=== PATIENT | male | born 1955 | race Caucasian/White ===

== ENCOUNTER 2022-12-13 14:16 | Outpatient (OUT) | payer MEDICARE, OTHER, SELFPAY ==
[2022-12-13 14:41] LABS: Bilirubin Urine NEGATIVE (NEGATIVE); Blood Urine NEGATIVE (NEGATIVE); Clarity Urine CLEAR (CLEAR); Color Urine LT. YELLOW (YELLOW); Glucose Urine UA NEGATIVE (NEGATIVE); Ketones Urine NEGATIVE (NEGATIVE); Leukocyte Esterase Urine NEGATIVE (NEGATIVE); Nitrite Urine NEGATIVE (NEGATIVE); Protein Urine NEGATIVE (NEG/TRACE); Urobilinogen Urine 0.2 EU/dL (0.2-1.0)
[2022-12-13 14:50] LABS: Basophils Absolute Auto 0.1 10^3/uL (0.0-0.1); Basophils Percent Auto 0.9 % (0.2-2.0); Eosinophils Absolute Auto 0.1 10^3/uL (0.0-0.7); Eosinophils Percent Auto 2.5 % (0.9-7.0); Hematocrit 37.4 % (42.0-54.0); Hemoglobin 13.2 g/dL (14.0-18.0); Immature Granulocytes Abs Auto 0.01 10^3/uL (0.00-0.03); Immature Granulocytes Pct Auto 0.2 % (0.0-0.5); Lymphocytes Absolute Auto 1.9 10^3/uL (1.2-3.8); Lymphocytes Percent Auto 33.6 % (20.5-60.0); Mean Corpuscular HGB Conc 35.3 g/dL (29.9-35.2); Mean Corpuscular Volume 90.6 fL (80.0-94.0); Mean Platelet Volume 9.4 fL (9.5-13.5); Monocytes Absolute Auto 0.6 10^3/uL (0.3-0.8); Monocytes Percent Auto 9.6 % (1.7-12.0); Neutrophils Percent Auto 53.2 % (43.0-75.0); Platelet Count 173 10^3/uL (150-450); Red Blood Count 4.13 10^6/uL (4.70-6.10); Red Cell Distribution Width 12.8 % (11.0-15.0); White Blood Count 5.7 10^3/uL (4.0-11.0)
[2022-12-13 14:51] LABS: Estimated Average Glucose 128 mg/dL; Glycohemoglobin A1C 6.1 % (4.5-6.2)
[2022-12-13 14:55] LABS: Bacteria Urine TRACE #/HPF (NONE SEEN); Mucus Urine NONE SEEN (NONE SEEN); RBC Urine 0-2 #/HPF (0-2); Squamous Epithelial Cell Urine RARE #/LPF (NONE/RARE); WBC Urine 0-2 #/HPF (NONE SEEN)
[2022-12-13 14:56] LABS: Cast Seen? NONE SEEN #/LPF (NONE SEEN); Crystals Seen? None Seen #/HPF (None Seen); Urine Culture Indicated NO
[2022-12-13 14:57] LABS: Carbon Dioxide 30.9 mmol/L (21.0-32.0); Chloride 100 mmol/L (98-107); Estimated GFR (African America >60 (>=60); Estimated GFR (Non-African Ame 55 (>=60); Glucose 127 mg/dL (74-106); Potassium 3.9 mmol/L (3.5-5.1); Sodium 137 mmol/L (136-145)
[2022-12-13 15:03] LABS: BUN Creatinine Ratio 14.6
[2022-12-13 15:17] LABS: Prostate Specific Antigen Scrn 0.67 ng/mL (<=4.00)
== END 2022-12-13 14:17 | disposition home or self-care (01) ==
PROVIDERS: PCP Internal Medicine; Visit Provider Internal Medicine
DX: N36.8 Other specified disorders of urethra (principal); I10 Essential (primary) hypertension; Z12.5 Encounter for screening for malignant neoplasm of prostate; R73.01 Impaired fasting glucose; R82.90 Unspecified abnormal findings in urine
CPT/HCPCS: 36415; 80048; 81001; 83036; 85025; 87086; G0103

== ENCOUNTER 2023-03-06 13:46 | Outpatient (OUT) | payer MEDICARE, OTHER, SELFPAY ==
[2023-03-06 14:49] LABS: Basophils Absolute Auto 0.1 10^3/uL (0.0-0.1); Basophils Percent Auto 0.9 % (0.2-2.0); Eosinophils Absolute Auto 0.1 10^3/uL (0.0-0.7); Eosinophils Percent Auto 1.2 % (0.9-7.0); Hematocrit 37.6 % (42.0-54.0); Hemoglobin 12.8 g/dL (14.0-18.0); Immature Granulocytes Abs Auto 0.03 10^3/uL (0.00-0.03); Immature Granulocytes Pct Auto 0.4 % (0.0-0.5); Lymphocytes Absolute Auto 2.1 10^3/uL (1.2-3.8); Lymphocytes Percent Auto 30.5 % (20.5-60.0); Mean Corpuscular Hemoglobin 30.7 pg (25.9-34.0); Mean Corpuscular Volume 90.2 fL (80.0-94.0); Monocytes Absolute Auto 0.7 10^3/uL (0.3-0.8); Monocytes Percent Auto 9.6 % (1.7-12.0); Neutrophils Absolute Auto 3.9 10^3/uL (1.4-6.5); Neutrophils Percent Auto 57.4 % (43.0-75.0); Platelet Count 179 10^3/uL (150-450); Red Blood Count 4.17 10^6/uL (4.70-6.10); Red Cell Distribution Width 12.9 % (11.0-15.0); White Blood Count 6.9 10^3/uL (4.0-11.0)
[2023-03-06 15:14] LABS: Percent Iron Saturation 18.4 %
[2023-04-09 14:45] LABS: Reticulocyte Count 1.44 % (0.60-3.10)
== END 2023-03-06 13:47 | disposition home or self-care (01) ==
LOC: LAB 13:49
PROVIDERS: PCP Internal Medicine; Visit Provider Internal Medicine
DX: D64.9 Anemia, unspecified (principal)
CPT/HCPCS: 36415; 82607; 82728; 82746; 83540; 83550; 85025; 85045

== ENCOUNTER 2023-12-19 09:12 | Outpatient (OUT) | payer MEDICARE, OTHER, SELFPAY ==
--- OUTSIDE RECORDS SUMMARY | 2023-12-19 09:21 | XMS_ITS | CCD ---
Author Organization [facility] Care Team Providers Care Technical Clerk Name Role Phone Eric Rose Unavailable ABHI, DR TEIXEIRA Primary Care Unavailable ABHI, DR TEIXEIRA Admitting Unavailable ABHI, DR TEIXEIRA Attending Unavailable ABHI, DR TEIXEIRA Consulting Unavailable ABHI, DR TEIXEIRA Admitting Unavailable ABHI, DR TEIXEIRA Attending Unavailable ABHI, DR TEIXEIRA Consulting Unavailable ABHI, DR TEIXEIRA Primary Care Unavailable JAIRO MOE Primary Care Physician [phone] Jairo Moe DO Primary Care Provider AURE PIPER Referring Unavailable AURE PIPER Attending Unavailable JAIRO MOE Primary Care Unavailable AURE PIPER Referring Unavailable SAUL, AURE White Referring Unavailable Jairo Moe Unavailable DO Jairo Moe Primary Care Provider [phone] LINWOOD Jay Attending Provider [phone] Jairo Moe Primary Care Unavailable Fariha Jay Attending Unavailable Fariha Jay Admitting Unavailable Lorenzo CHAU Admitting Unavailable Lorenzo CHAU Attending Unavailable Lorenzo CHAU Attending Unavailable Lorenzo CHAU Attending Unavailable Lorenzo CHAU Attending Unavailable CHAULorenzo Attending Unavailable JAIRO MOE Referring Unavailable Lorenzo CHAU Attending Unavailable Allergies Allergy Classification Reported Allergen(s) Allergy Type Date of Onset Reaction(s) Facility (1 source) No Known Medication Allergies; Translations: [No Known Medication Allergies] Propensity to adverse reactions (disorder) [facility] Repository Medications Current Medications Medication Drug Class(es) Dates Sig (Normalized) Sig (Original) allopurinol 100 mg oral tablet (3 sources) Xanthine Oxidase Inhibitor Start: 10-19-2023 take 2 tablets by mouth once daily Allopurinol Active 0 .ROUTE .COMPLEX 180 October 19, 2023 5:12pm TAKE 2 TABLETS BY MOUTH EVERY DAY Start: 09-27-2023 End: 10-19-2023 take 200 mg by mouth once daily Allopurinol Discontinued 200 MG PO Daily September 27, 2023 12:00am October 19, 2023 5:12pm azithromycin 250 mg oral tablet (7 sources) Macrolide Antimicrobial Start: 12-13-2022 Azithromycin 250 MG as directed Orally daily for 5 days Nov, Active colchicine 0.6 mg oral capsule (2 sources) Start: 09-27-2023 take 0.6 mg by mouth once daily Colchicine Active 0.6 MG PO Daily September 27, 2023 12:00am hydroCHLOROthiazide 12.5 mg / olmesartan medoxomil 40 mg oral tablet (11 sources) Thiazide Diuretic, Angiotensin 2 Receptor Cam Start: 12-03-2023 take 1 tablet by mouth once daily Olmesartan-Hydroc hlorothiazide Active 0 .ROUTE .COMPLEX 90 December 03, 2023 1:45pm TAKE 1 TABLET BY MOUTH EVERY DAY Start: 04-18-2023 End: 12-03-2023 take 1 tablet by mouth once daily Olmesartan-Hydrochlorothiazide Discontin ued 1 TAB PO Daily April 18, 2023 1:00am December 03, 2023 1:45pm [facility] Olmesartan Medoxomil-HCTZ 40-12.5 MG CRISSY E 1 TABLET BY MOUTH EVERY DAY FOR 30 DAYS Active Multi Vitamin+ (1 source) Start: 05-23-2023 Multi Vitamin+ Refill(s) 0 Start Date: 05/23/23 Status: Ordered olmesartan medoxomil 40 mg oral tablet (1 source) Angiotensin 2 Receptor Cam take 1 tablet by mouth once daily Olmesartan Medoxomil 40 MG TAKE 1 TABLET BY MOUTH EVERY DAY DIRECTED for 90 Active polysaccharide iron complex 150 mg oral capsule (20 sources) Start: 04-18-2023 take 150 mg by mouth once daily Polysaccharide Iron Complex Active 150 MG PO Daily April 18, 2023 1:00am take 1 capsule by mo [facility] every twenty-four hours Ferrex 150 150 MG 1 capsule Orally Once a day Active Polysaccharide I oxana Complex 150 MG TAKE 1 CAPSULE EVERY OTHER DAY for 30 Not-Taking/PRN Polysaccharide I oxana Complex 150 MG TAKE 1 CAPSULE EVERY OTHER DAY for 30 Not-Taking sildenafil 100 mg oral tablet (13 sources) Phosphodiesterase 5 Inhibitor Start: 08-30-2023 take 1 tablet by mouth once daily as needed Sildenafil Active 0 .ROUTE .COMPLEX 6 August 30, 2023 8:33am TAKE 1 TABLET BY MOUTH ONCE A DAY NEEDED Start: 04-18-2023 End: 08-30-2023 take 100 mg by mouth once daily Sildenafil Discontinue d 100 MG PO Daily April 18, 2023 1:00am August 30, 2023 8:33am Start: 07-07-2022 take 1 tablet by shayla th once daily as needed Sildenafil Citrate 100 MG 1 tablet as needed Orally Once a day as needed for ED for 30 days June, Active Completed/Discontinued Medications Medication Drug Class(es) Dates Sig (Normalized) Sig (Original) amLODIPine 5 mg oral tablet (13 sources) Dihydropyridine Calcium Channel Cam Start: 01-15-2020 End: 04-18-2023 take 5 mg by mouth once daily Amlodipine Discontinued 5 MG PO Daily January 15, 2020 1:00am April 18, 2023 4:32pm take 1 tablet by shayla th every twenty-four hours amLODIPine Besylate 10 MG 1 tablet Orall y Once a day Active Comment on above: Take 5 mg by mouth o nce daily. amoxicillin 875 mg / clavulanate 125 mg oral tablet (20 sources) Penicillin-class Antibacterial Start: 08-24-19 13 take 1 tablet by mouth every twelve hours Amoxicillin-Pot Clavulanate 875-125 MG 1 tablet Orally every 12 hrs for 7 days Feb, Not-Taking/PRN sulfamethoxazole 800 mg / trimethoprim 160 mg oral tablet (12 sources) Dihydrofolate Reductase Inhibitor Antibacterial, Sulfonamide Antimicrobial Start: 09-24-19 21 take 1 tablet by mouth every twelve hours Bactrim DS 800-160 MG 1 tablet Orally Twice a day for 10 days June, Not-Taking/PRN Comment on above: Take 1 tablet by shayla th twice daily. Problems Active Problems Problem Classification Problem Date Documented Date Episodic/Chronic Acute bronchitis (1 source) Acute bronchitis due to other specified organisms Episodic Deficiency and other anemia (2 sources) Iron deficiency anemia due to blood loss; Translations: [Iron deficiency anemia secondary to blood loss (chronic)] Chronic Deficiency and other anemia (1 source) Iron deficiency anemia secondary to blood loss (chronic) Chronic Deficiency and other anemia (5 sources) Anemia, unspecified; Translations: [ANEMIA UNSPECIFIED] Onset: 01-31-2022 Episodic Deficiency and other anemia (12 sources) Iron deficiency anemia; Translations: [Other iron deficiency anemias] 04-19-2023 Episodic Deficiency and other anemia (10 sources) Anemia; Translations: [Anemia, unspecified] Episodic Deficiency and other anemia (1 source) Other iron deficiency anemias Episodic Diabetes mellitus without complication (19 sources) Impaired fasting glucose; Translations: [Impaired fasting glycemia] Onset: 12-13-2021 Episodic Disorders of lipid metabolism (13 sources) Pure hypercholesterolemia , unspecified; Translations: [Hypercholesterolemi a] Onset: 12-18-2021 12-18-2023 Chronic Esophageal disorders (8 sources) Gastro-esophageal reflux disease with esophagitis; Translations: [Gastro-esophageal reflux disease with esophagitis, without bleeding] Chronic Essential hypertension (20 sources) Essential (primary) hypertension; Translations: [Hypertensive disorder] Onset: 12-18-2021 12-13-2020 Chronic Genitourinary symptoms and ill-defined conditions (20 sources) Microscopic hematuria; Translations: [Other microscopic hematuria] Onset: 03-01-2022 Episodic Gout and other crystal arthropathies (2 sources) Acute gout; Translations: [Gout, unspecified] 09-27-2023 Chronic Hyperplasia of prostate (20 sources) Benign prostatic hypertrophy without outflow obstruction; Translations: [Benign prostatic hyperplasia without lower urinary tract symptoms] Onset: 03-01-2022 Chronic Nonspecific chest pain (12 sources) Other chest pain; Translations: [Chest pain] Onset: 01-18-2022 01-18-2022 Episodic Other aftercare (1 source) Other termite control service representative (current) drug therapy; Translations: [OTH WELL LOGGING MUD ANALYSIS CAPTAIN CURRENT DRUG THERAPY] Onset: 12-18-2021 Episodic Other aftercare (10 sources) H/O: high risk medication; Translations: [Other jail (current) drug therapy] Episodic Other diseases of bladder and urethra (11 sources) Other specified disorders of urethra; Translations: [Bloody urethral discharge] Episodic Other diseases of bladder and urethra (1 source) Urethral stricture; Translations: [Unspecified urethral stricture, male, unspecified site] 09-27-2023 Episodic Other diseases of bladder and urethra (1 source) Unspecified urethral stricture, male, unspecified site; Translations: [Urethral stricture, unspecified] 09-27-2023 Episodic Other diseases of veins and lymphatics (12 sources) Peripheral venous insufficiency; Translations: [Venous insufficiency (chronic) (peripheral)] 04-18-2023 Episodic Other diseases of veins and lymphatics (2 sources) Venous insufficiency (chronic) (peripheral) Episodic Other lower respiratory disease (1 source) Dyspnea on exertion; Translations: [Other forms of dyspnea] Episodic Other male genital disorders (9 sources) Erectile dysfunction co-occurrent and due to arterial insufficiency; Translations: [Erectile dysfunction due to arterial insufficiency] Chronic Other nutritional; endocrine; and metabolic disorders (1 source) Body mass index 40+ - severely obese; Translations: [Morbid (severe) obesity due to excess calories] Chronic Other nutritional; endocrine; and metabolic disorders (10 sources) Morbid obesity; Translations: [Morbid (severe) obesity due to excess calories] Chronic Other nutritional; endocrine; and metabolic disorders (1 source) Morbid (severe) obesity due to excess calories Chronic Other nutritional; endocrine; and metabolic disorders (1 source) Obesity; Translations: [Obesity, unspecified] 12-18-2023 Chronic Other nutritional; endocrine; and metabolic disorders (1 source) Obesity, unspecified; Translations: [Obesity, unspecified] 12-18-2023 Chronic Other screening for suspected conditions (not mental disorders or infectious disease) (9 sources) Encounter for screening for malignant neoplasm of prostate; Translations: [Screening for malignant neoplasm done] Onset: 12-18-2021 Episodic Other upper respiratory infections (1 source) Acute maxillary sinusitis, unspecified Episodic Residual codes; unclassified (13 sources) Obstructive sleep apnea syndrome; Translations: [Obstructive sleep apnea (adult) (pediatric)] 04-19-2023 Chronic Residual codes; unclassified (2 sources) Obstructive sleep apnea (adult) (pediatric); Translations: [Obstructive sleep apnea (adult)(pediatric)] Onset: 02-22-2021 Resolved: 02-22-2021 Chronic Residual codes; unclassified (1 source) Obstructive sleep apnea (adult)(pediatric); Translations: [Obstructive sleep apnea (adult) (pediatric)] Onset: 03-20-2023 Chronic Residual codes; unclassified (11 sources) Insomnia; Translations: [Insomnia, unspecified] Episodic Skin and subcutaneous tissue infections (20 sources) Cellulitis and abscess of toe; Translations: [Cellulitis, toe] Episodic Unclassified (6 sources) Patient encounter status 03-01-2022 Viral infection (1 source) Disease caused by 2019-nCoV; Translations: [COVID-19] 01-15-2020 Episodic Past or Other Problems Problem Classification Problem Date Documented Da te Episodic/Chronic Esophageal disorders (2 sources) Esophageal disorders; Translations: [Gastro-esophageal reflux disease with esophagitis, without bleeding] Joint disorders and dislocations; trauma-related (3 sources) Acute tear of medial meniscus of right knee; Translations: [Other tear of medial meniscus, current injury, right knee, initial encounter] Onset: 07-22-2018 07-22-2018 Episodic Residual codes; unclassified (1 source) Insomnia, unspecified Onset: 02-22-2021 Resolved: 02-22-2021 Episodic Results Test Name Value Interpretation Reference Range Facility Ambulatory Visit Summaryon 0 05-23-2023 Ambulatory Visit Summary OSWALDO DAVIES :1955 Visit Date:05/23/2023 Ambulatory Visit Instructions Your Diagnosis Gross hematuria Prostate cancer screening BPH (benign prostatic hyperplasia) History of urethral stricture Your Care Team Attending Physician - Lorenzo CHAU MD Primary Care Physician - JAIRO MOE DO This Is Your Medications List Contact prescribing physician if questions or concerns amlodipine (amLODIPine 5 mg Tab) multivitamin (Multi Vitamin+) Procedures Performed Cystourethroscopy with dilation of urethral stricture (01/05/2023), Colonoscopy. Discharge Vitals Temperature (Temporal Artery) 36.2 ?C Heart Rate (Peripheral) 79 Respiratory Rate 16 Blood Pressure 132/94 Height 160 cm Height 63 in Weight 120.7 kg Weight 265.54 lb BMI 47.15 What to do next You Need to Schedule the Following Appointments Follow Up with Lorenzo CHAU MD, URL When: Where: [facility] [address] , [place] [address]- Medications What How Much When Instructions Unchanged amlodipine (amLODIPine 5 mg Tab) Every day Contact prescribing physician if questions or concerns Unchanged multivitamin (Multi Vitamin+) Contact prescribing physician if questions or concerns Allergies No Known Medication Allergies Problems Ongoing - Any problem that you are currently receiving treatment for. BPH (benign prostatic hyperplasia) Gross hematuria History of urethral stricture Hypertension Microscopic hematuria Prostate cancer screening Patient Survey You may receive a survey via text or e-mail asking about your office visit. Please share your experience with us by completing your survey. We appreciate your feedback and thank you for choosing us for your care. Education Materials Urethral Stricture Urethral stricture is narrowing of the tube (urethra) that carries urine from the bladder out of the body. The urethra can become narrow due to scar tissue from an injury or infection. This can make it difficult to pass urine. In women, the urethra opens above the vaginal opening. In men, the urethra opens at the tip of the penis, and the urethra is much longer than it is in women. Because of the length of the male urethra, urethral stricture is much more common in men. This condition is treated with surgery. What are the causes? In both men and women, common causes of urethral stricture include: ? Urinary tract infection (UTI). ? Sexually transmitted infection (STI). ? Use of a tube placed into the urethra to drain urine from the bladder (urinary catheter). ? Urinary tract surgery. In men, common causes of urethral stricture include: ? A severe injury to the pelvis. ? Prostate surgery. ? Injury to the penis. In many cases, the cause of urethral stricture is not known. What increases the risk? You are more likely to develop this condition if you: ? Are male. Men who have had prostate surgery are at risk of developing this condition. ? Use a urinary catheter. ? Have had urinary tract surgery. What are the signs or symptoms? The main symptom of this condition is difficulty passing urine. This may cause decreased urine flow, dribbling, or spraying of urine. Other symptom of this condition may include: ? Frequent UTIs. ? Blood in the urine. ? Pain when urinating. ? Swelling of the penis in men. ? Inability to pass urine (urinary obstruction). How is this diagnosed? This condition may be diagnosed based on: ? Your medical history and a physical exam. ? Urine tests to check for infection or bleeding. ? X-rays. ? Ultrasound. ? Retrograde urethrogram. This is a type of test in which dye is injected into the urethra and then an X-ray is taken. ? Urethroscopy. This is when a thin tube with a light and camera on the end (urethroscope) is used to look at the urethra. How is this treated? This condition is treated with surgery. The type of surgery that you have depends on the severity of your condition. You may have: ? Urethral dilation. In this procedure, the narrow part of the urethra is stretched open (dilated) with dilating instruments or a small balloon. ? Urethrotomy. In this procedure, a urethroscope is placed into the urethra, and the narrow part of the urethra is cut open with a surgical blade inserted through the urethroscope. ? Open surgery. In this procedure, an incision is made in the urethra, the narrow part is removed, and the urethra is reconstructed. Follow these instructions at home: ? Take [id number] and prescription medicines only as told by your health care provider. ? If you were prescribed an antibiotic medicine, take it as told by your health care provider. Do not stop taking the antibiotic even if you start to feel better. ? Drink enough fluid to keep your urine pale yellow. ? Keep all (more content not included)... Normal [facility] Consent for Procedure/Surger yon 05-23-2023 Consent for Procedure/Surgery [id number] Normal [facility] Patient Educationon 05-23-19 24 Patient Education Urology Urethral Stricture Urethral stricture is narrowing of the tube (urethra) that carries urine from the bladder out of the body. The urethra can become narrow due to scar tissue from an injury or infection. This can make it difficult to pass urine. In women, the urethra opens above the vaginal opening. In men, the urethra opens at the tip of the penis, and the urethra is much longer than it is in women. Because of the length of the male urethra, urethral stricture is much more common in men. This condition is treated with surgery. What are the causes? In both men and women, common causes of urethral stricture include: ? Urinary tract infection (UTI). ? Sexually transmitted infection (STI). ? Use of a tube placed into the urethra to drain urine from the bladder (urinary catheter). ? Urinary tract surgery. In men, common causes of urethral stricture include: ? A severe injury to the pelvis. ? Prostate surgery. ? Injury to the penis. In many cases, the cause of urethral stricture is not known. What increases the risk? You are more likely to develop this condition if you: ? Are male. Men who have had prostate surgery are at risk of developing this condition. ? Use a urinary catheter. ? Have had urinary tract surgery. What are the signs or symptoms? The main symptom of this condition is difficulty passing urine. This may cause decreased urine flow, dribbling, or spraying of urine. Other symptom of this condition may include: ? Frequent UTIs. ? Blood in the urine. ? Pain when urinating. ? Swelling of the penis in men. ? Inability to pass urine (urinary obstruction). How is this diagnosed? This condition may be diagnosed based on: ? Your medical history and a physical exam. ? Urine tests to check for infection or bleeding. ? X-rays. ? Ultrasound. ? Retrograde urethrogram. This is a type of test in which dye is injected into the urethra and then an X-ray is taken. ? Urethroscopy. This is when a thin tube with a light and camera on the end (urethroscope) is used to look at the urethra. How is this treated? This condition is treated with surgery. The type of surgery that you have depends on the severity of your condition. You may have: ? Urethral dilation. In this procedure, the narrow part of the urethra is stretched open (dilated) with dilating instruments or a small balloon. ? Urethrotomy. In this procedure, a urethroscope is placed into the urethra, and the narrow part of the urethra is cut open with a surgical blade inserted through the urethroscope. ? Open surgery. In this procedure, an incision is made in the urethra, the narrow part is removed, and the urethra is reconstructed. Follow these instructions at home: ? Take [id number] and prescription medicines only as told by your health care provider. ? If you were prescribed an antibiotic medicine, take it as told by your health care provider. Do not stop taking the antibiotic even if you start to feel better. ? Drink enough fluid to keep your urine pale yellow. ? Keep all follow-up visits as told by your health care provider. This is important. Contact a health care provider if: ? You have signs of a urinary tract infection, such as: ? Frequent urination or passing small amounts of urine frequently. ? Needing to urinate urgently. ? Pain or burning with urination. ? Urine that smells bad or unusual. ? Cloudy urine. ? Pain in the lower abdomen or back. ? Trouble urinating. ? Blood in the urine. ? Vomiting or being less hungry than normal. ? Diarrhea or abdominal pain. ? Vaginal discharge, if you are female. ? Your symptoms are getting worse instead of better. Get help right away if: ? You cannot pass urine. ? You have a fever. ? You have swelling, bruising, or discoloration of your genital area. This includes the penis, scrotum, and inner thighs for men, and the outer genital organs (vulva) and inner thighs for women. ? You develop swelling in your legs. ? You have difficulty breathing. Summary ? Urethral stricture is narrowing of the tube (urethra) that carries urine from the bladder out of the body. The urethra can become narrow due to scar tissue from an injury or infection. ? This condition can make it difficult to pass urine. ? This condition is treated with surgery. The type of surgery that you have depends on the severity of your condition. ? Contact a health care provider if your symptoms get worse or you have signs of a urinary tract infection. This information is not intended to replace advice given to you by your health care provider. Make sure you discuss any questions you have with your health care provider. Document Revised: 12/13/2021 Document Reviewed: 12/13/2021 [employer] Patient Education ? 2022 [employer]. [facility] Reminderson 05-23-2023 Reminders -- From: Erum Whittaker To: [facility] - Recalls Chau; Cc: Erum Whittaker; Sent: 01/22/2023 12:31:21 EST Show up: 05/21/2023 12:31:00 EDT Subject: Cysto/UD Due Date/Time: 06/11/2023 12:31:00 EDT Reminder/Recall Patient needs a Cysto/UD with [facility] sounds sched for June 2023, 6 mo Patient sched for 02/01/24. PRW wanted 8 month from appt 05/23/23.LG Normal [facility] Urology Office/Clinic Noteon 05-23-2023 Urology Office/Clinic Note Chief Complaint 5 month follow up HPI Staff 5 month follow up to Cysto/UD 01/05/23 Previous DX: microscopic hematuria. S/P Cysto/UD done 01/10/21. previous PSA 0.67 done 12/13/22 Dysuria: denies pain but sometimes has burning Incomplete bladder emptying: denies Hematuria: denies visible blood Frequency: denies Urgency: denies Nocturia: it varies sometimes Stream: denies hesitancy, denies weak stream Leaking: denies Post void dripping: denies Wearing pads/ Depends: denies Urge incontinence: denies Stress incontinence: denies Incontinence without Sensory Awareness: denies Abdominal pain: denies Flank pain: denies Sexual complaints: denies History of Present Illness Tests reviewed: reviewed UA I have reviewed the previous health record information and history for this patient from Dr. Chau. I have reviewed and verified the staff HPI to be accurate for this encounter. There have been no associated fever, chills, flank pain, or blood in the urine. Denies any urinary infections since last encounter. Review of Systems PHQ Score Initial Depression Screen Score: 0 SCORE ROS - Provider Constitutional: denies weight loss, denies hot flashes. Eyes: denies eye problems. Gastrointestinal: denies nausea, denies vomiting. Cardiovascular: denies chest pain or angina. Integumentary: no dryness Musculoskeletal: denies musculoskeletal symptoms. ENMT: denies otolaryngeal symptoms. Respiratory: no shortness of breath. Heme/Lymph: denies easy bleeding tendency, denies easy bruising tendency. Psychiatric: no confusion, no anxiety. Genitourinary: See HPI. Physical Exam Vitals & Measurements T: 36.2 ?C(Temporal Artery) HR: 79(Peripheral) RR: 16 BP: 132/94 HT: 63 in HT: 160 cm WT: 120.7 kg WT: 265.54 lb BMI: 47.15 General Appearance: alert, no distress, well nourished, well developed male. Genitourinary: normal scrotum, normal testes, normal urethra, normal epididymis, normal vas deferens/spermatic cord. Flank Pain: none. Bladder: nonpalpable. Assessment/Plan 1. Gross hematuria (R31.0: Gross hematuria) Resolved. UA today negative for blood and infection. No more blood spotting. 2. Prostate cancer screening (Z12.5: Encounter for screening for malignant neoplasm of prostate) PSA: 10/12/20 - 0.55 12/13/21 - 0.51 12/13/22 - 0.67 Denies family Hx of prostate CA, breast CA, ovarian CA, and pancreatic CA. [1] 3. BPH (benign prostatic hyperplasia) (N40.0: Benign prostatic hyperplasia without lower urinary tract symptoms) IPSS 3 (21). Good stream. Feels he empties completely. 4. History of urethral stricture (Z87.448: Personal history of other diseases of urinary system) S/P Cysto/UD 01/10/21. S/o Cysto/UD 01/05/23. Educated pt on possible etiologies of urethral strictures. Will schedule Cysto with UD around 12/2023. The procedure risks, benefits, details, and treatment alternatives have been discussed with the patient. These include bleeding, infection, recurrent scar in over 50%, need for repeat dilation or other procedures, no symptom relief with dilation, among others. Full informed consent has been obtained. Will order Local anesthesia. Follow-up With When Contact Information MANJINDER LYLES, Lorenzo Valenzuela, [facility] [address], [place] [address]- Additional Instructions: schedule Cysto with UD around 12/2023 Patient Education Urethral Stricture I, Sue Melissa, personally scribed for Dr. Chau on 05/23/2023 09:19:44. . Documentation recorded by the scribe, Sue Melissa, accurately reflects the services(s) I performed and decisions made by me. Authenticated by Dr. Chau on 05/23/2023 09:20:53. Problem List/Past Medical History Ongoing BPH (benign prostatic hyperplasia) Gross hematuria History of urethral stricture Hypertension Microscopic hematuria Prostate cancer screening Historical No qualifying data Procedure/Surgical History Cystourethroscopy with dilation of urethral stricture (01/05/2023), Colonoscopy. Medications amLODIPine 5 mg Tab, Oral, Daily Multi Vitamin+ Allergies No Known Medication Allergies Social History Tobacco Never (less than 100 in lifetime) Tobacco Use:. Never Smokeless Tobacco Use:., 05/23/2023 Family History Heart disease: Father. Hypertension: Mother. Stroke: Mother and Father. Immunizations Vaccine Date Status diphtheria/pertussi s, acel/tetanus adult 11/19/2020 Recorded SARS-CoV-2 (COVID-19) mRNA-1273 vaccine 07/02/2020 Recorded SARS-CoV-2 (COVID-19) mRNA-1273 vaccine 06/04/2020 Recorded SARS-CoV-2 (COVID-19) Ad26 vaccine 04/30/2020 Recorded SARS-CoV-2 (COVID-19) Ad26 vaccine 04/09/2020 Recorded Lab Results Ambulatory Point of Care Results Bilirubin Urine Dipstick: Negative (05/23/23 08:34:00) Blood Urine Dipstick: Trace-intact (05/23/23 08:34:00) Glucose Urine Dipstick: Negative (05/23/23 08:34:00) Ketones Urin (more content not included)... Normal [facility] Comment on above: Result Comment: Elec tronically Signed By: Lorenzo CHAU MD\.br\Date and Time Signed: 05/23/23 09:20 EDT\.br\Electronically Co-Signed By: Sue Melissa\.br\Date and Time Co-Signed: 05/23/23 09:19 EDT [facility] Fish and Urine Cyt o ([facility])on 01-10-2023 UV[facility] & UC Diagnosis Info Invalid Interpretation Code [facility] Comment on above: Result Comment: A:Ur ine,Urine:Voided Diagnosis Summary - No evidence of high grade urothelial carcinoma identified. Adequate cellularity for evaluation. Diagnosis Summary - The [facility] FISH study detected normal copy numbers for chromosomes 3, 7, 17, and 9p21. 139 cells were analyzed in this evaluation. No evidence of aneuploidy for chromosomes 3, 7, or 17 or deletion of the 9p21 locus was found in cells present in this specimen. This test does not rule out the possibility of a low grade non-invasive papillary urothelial carcinoma. These findings should be correlated with cytology and cystoscopy results.* CPT 33300, 91564. Microscopic Notes - Microscopic Notes - Abnormal cells 9p21 deletions: Abnormal cells aneploid events: Total cells analyzed: 139 Hematuria: Gross Description Site ID:A color Alma fixative Alcohol Received 110 mls of clear alma fluid with the patient's name and, Urine on the vial. Electronically signed by : on: 01/10/2023 09:07:03 Performed By: #### 1 [id number] ####[facility] [address] [place] [address] Operative Reporton 3 Operative Report [id number]#1.00TIFF Normal [facility] Physician Referralon 023 Physician Referral [id number]#1.00TIFF Normal [facility] Screenson 01-03-2023 Screens [id number]#1.00TIFF Normal [facility] Ambulatory Visit Summaryon 03-04-2022 Ambulatory Visit Summary OSWALDO DAVIES :1955 Visit Date:01/02/2023 Ambulatory Visit Instructions Your Diagnosis Gross hematuria Prostate cancer screening BPH (benign prostatic hyperplasia) History of urethral stricture Tests Performed Urnls Dip Stick Auto w/o Microscopy POC 43910 Your Care Team Attending Physician - Lorenzo CHAU MD Primary Care Physician - JAIRO MOE DO Referring Physician - JAIRO MOE DO This Is Your Medications List Contact prescribing physician if questions or concerns amlodipine (amLODIPine 5 mg Tab) Procedures Performed Colonoscopy. Discharge Vitals Blood Pressure 144/88 Height 160 cm Height 63 in Weight 121.3 kg Weight 266.86 lb BMI 47.38 What to do next You Need to Schedule the Following Appointments Follow Up with MANJINDER LYLES, Lorenzo Valenzuela, [place] When: Comments: Sched Cysto w/Possible UD Where: [facility] [address] [place] [address]- Medications What How Much When Instructions Unchanged amlodipine (amLODIPine 5 mg Tab) Every day Contact prescribing physician if questions or concerns Test Results Urnls Dip Stick Auto w/o Microscopy POC 51928 (01/02/2023) Bilirubin Urine Dipstick - Negative Blood Urine Dipstick - Trace-intact Glucose Urine Dipstick - Negative Ketones Urine Dipstick - Negative Leukocytes Urine Dipstick - Negative Nitrite Urine Dipstick - Negative Protein Urine Dipstick - Negative Specific [facility] Urine Dipstick - 1.025 Urine Appearance Urine Dipstick - Clear Urine Color Urine Dipstick - Light yellow Urobilinogen Urine Dipstick - Normal 0.2-1 EU/dl pH Urine Dipstick - 6 Allergies No Known Medication Allergies Problems Ongoing - Any problem that you are currently receiving treatment for. BPH (benign prostatic hyperplasia) Gross hematuria History of urethral stricture Hypertension Microscopic hematuria Prostate cancer screening Patient Survey You may receive a survey via text or e-mail asking about your office visit. Please share your experience with us by completing your survey. We appreciate your feedback and thank you for choosing us for your care. Normal [facility] Consent for Procedure/Surger yon 01-02-2023 Consent for Procedure/Surgery [id number] DD#1.00TIFF Normal [facility] UroVysion Fish and Urine Cyt o ( Labs)on 01-02-2023 [facility] Method of Extraction Voided Normal [facility] Comment on above: Performed By: #### 1 [id number] ####[facility] [address] [place] [address] [facility] Number of Jars 1 Invalid Interpretation Code [facility] Comment on above: Performed By: #### 1 [id number] ####[facility] [address] [place] [address] [facility] Specimen Urine Normal [facility] Comment on above: Performed By: #### 1 [id number] ####[facility] [address] [place] [address] [facility] Type of Service Technical Only Normal [facility] Comment on above: Performed By: #### 1 [id number] ####[facility] [address] [place] [address] Urology Office/Clinic Noteon 01-02-2023 Urology Office/Clinic Note Chief Complaint 1 year F/U HPI Staff 11 month follow up. Previous DX: microscopic hematuria. S/P Cysto/UD done 01/10/21. Current PSA 0.67 done 12/13/22, previous PSA 0.51 done 12/13/21. IPSS 21 He notices he has never seen blood in his urine, But he is noticing blood spots in his underwear it goes back and forth if he sees it during the day one day then the next day would be at night going on about a month now Dysuria: yes, started a month ago Incomplete bladder emptying: no Hematuria: denies visible blood (he has blood spots on his underwear) Frequency: every hour Urgency: denies Nocturia: once (sometimes his blood spot will be at night too) Stream: sometimes hesitation, start stop stream, weaker stream Leaking: denies Post void dripping: denies Wearing pads/ Depends: denies Urge incontinence: denies Stress incontinence: denies Incontinence without Sensory Awareness: denies Abdominal pain: denies Flank pain: denies Sexual complaints: denies History of Present Illness Tests reviewed: reviewed UA I have reviewed the previous health record information and history for this patient from . I have reviewed and verified the staff HPI to be accurate for this encounter. There have been no associated fever, chills, flank pain, or blood in the urine. Denies any urinary infections since last encounter. Review of Systems PHQ Score Initial Depression Screen Score: 0 SCORE ROS - Provider Constitutional: denies weight loss, denies hot flashes. Eyes: denies eye problems. Gastrointestinal: denies nausea, denies vomiting. Cardiovascular: denies chest pain or angina. Integumentary: no dryness Musculoskeletal: denies musculoskeletal symptoms. ENMT: denies otolaryngeal symptoms. Respiratory: no shortness of breath. Heme/Lymph: denies easy bleeding tendency, denies easy bruising tendency. Psychiatric: no confusion, no anxiety. Genitourinary: See HPI. Physical Exam Vitals & Measurements BP: 144/88 HT: 63 in HT: 160 cm WT: 121.3 kg WT: 266.86 lb BMI: 47.38 General Appearance: alert, no distress, well nourished, well developed male. Assessment/Plan 1. Gross hematuria (R31.0: Gross hematuria) Hx microscopic hematuria (trace-intact 01/10/21, small 12/13/20). CT abd/pelvis w/o contrast 10/12/20 - 1.8 cm hypodensity left midpole measuring 5 HU, suspected cyst; bladder w/o lesion, bladder wall thickening or calculus. No hydronephrosis or obstructing calculi Cysto w/ UD 01/10/21 - Very tight membranous urethral stricture that wouldn't allow for passage of scope. Mild bladder trabeculations. Prostatic urethra w/ moderate hypertrophy. Cytology 01/10/21 - NEG. UA 03/01/22 - trace-lysed He notices he has never seen blood in his urine, But he is noticing blood spots in his underwear it goes back and forth if he sees it during the day one day then the next day would be at night going on about a month now. Pt states that he has some burning when he voids sometimes, and no odors, has the sensation to void, and when he goes he doesn't, and sometimes has to push/strain to void. Discussed options. The patient is aware that a distinct etiology of the hematuria may not be clear upon conclusion of the workup. Will initiate hematuria workup to include upper urinary tract imaging, as well as evaluation of the urinary cells with urine cytology and possible a FISH test. A cystoscopy w/ possible UD will be scheduled to rule out lower urinary tract pathology. The rationale for this workup has been discussed, and all questions have been answered. Informed consent will be obtained. Prophylactic antibiotics will be given. -Will schedule Cysto with possible UD. The procedure risks, benefits, details, and treatment alternatives have been discussed with the patient. These include bleeding, infection, recurrent scar in over 50%, need for repeat dilation or other procedures, no symptom relief with dilation, among others. Full informed consent has been obtained. Will order Local anesthesia. -Will send urine for FISH/Cytology. -Will send Keflex 500mg x2days. Discussed the medication side effects, and the patient will monitor closely for these, as well as for symptom improvement. If severe side effects occur, the medication should be stopped and the office notified. 2. Prostate cancer screening (Z12.5: Encounter for screening for malignant neoplasm of prostate) PSA: 10/12/20 - 0.55 12/13/21 - 0.51 12/13/22 - 0.67 Denies family Hx of prostate CA, breast CA, ovarian CA, and pancreatic CA. 3. BPH (benign prostatic hyperplasia) (N40.0: Benign prostatic hyperplasia without lower urinary tract symptoms) IPSS 21(3) Denies bothersome urinary complaints since last OV. Not on any prostate meds. 4. History of urethral stricture (Z87.448: Personal history of other diseases of urinary system) S/P Cysto/UD 01/10/21. Denies bothersome urinary complaints since last OV. -See #1 Follow-up With When Contact Information MANJINDER LYLES, (more content not included)... Normal [facility] Comment on above: Result Comment: Elec tronically Signed By: Lorenzo CHAU MD\.br\Date and Time Signed: 01/02/23 12:36 EST\.br\Electronically Co-Signed By: Coni Davies\.br\Date and Time Co-Signed: 01/02/23 12:34 EST Physician Referralon 023 Physician Referral [id number] 09#1.00TIFF [facility] Physician Referral [id number]#1.00TIFF [facility] Basic Metabolic Panelon 11-20 Anion gap [Moles/Vol] 10.0 mmol/L [facility] [employer] Other Calcium [Mass/Vol] 9.8848881 mg/dL Normal 8.5-10 .1 mg/dL [employer] Other Chloride [Moles/Vol] 100 mmol/L Normal 98-107 mmol/L [employer] Other CO2 [Moles/Vol] 30.92667003 mmol/L Normal 21.0-3 2.0 mmol/L [employer] Other Creatinine [Mass/Vol] 1.82598179 mg/dL Normal 0. 70-1.30 mg/dL [employer] Other Glucose [Mass/Vol] 127 mg/dL High 74-106 mg/dL [facility] Other Potassium [Moles/Vol] 3.11108228 mmol/L Normal 3 .5-5.1 mmol/L [employer] Other Sodium [Moles/Vol] 137 mmol/L Normal 136-145 mmol/L [employer] Other Urea nitrogen [Mass/Vol] 19.0453415 mg/dL High 7.0-18.0 mg/dL [facility] [employer] Other Urea nitrogen/Creatinine [Mass ratio] 14.6 mg/mg [facility] [employer] Other Basic Metabolic Panel see note [facility] [employer] Other Basic Metabolic Panel 55 Low >=60 [facility] [employer] Other Basic Metabolic Panel >60 >=60 [facility] [employer] Other PSA SCREENINGon 12-13-2022 PSA SCREENING 0.67 ng/mL <=4.00 ng/mL [facility] [employer] Other UA RANDOM W/MICROSCOPICon Clarity (U) CLEAR CLEAR [facility] [employer] Other Color (U) LT. YELLOW YELLOW [facility] [employer] Other Ketones Ql (U) Negative NEGATIVE mg/dL [facility] [employer] Other Leukocyte esterase Test strip Ql (U) Negative NEGATIVE [facility] [employer] Other pH (U) 7.0 [pH] 5.0-9.0 [facility] [employer] Other UA RANDOM W/MICROSCOPIC 0-2 #/HPF 0-2 #/HPF [facility] [employer] Other UA RANDOM W/MICROSCOPIC 1.020 1.005-1.025 [facility] [employer] Other UA RANDOM W/MICROSCOPIC Negative NEGATIVE [facility] [employer] Other UA RANDOM W/MICROSCOPIC 0.2 EU/dL 0.2-1.0 EU/dL [facility] [employer] Other UA RANDOM W/MICROSCOPIC TRACE #/HPF Abnormal NONE SEEN #/HPF [facility] Other UA RANDOM W/MICROSCOPIC NONE SEEN NONE SEEN [facility] Other UA RANDOM W/MICROSCOPIC RARE #/LPF NONE/RARE #/LPF [facility] [employer] Other UA RANDOM W/MICROSCOPIC None Seen #/HPF None Seen #/HPF [facility] Other UA RANDOM W/MICROSCOPIC NONE SEEN #/LPF NONE SEEN #/LPF [facility] [employer] Other UA RANDOM W/MICROSCOPIC NO [employer] Other CNOVon 03-17-2022 CNOV Office Visit (CARDAV) ---- MARLO DAVIES ([id number]) 1955 M Date Time Provider Department 03/17/22 9:20 AM AURE PIPER During your visit today, we recorded the following information about you: Pulse Blood pressure Weight Height 84/minute 136/80 121.1 kg 1.727 m Aure Piper MD 03/17/2022 9:46 AM Signed SUBJECTIVE: Marlo Davies is a 66 year old male. Patient presents with: New Patient Marlo Davies was referred by Aure Piper HPI: The patient is an extremely pleasant, 66-year-old gentleman, who underwent provocative nuclear testing, December 2021, after describing exertional dyspnea to his primary care physician. The stress test revealed no evidence for inducible ischemia or previous myocardial scarring, with preserved left and right ventricular size and systolic function and normal ejection fraction. CARDIAC HISTORY: SYMPTOMS: Chest pain/discomfort: No, Palpitations:No, Arrhythmia: No Dyspnea: Yes, Dyspnea at rest: No, Nocturnal dyspnea: Yes Orthopnea: No, Diaphoresis: No, Dizziness: No, Syncope: No, Edema: Yes, Nocturia: Yes, Impaired exercise tolerance: Yes, Claudication:No CONDITIONS: Hypertension: Yes, Heart failure:No, [place] [employer] Functional Classification: Class I, Atrial fibrillation:No, History of myocardial infarction/angina: No, History of CABG/PCI:No, Valvular heart disease: No, Cardiomyopathy: No, Aortic diseases: No, Peripheral vascular disease: No, History of cerebrovascular accident: No, History of pulmonary embolism No, History of DVT No. History of rheumatic fever: No, History of transient ischemic attacks: No, Congenital heart disease: No, Pericarditis: No, Pericardial Effusion: No, Coronary Calcium: No, Pulmonary HTN: No CORONARY RISK FACTORS: Family history of coronary artery disease Yes: Family history CAD in a first degree relative father Premature onset: No, Tobacco use No: Remote, Sedentary lifestyle Yes, Hypertension Yes, Hyperlipidemia No, Diabetes mellitus No, Obesity Yes, Peripheral vascular disease No. HISTORIES: No family history on file. No past medical history on file. No past surgical history on file. 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[employer] ALLERGIES No Known Allergies REVIEW OF SYSTEMS: Constitutional: Fatigue: No, Weight loss: No, Weight gain: No, Fever: No, Chills: No Eyes: Blurred or Reduced Vision:No Ears: Hearing Loss:No Nose,Throat: Epistaxis:No, Bleeding gums:No Respiratory: Dyspnea:Yes, Cough:No, Hemoptysis:No, Wheezing:No, Pleuritic pain:No, Sleep Apnea:No, COPD:No, Asthma:No Gastrointestinal: Hematemesis:No, Blood in stool:No, Abdominal pain:No, Nausea and/or vomiting:No Genitourinary: Dysuria:No, Hematuria:No, Renal insufficiency:No, Pregnancies:No, BPH:No, Erectile Dysfunction:No Hematologic: Anemia:No, Bruises easily:No, Bleeds easily:No History of Cancer: No Musculoskeletal: Muscle pain:No, Arthritis/Arthralgi a:No Skin: Rash:No, Pruritus:No Neurologic: Headache:No, Dizziness:No, Seizures:No, Dementia:No Psychiatric: Anxiety:No, Depression:No, Over the past 2 weeks have you felt down, depressed or hopeless?:No, Over the past 2 weeks have you felt little interest or pleasure in doing things?:No Endocrine: Polyphagia:No, Polydipsia:No, Polyuria:No, Goiter:No, Hyper/hypothyroidis m:No, Dyslipidemia:No Allergic, Immunology: Urticaria:No, Collagen vascular disease:No Other: The rest of the review of systems is unremarkable and negative or non-contributory. OBJECTIVE: VITALS: BP 136/80 Pulse 84 Ht 5' 8 (1.73m) Wt 267 lb (121.1kg) BMI 40.61 kg/(m2). PHYSICAL EXAMINATION: GENERAL APPEARANCE: Appears Healthy:Yes, Obese:Yes, Acute distress:No, Appearance consistent with age:Yes, Responds appropriately: Yes MENTAL STATUS: Alert:Yes, Cooperative:Yes, Pleasant:Yes, Affect: normal EYES: Conjunctiva/corneas normal:Yes, PERRL:Yes, Scleral icterus:No, Xanthelasma:No HEAD, NECK: Good oral hygiene:Yes, Oral mucosa normal:Yes, Jugular venous distention:No, Hepatojugular reflux:No, Thyromegaly:No, Carotid endarterectomy:No,T hyroidectomy :No RESPIRATORY:Chest movement symmetrical:Yes, Respiratory effort normal:Yes, Percussion of chest normal:Yes, Breath sounds normal:Yes, Crackles:No, Rales:No, Rhonchi:No, Wheezing:No, Pleural friction rub:No, Evidence of pacemaker/ICD:No, Median sternotomy scar:No, Sternal instability:No CARDIAC: [place] beat not localized, Cardiac thrill:No, Heart rate normal:Yes, Heart rhythm normal:Yes, S1 normal:Yes, S2 normal:Yes, S3 ausculated:No, S4 ausculated:No, Gallop ausculated:No, Heart murmur:No, Prosthetic valve click:No, Pericardial friction rub:No ABDOMINAL:Abdomen soft, non-tender. BS normal. No masses or organomegaly. and positive findings: Morbid obese VASCULAR/EXTREMITIE S:Radial p (more content not included)... Normal [facility] URINALYSISOrdered By: Maine Garrett on 03-01-2022 Bilirubin Ql (U) Negative (03/01/22 12:03 PM) Normal Negative [facility] UA Auto SS Clarity (U) Clear (03/01/22 12:03 PM) Normal Clear [facility] UA Auto SS Color (U) Yellow (03/01/22 12:03 PM) Normal Yellow [facility] UA Auto SS Crystals LM Ql (Urine sed) Present 1 (03/01/22 12:03 PM) Normal [facility] UA Auto SS Comment on above: Result Comment: trac e Epithelial cells.squamous LM.HPF (Urine sed) [#/Area] 0-2 /HPF Normal 0-2/HPF [facility] UA Aut o SS Glucose Test strip (U) [Mass/Vol] Negative (03/01/22 12:03 PM) Normal Negative [facility] Auto SS Hemoglobin Ql (U) Trace *ABN* (03/01/22 12:03 PM) Invalid Interpretation Code Negative [facility] UA Auto SS Ketones (U) [Mass/Vol] Negative (03/01/22 12:03 PM) Normal Negative [facility] UA Auto SS [place].plasma/Lithiu m.RBC (Bld) [Mass ratio] 0-3 /HPF Normal 0-3/HPF [facility] UA Auto SS Nitrite Ql (U) Negative (03/01/22 12:03 PM) Normal Negative [facility] UA Auto SS pH (U) 6.0 *NA* (03/01/22 12:03 PM) Invalid Interpretation Code 5.0 - 9.0 [facility] UA Auto SS Protein (U) [Mass/Vol] Negative (03/01/22 12:03 PM) Normal Negative [facility] UA Auto SS Specific gravity (U) [Rel density] 1.020 *NA* (03/01/22 12:03 PM) Invalid Interpretation Code 1.005 - 1.030 [facility] UA Auto SS UA Spec Desc Clean Catch (03/01/22 12:03 PM) Normal [facility] UA Auto SS Urobilinogen Qn (U) 0.2055588 {Dilma'U}/dL Normal 0.0 - 1.0 EU/dL [facility]A Auto SS WBC Auto Ql (U) Negative (03/01/22 12:03 PM) Normal Negative [facility] UA Auto SS WBC LM.HPF (Urine sed) [#/Area] 0-5 /HPF Normal 0-5/HPF [facility] UA Auto SS CBC AUTO DIFFon 01-31-2022 BASO # 0.1 103/ul Normal 0.0-0.1 [facility] Comment on above: Performed By: #### C BC #### [facility] [address] [place] [address] Dr. Jorge Luis Galicia Basophils/100 WBC (Bld) 0.9 % Normal 0.2-2.0 [facility] Comment on above: Performed By: #### C BC #### [facility] [address] [place] [address] [id number] [address] Jorge Luis Galicia EO # 0.1 103/ul Normal 0.0-0.7 [facility] Comment on above: Performed By: #### C BC #### [facility] [address] [place] [address] Dr. Jorge Luis Galicia Eosinophils/100 WBC (Bld) 1.4 % Normal 0.9-7.0 [facility] Comment on above: Performed By: #### C BC #### [facility] [address] [place] [address] Dr. Jorge Luis Galicia Erythrocyte distribution width (RBC) [Ratio] 13.1 % Normal 11.0-15.0 [facility] Comment on above: Performed By: #### C BC #### [facility] [address] [place] [address] Dr. Jorge Luis Galicia Hematocrit (Bld) [Volume fraction] 40.0 % Critically low 42.0-54.0 [facility] Comment on above: Performed By: #### C BC #### [facility] [address] [place] [address] Dr. Jorge Luis Galicia Hemoglobin (Bld) [Mass/Vol] 13.6 g/dL Critically low 14.0-18.0 [facility] Comment on above: Performed By: #### C BC #### [facility] [address] [place] [address] Dr. Jorge Luis Galicia IG # 0.02 10e3/ul Normal 0.00-0.03 [facility] Comment on above: Performed By: #### C BC #### [facility] [address] [place] [address] Dr. Jorge Luis Galicia IG % 0.4 % Normal 0.0-0.5 [facility] Comment on above: Performed By: #### C BC #### [facility] [address] [place] [address] Dr. Jorge Luis Galicia LYMPH # 1.7 103/ul Normal 1.2-3.8 [facility] Comment on above: Performed By: #### C BC #### [facility] [address] [place] [address] Dr. Jorge Luis Galicia Lymphocytes/100 WBC (Bld) 30.3 % Normal 20.5-60.0 [facility] Comment on above: Performed By: #### C BC #### [facility] [address] [place] [address] Dr. Jorge Luis Galicia MANUAL DIFF REQ NO Normal [facility] Comment on above: Performed By: #### C BC #### [facility] [address] [place] [address] Dr. Jorge Luis Galicia MCH (RBC) [Entitic mass] 29.7 pg Normal 25.9-34.0 [facility] Comment on above: Performed By: #### C BC #### [facility] [address] [place] [address] Dr. Jorge Luis Galicia MCHC (RBC) [Mass/Vol] 34.0 g/dL Normal 29.9-35.2 [facility] Comment on above: Performed By: #### C BC #### [facility] [address] [place] [address] Dr. Jorge Luis Galicia MCV (RBC) [Entitic vol] 87.3 fL Normal 80.0-94.0 [facility] Comment on above: Performed By: #### C BC #### [facility] [address] [place] [address] Dr. Jorge Luis Galicia MONO # 0.5 103/ul Normal 0.3-0.8 [facility] Comment on above: Performed By: #### C BC #### [facility] [address] [place] [address] Dr. Jorge Luis Galicia Monocytes/100 WBC (Bld) 9.3 % Normal 1.7-12.0 [facility] Comment on above: Performed By: #### C BC #### [facility] [address] [place] [address] Dr. Jorge Luis Galicia NEUT # 3.2 103/ul Normal 1.4-6.5 [facility] Comment on above: Performed By: #### C BC #### [facility] [address] [place] [address] Dr. Jorge Luis Galicia Neutrophils/100 WBC (Bld) 57.7 % Normal 43.0-75.0 [facility] Comment on above: Performed By: #### C BC #### [facility] [address] [address] [address] Jorge Luis Galicia Platelet mean volume (Bld) [Entitic vol] 9.7 fL Normal 9.5-13.5 [facility] Comment on above: Performed By: #### C BC #### [facility] [address] [address] [address] Jorge Luis Galicia PLT 222 103/ul Normal 150-450 [facility] Comment on above: Performed By: #### C BC #### [facility] [address] [address] [address] Jorge Luis Galicia RBC 4.58 106/ul Critically low 4.70-6.10 [facility] Comment on above: Performed By: #### C BC #### [facility] [address] [address] [address] Jorge Luis Galicia WBC 5.6 103/ul Normal 4.0-11.0 [facility] Comment on above: Performed By: #### C BC #### [facility] [address] [place] [address] Dr. Jorge Luis Galicia IRON AND TIBCon 01-31-2022 % SATURATION 19.6 % Normal [facility] Comment on above: Performed By: #### F ETIBC, B12FOL #### [facility] [address] [address] [address] Jorge Luis Galicia Iron [Mass/Vol] 71.0 ug/dL Normal 65.0-175.0 [facility] Comment on above: Performed By: #### F ETIBC, B12FOL #### [facility] [address] [address] [address] Jorge Luis Galicia TIBC DIRECT 363.0 ug/dL Normal 250.0-450.0 [facility] Comment on above: Performed By: #### F ETIBC, B12FOL #### [facility] [address] [address] [address] Jorge Luis Galicia VIT B12 AND FOLATEon 022 Cobalamin (Vitamin B12) [Mass/Vol] 465.0 pg/mL Normal 193.0-986.0 [facility] Comment on above: Performed By: #### F ETIBC, B12FOL #### [facility] [address] [address] [address] Jorge Luis Galicia FOLATE 21.20 ng/mL Normal 8.60-58.90 [facility] Comment on above: Performed By: #### F ETIBC, B12FOL #### [facility] [address] [address] [address] Jorge Luis Galicia NM CARDIAC PERF STRESS/EXERC ISEon 01-18-2022 NM CARDIAC PERF STRESS/EXERCISE * * *Final Report* * * DATE OF EXAM: Jan 18 2022 3:00PM AFN 0004 - NM CARDIAC PERF STRESS/EXERCISE / PROCEDURE REASON: chest pain, referal * * * * Physician Interpretation * * * * Stress Chain Builder Report: [facility] Date of service: 01/18/2022 1:11:51 PM Supervising physician: Alexander Estrella MD PATIENT: Name: MARLO DAVIES Age: 66 years Gender: M The supervising physician was in the department and immediately available. Final PATIENT: Name: MARLO DAVIES Age: 66 years Gender: M CONCLUSIONS: 1. SPECT Perfusion Study: Normal. 2. There is no scintigraphic evidence for inducible ischemia. 3. No evidence of scarred myocardium. 4. Left ventricle is normal in size. The left ventricle systolic function is normal. 5. Right ventricle is normal in size. The right ventricle systolic function is normal. 6. This is a low risk scan. Gated Stress FBP Gated Rest FBP LVEF % 65 65 Prior Study Comparison No prior nuclear cardiology exam available for comparison. Nuclear Med Report:1-Day Tc-Tetrofosmin Gated SPECT Myocardial Perfusion with Regadenoson Stress: Myocardial perfusion imaging was performed at rest 30 minutes following the IV injection of Tc-99m tetrofosmin. The patient received 0.4 mg of regadenoson, via rapid IV push, immediately followed by Tc-99m tetrofosmin IV. Gated post stress tomographic imaging was performed 30 to 60 minutes later. See administered doses below. [facility] Date of service: 01/18/2022 1:11:51 PM Ordering Physician: AURE PIPER. Requesting Physician: Indication: Assessment for suspected CAD and CP - ECG interpretable AND able to exercise with interm/high pre-test probability Interpreting physician: Sincere Richardson MD Height: 172.72 cm BSA: 2.40 m? Weight: 119.66 kg BMI: 40.1 kg/m? Exam Type: Rest Stress Radiopharm: Tc-99m Tetrofosmin Tc-99m Tetrofosmin Dosage(mCi): 15.7 46 Stress Agent: Regadenoson 0.4mg Supply provided from [facility] Resting Blood Press: 168/102 mmHg Image Quality The overall study imaging quality was deemed to be good. FINDINGS: Left Ventricle Wall Motion: Stress IR:3D - All segments are normal. Rest IR:3D - Gated Stress FBP - Reversibility - Gated Rest FBP - Stress IR:3D Stress IR:3D Gated Stress FBP Gated Rest FBP LVEF: 65 % 65 % ED Volume: 131 ml 129 ml ES Volume: 46 ml 45 ml TID: 1.16 Perfusion Findings Stress IR:3D - Summed Score=0 All segments demonstrate normal perfusion. Rest IR:3D - Summed Score=0 All segments demonstrate normal perfusion. Stress IR:3D Rest IR:3D Summed Score=0 Summed Score=0 LEFT VENTRICLE The left ventricle is normal in size. Left ventricular systolic function is normal. Right Ventricle The right ventricle is normal in size. Right ventricle systolic function is normal. Stress Test Findings: There is no scintigraphic evidence for inducible ischemia. There is no evidence of scarring. The left ventricular cavity size is unchanged with stress. Final Stress ECG Report: [facility] Date of service: 01/18/2022 1:11:51 PM Ordering physician: AURE PIPER onboarding specialist: Marsha Sadler RN Interpreting physician: Alexander Estrella MD Patient name: MARLO DAVIES Age: 66 years Gender: M Height: 172.72 cm BSA: 2.40 m? Weight: 119.66 kg BMI: 40.1 kg/m? Indication: Encounter for screening for cardiovascular disorders Stress ECG Conclusion: Conclusion: Normal for regadenoson with exception: Resting hypertension Comments: BP at start of test 168/102 - switched to regadenoson. Prior exam comparison: No prior CC exam Stress ECG Summary: The patient's resting heart rate was 84 bpm and blood pressure was 168/102 mmHg. The test was terminated due to general fatigue. No symptoms provoked during stress. The maximum heart rate was 100 bpm, which is 66% of the predicted heart rate for age. Peak blood pressure was 140/72 mmHg. The double product achieved was [address]. Medications: Last Used AMLODIPINE Resting ECG: Normal Sinus Rhythm Symptoms at rest: No symptoms Pharamcologic Protocol: Regadenoson Stress Exercise Table: +------+ + ---+---+---+ Stage Time (min) HR SYS VENKAT +------+ + ---+---+---+ 1 1.0 96 146 82 +------+ + ---+---+---+ 2 2.0 100 140 72 +------+ + ---+---+---+ 3 3.0 95 148 80 +------+ + ---+---+---+ 4 4.0 94 136 78 +------+ + ---+---+---+ +-----+---+---+---+ (more content not included)... Normal [facility] CBC AUTO DIFFon 12-13-2021 BASO # 0.1 103/ul Normal 0.0-0.1 [facility] Comment on above: Performed By: #### C BC #### [facility] [address] [address] [address] Jorge Luis Galicia Basophils/100 WBC (Bld) 0.9 % Normal 0.2-2.0 [facility] Comment on above: Performed By: #### C BC #### [facility] [address] [address] [address] Jorge Luis Galicia EO # 0.1 103/ul Normal 0.0-0.7 [facility] Comment on above: Performed By: #### C BC #### [facility] [address] [place] [address] Dr. Jorge Luis Galicia Eosinophils/100 WBC (Bld) 1.4 % Normal 0.9-7.0 [facility] Comment on above: Performed By: #### C BC #### [facility] [address] [place] [address] Dr. Jorge Luis Galicia Erythrocyte distribution width (RBC) [Ratio] 13.2 % Normal 11.0-15.0 [facility] Comment on above: Performed By: #### C BC #### [facility] [address] [place] [address] Dr. Jorge Luis Galicia Hematocrit (Bld) [Volume fraction] 40.4 % Critically low 42.0-54.0 [facility] Comment on above: Performed By: #### C BC #### [facility] [address] [place] [address] Dr. Jorge Luis Galicia Hemoglobin (Bld) [Mass/Vol] 13.5 g/dL Critically low 14.0-18.0 [facility] Comment on above: Performed By: #### C BC #### [facility] [address] [place] [address] Dr. Jorge Luis Galicia IG # 0.02 10e3/ul Normal 0.00-0.03 [facility] Comment on above: Performed By: #### C BC #### [facility] [address] [place] [address] Dr. Jorge Luis Galicia IG % 0.3 % Normal 0.0-0.5 [facility] Comment on above: Performed By: #### C BC #### [facility] [address] [place] [address] Dr. Jorge Luis Galicia LYMPH # 1.5 103/ul Normal 1.2-3.8 [facility] Comment on above: Performed By: #### C BC #### [facility] [address] [place] [address] Dr. Jorge Luis Galicia Lymphocytes/100 WBC (Bld) 26.3 % Normal 20.5-60.0 [facility] Comment on above: Performed By: #### C BC #### [facility] [address] [place] [address] Dr. Jorge Luis Galicia MANUAL DIFF REQ NO Normal [facility] Comment on above: Performed By: #### C BC #### [facility] [address] [place] [address] Dr. Jorge Luis Galicia MCH (RBC) [Entitic mass] 30.1 pg Normal 25.9-34.0 [facility] Comment on above: Performed By: #### C BC #### [facility] [address] [place] [address] Dr. Jorge Luis Galicia MCHC (RBC) [Mass/Vol] 33.4 g/dL Normal 29.9-35.2 [facility] Comment on above: Performed By: #### C BC #### [facility] [address] [place] [address] Dr. Jorge Luis Galicia MCV (RBC) [Entitic vol] 90.0 fL Normal 80.0-94.0 [facility] Comment on above: Performed By: #### C BC #### [facility] [address] [place] [address] Dr. Jorge Luis Galicia MONO # 0.5 103/ul Normal 0.3-0.8 [facility] Comment on above: Performed By: #### C BC #### [facility] [address] [address] [address] Jorge Luis Galicia Monocytes/100 WBC (Bld) 9.2 % Normal 1.7-12.0 [facility] Comment on above: Performed By: #### C BC #### [facility] [address] [address] [address] Jorge Luis Galicia NEUT # 3.6 103/ul Normal 1.4-6.5 [facility] Comment on above: Performed By: #### C BC #### [facility] [address] [address] [address] Jorge Luis Galicia Neutrophils/100 WBC (Bld) 61.9 % Normal 43.0-75.0 [facility] Comment on above: Performed By: #### C BC #### [facility] [address] [place] [address] Dr. Jorge Luis Galicia Platelet mean volume (Bld) [Entitic vol] 9.7 fL Normal 9.5-13.5 [facility] Comment on above: Performed By: #### C BC #### [facility] [address] [address] [address] Jorge Luis Galicia PLT 170 103/ul Normal 150-450 [facility] Comment on above: Performed By: #### C BC #### [facility] [address] [place] [address] Dr. Jorge Luis Galicia RBC 4.49 106/ul Critically low 4.70-6.10 [facility] Comment on above: Performed By: #### C BC #### [facility] [address] [address] [address] Jorge Luis Galicia WBC 5.7 103/ul Normal 4.0-11.0 [facility] Comment on above: Performed By: #### C BC #### [facility] [address] [address] [address] Jorge Luis Galicia GLYCOHEMOGLOBIN A1Con 2021 ADA RECOMMENDATION SEE BELOW Normal [facility] Comment on above: Result Comment: ADA RECOMMENDED LIMIT 4.0 - 6.0 ADA THERAPEUTIC TARGET < 7.0 ACTION SUGGESTED > 7.0 Performed By: #### A 1C #### [facility] [address] [address] [address] Jorge Luis Galicia Glucose [Mass/Vol] 126 mg/dL Normal [facility] Comment on above: Performed By: #### A 1C #### [facility] [address] [address] [address] Jorge Luis Galicia HbA1c (Bld) [Mass fraction] 6.0 % Normal 4.5-6.2 [facility] Comment on above: Performed By: #### A 1C #### [facility] [address] [address] [address] Jorge Luis Galicia LIPID PROFILEon 12-13-2021 CHOL-HDL RATIO NORM SEE BELOW Normal [facility] Comment on above: Result Comment: 3.3 - 4.4 LOW RISK 4.4 - 7.1 AVERAGE RISK 7.1 - 11.0 MODERATE RISK >11.0 HIGH RISK Performed By: #### L IPID, BMP #### [facility] [address] [place] [address] Dr. Jorge Luis Galicia Cholesterol [Mass/Vol] 198 mg/dL Normal <=200 [facility] Comment on above: Performed By: #### L IPID, BMP #### [facility] [address] [place] [address] Dr. Jorge Luis Galicia Cholesterol in HDL [Mass/Vol] 62 mg/dL Critically high 40-60 [facility] Comment on above: Performed By: #### L IPID, BMP #### [facility] [address] [address] [address] Jorge Luis Galicia Cholesterol in LDL [Mass/Vol] 110.6 mg/dL Normal [facility] Comment on above: Performed By: #### L IPID, BMP #### [facility] [address] [address] [address] Jorge Luis Galicia Cholesterol.total/Cho lesterol in HDL [Mass ratio] 3.2 {ratio} Normal [facility] Comment on above: Performed By: #### L IPID, BMP #### [facility] [address] [address] [address] Jorge Luis Galicia HDL NORMAL > or = 60 mg/dl - LOW CARDIOVASCULAR RISK <40 mg/dl - HIGH CARDIOVASCULAR RISK Normal [facility] Comment on above: Performed By: #### L IPID, BMP #### [facility] [address] [address] [address] Jorge Luis Galicia LDL CALC NORMAL SEE BELOW Normal [facility] Comment on above: Result Comment: <100 mg/dl OPTIMAL 100 - 129 mg/dl NEAR OR ABOVE OPTIMAL 130 - 159 mg/dl BORDERLINE HIGH 160 - 189 mg/dl HIGH >190 mg/dl VERY HIGH Performed By: #### L IPID, BMP #### [facility] [address] [place] [address] Dr. Jorge Luis Galicia Triglyceride [Mass/Vol] 127 mg/dL Normal <=150 [facility] Comment on above: Performed By: #### L IPID, BMP #### [facility] [address] [address] [address] Jorge Luis Galicia VLDL CALC 25.4 mg/dL Normal [facility] Comment on above: Performed By: #### L IPID, BMP #### [facility] [address] [place] [address] Dr. Jorge Luis Galicia PROF CHEM 8 (BAS METB)on Anion gap [Moles/Vol] 11.5 mmol/L Normal [facility] Comment on above: Performed By: #### L IPID, BMP #### [facility] [address] [address] [address] Jorge Luis Galicia Calcium [Mass/Vol] 8.9 mg/dL Normal 8.5-10.1 [facility] Comment on above: Performed By: #### L IPID, BMP #### [facility] [address] [place] [address] Dr. Jorge Luis Galicia Chloride [Moles/Vol] 102 mmol/L Normal 98-107 [facility] Comment on above: Performed By: #### L IPID, BMP #### [facility] [address] [place] [address] Dr. Jorge Luis Galicia CO2 [Moles/Vol] 29.5 mmol/L Normal 21.0-32.0 [facility] Comment on above: Performed By: #### L IPID, BMP #### [facility] [address] [address] [address] Jorge Luis Galicia Creatinine [Mass/Vol] 0.98 mg/dL Normal 0.70-1.30 [facility] Comment on above: Performed By: #### L IPID, BMP #### [facility] [address] [address] [address] Jorge Luis Galicia EGFR-AF FINNISH >60 Normal >=60 [facility] Comment on above: Performed By: #### L IPID, BMP #### [facility] [address] [place] [address] Dr. Jorge Luis Galicia EGFR-NON AF FINNISH >60 Normal >=60 [facility] Comment on above: Performed By: #### L IPID, BMP #### [facility] [address] [address] [address] Jorge Luis Galicia Glucose [Mass/Vol] 113 mg/dL Critically high 74-106 [facility] Comment on above: Performed By: #### L IPID, BMP #### [facility] [address] [place] [address] Dr. Jorge Luis Galicia Potassium [Moles/Vol] 4.0 mmol/L Normal 3.5-5.1 [facility] Comment on above: Performed By: #### L IPID, BMP #### [facility] [address] [address] [address] Jorge Luis Galicia Sodium [Moles/Vol] 139 mmol/L Normal 136-145 [facility] Comment on above: Performed By: #### L IPID, BMP #### [facility] [address] [address] [address] Jorge Luis Galicia Urea nitrogen [Mass/Vol] 21.0 mg/dL Critically high 7.0-18.0 [facility] Comment on above: Performed By: #### L IPID, BMP #### [facility] [address] [place] [address] Dr. Jorge Luis Galicia Urea nitrogen/Creatinine [Mass ratio] 21.4 mg/mg Normal [facility] Comment on above: Performed By: #### L IPID, BMP #### [facility] [address] [address] [address] Jorge Luis Galicia ALLIED HEALTHon 08-13-2018 ALLIED HEALTH HNO ID: [id number] Author: Velasquez Daley Service: Radiology Author Type: ? Type: Allied Health Filed: 08/13/2018 9:02 AM Note Text: Radiology Service Progress Note PATIENT NAME: Marlo Davies DATE OF SERVICE: August 13, 2018 TIME: 9:02 AM PATIENT IDENTITY VERIFICATION COMPLETED USING TWO (2) METHODS: Patient confirmed name verbally and ID band matches.. PATIENT GENDER DATA: Male PATIENT RELEVANT IMPLANT DATA REVIEWED: Yes RADIOLOGY DEPARTMENT: MR; Exam(s) Completed: Lower MSK: Knee, right PERIPHERAL IV DATA: Not applicable SIGNED BY: Velasquez Daley August 13, 2018 9:02 AM [facility] MRI KNEE WO IVCON RTon 08-13 MRI KNEE WO IVCON RT * * *Final Report* * * DATE OF EXAM: Aug 13 2018 9:27AM MMM 0213 - MRI KNEE WO IVCON RT / PROCEDURE REASON: multiple diagnoses * * * * Physician Interpretation * * * * MRI KNEE WO IVCON RT HISTORY: Chronic pain of right knee Chronic pain of right knee COMPARISON: 07/22/2018 right knee x-rays TECHNIQUE: Multiplanar PD, T1 and T2 weighted images. RESULT: Medial meniscus: Complex tear of the posterior horn and body reaching both articular surfaces. Lateral meniscus: Intact and within normal limits for age. ACL: Intact. PCL: Intact. MCL: Intact. LCL complex: Intact. Patellofemoral extensor mechanism: Within normal limits. Bone/bone Marrow: No fractures or marrow replacing lesions. Articulations: Medial: Within normal limits. Lateral: Within normal limits. Patellofemoral: Degenerative arthrosis with irregular partial thickness cartilage loss and joint line osteophytes. Joint fluid: Small knee joint effusion. No popliteal cyst. Subcutaneous space: Anterior subcutaneous edema. IMPRESSION: Complex tear of the medial meniscus. Patellofemoral arthrosis. Small effusion. Flumer: MARQUEZ Transcribe Date/Time: Aug 13 2018 1:38P Dictated by : ADI TRAVIS MD This examination was interpreted and the report reviewed and electronically signed by: ADI TRAVIS MD on Aug 13 2018 1:40PM EST [id number] [facility] Vital Signs Date Time Vital Sign Value Performing Clinician Facility 12-18-2023 08:33-0400 Body height 172.72 cm [facility] 12-18-2023 08:33-0400 Body mass index (BMI) [Ratio] 39.8 kg/m2 [facility] 12-18-2023 08:33-0400 Body weight 118.89 kg [facility] 12-18-2023 08:33-0400 Diastolic blood pressure 75 mm[Hg] [facility] 12-18-2023 08:33-0400 Heart rate 86 /min [facility] 12-18-2023 08:33-0400 Respiratory rate 12 /min [facility] 12-18-2023 08:33-0400 Systolic blood pressure 115 mm[Hg] [facility] 09-27-2023 11:37-0400 Body height 172.72 cm [facility] 09-27-2023 11:37-0400 Body mass index (BMI) [Ratio] 39.2 kg/m2 [facility] 09-27-2023 11:37-0400 Body weight 117.02 kg [facility] 05-23-2023 08:35-0400 Blood Pressure Location Lorenzo CHAU [facility] 05-23-2023 08:35-0400 Body temperature 97.16 [degF] Lorenzo CHAU [facility] 05-23-2023 08:35-0400 Diastolic blood pressure 94 mm[Hg] Lorenzo CHAU [facility] 05-23-2023 08:35-0400 Heart rate 79 /min Lorenzo CHAU [facility] 05-23-2023 08:35-0400 Respiratory rate 16 /min Lorenzo CHAU [facility] 05-23-2023 08:35-0400 Systolic blood pressure 132 mm[Hg] Lorenzo CHAU [facility] 01-02-2023 11:27-0500 Blood Pressure Location Lorenzo CHAU [facility] 01-02-2023 11:27-0500 Diastolic blood pressure 88 mm[Hg] Lorenzo CHAU [facility] 01-02-2023 11:27-0500 Systolic blood pressure 144 mm[Hg] Lorenzo CHAU [facility] 12-13-2022 13:30-0400 Body height 172.72 cm Jairo Ball Other [employer] Other 12-13-2022 13:30-0400 Body mass index (BMI) [Ratio] 40.05 kg/m2 Jairo Ball Other [employer] Other 12-13-2022 13:30-0400 Body weight 119.48 kg Jairo Ball Other [employer] Other 12-13-2022 13:30-0400 Diastolic blood pressure 67 mm[Hg] Jairo Ball Other [employer] Other 12-13-2022 13:30-0400 Respiratory rate 12 /min Jairo Ball Other [employer] Other 12-13-2022 13:30-0400 Systolic blood pressure 105 mm[Hg] Jairo Ball Other [employer] Other 03-17-2022 09:06-0500 Body height 172.7 cm Aure Piper MD Work Phone: [facility] 03-17-2022 09:06-0500 Body weight 121.11 kg Aure Piper MD Work Phone: [facility] 03-17-2022 09:06-0500 Diastolic blood pressure 80 mm[Hg] Aure Piper MD Work Phone: [facility] 03-17-2022 09:06-0500 Heart rate 84 /min Aure Piper MD Work Phone: [facility] 03-17-2022 09:06-0500 Systolic blood pressure 136 mm[Hg] Aure Piper MD Work Phone: [facility] 03-16-2022 09:30-0500 Body height 172.72 cm Jairo Ball Other [facility] [employer] Other 03-16-2022 09:30-0500 Body mass index (BMI) [Ratio] 41.38 kg/m2 Jairo Ball Other [facility] [employer] Other 03-16-2022 09:30-0500 Body temperature 97.8 [degF] Jairo Ball Other [employer] Other 03-16-2022 09:30-0500 Body weight 123.47 kg Jairo Ball Other [employer] Other 03-16-2022 09:30-0500 Diastolic blood pressure 84 mm[Hg] Jairo Ball Other [employer] Other 03-16-2022 09:30-0500 SaO2% (BldA) [Mass fraction] 98 % Jairo Ball Other [employer] Other 03-16-2022 09:30-0500 Systolic blood pressure 138 mm[Hg] Jairo Ball Other [employer] Other 03-01-2022 08:09-0500 Blood Pressure Location Wesleyniko Fredo [facility] 03-01-2022 08:09-0500 Diastolic blood pressure 84 mm[Hg] Barney Mayess [facility] 03-01-2022 08:09-0500 Heart rate 80 /min Barney Fredo [facility] 03-01-2022 08:09-0500 Systolic blood pressure 166 mm[Hg] Barney Mayess [facility] 02-22-2021 09:30-0500 Body height 172.72 cm Eric Rose Other [employer] Other 02-22-2021 09:30-0500 Body mass index (BMI) [Ratio] 40.29 kg/m2 Eric Rose Other [employer] Other 02-22-2021 09:30-0500 Body temperature 96.2 [degF] Eric Rose Other [employer] Other 02-22-2021 09:30-0500 Body weight 120.2 kg Eric Rose Other [employer] Other 02-22-2021 09:30-0500 Diastolic blood pressure 84 mm[Hg] Eric Rose Other [employer] Other 02-22-2021 09:30-0500 SaO2% (BldA) [Mass fraction] 98 % Eric Rose Other [employer] Other 02-22-2021 09:30-0500 Systolic blood pressure 167 mm[Hg] Eric Rose Other [employer] Other Encounters Encounter Date Encounter Type Care Provider Facility Start: 02-01-2024 ambulatory Lorenzo Bianca CHAU Facili ty:[id number] Start: 12-18-2023 End: 12-18-2023 ambulatory [facility] Work Phone: Start: 12-18-2023 End: 12-18-2023 Patient encounter procedure [facility] Work Phone: Start: 12-14-2023 Patient encounter procedure [facility] Start: 09-27-2023 End: 09-27-2023 ambulatory [facility] Work Phone: Start: 09-27-2023 End: 09-27-2023 Patient encounter procedure [facility] Work Phone: Start: 05-23-2023 End: 05-24-2023 ambulatory Lorenzo CHAU Facility: [facility] Start: 05-23-2023 End: 05-23-2023 Patient encounter procedure Lorenzo CHAU [facility] Start: 03-20-2023 End: 03-20-2023 ambulatory Jairo Abhi Facility:[facility] Start: 03-20-2023 End: 03-20-2023 ambulatory DO Jairo Ball Work Phone: [facility] Work Phone: Start: 03-20-2023 End: 03-20-2023 Patient encounter procedure DO Jairo Ball Work Phone: [facility] Work Phone: Start: 03-07-2023 End: 03-07-2023 ambulatory Jairo Ball Other [employer] Other Start: 03-07-2023 Telephone encounter Jairo Moe [facility] Start: 03-06-2023 End: 03-06-2023 ambulatory Jairo Ball Other [employer] Other Start: 03-06-2023 Telephone encounter [facility] Start: 02-27-2023 End: 02-27-2023 ambulatory Jairo Moe Other [employer] Other Start: 02-27-2023 Telephone encounter Jairo Moe [facility] Start: 02-22-2023 End: 02-22-2023 Patient encounter procedure DO Jairo Moe Work Phone: [facility] Work Phone: Start: 01-10-2023 End: 01-10-2023 ambulatory Jairo Moe Other [employer] Other Start: 01-10-2023 Telephone encounter [facility] Start: 01-08-2023 Telephone encounter [facility] Start: 01-08-2023 End: 01-09-2023 ambulatory Lorenzo CHAU [facility] [employer] Other Start: 01-08-2023 End: 01-08-2023 Patient encounter procedure Lorenzo CHAU [facility] Start: 01-05-2023 End: 01-06-2023 ambulatory Lorenzo CHAU Facility::[id number] Start: 01-02-2023 End: 01-03-2023 ambulatory Lorenzo CHAU Facility:[facility] Start: 01-02-2023 End: 01-02-2023 Lab Drop off Lorenzo CHAU [facility] Start: 01-02-2023 End: 01-03-2023 ambulatory JAIRO MOE Facility:[facility] Start: 01-02-2023 End: 01-02-2023 Patient encounter procedure [facility] Start: 12-14-2022 End: 12-14-2022 ambulatory Jairo Moe Other [employer] Other Start: 12-14-2022 Telephone encounter Jairo DUKES [facility] Start: 12-13-2022 End: 12-13-2022 ambulatory Jairo Moe Other [employer] Other Start: 12-13-2022 Patient encounter procedure Jairo Moe [facility] Start: 11-16-2022 End: 11-16-2022 ambulatory Jairo Moe Other [employer] Other Start: 11-16-2022 Telephone encounter Jairo DUKES [facility] Start: 08-14-2022 End: 08-14-2022 ambulatory Jairo Moe Other [employer] Other Start: 08-14-2022 Telephone encounter Jairo DUKES [facility] Start: 03-17-2022 End: 03-17-2022 ambulatory AURE PIPER Facility:[facility] Start: 03-17-2022 End: 03-17-2022 Patient encounter procedure Aure Piper MD Work Phone: Cardiology Comment on above: Dyspnea on exertion (Primary Dx); Morbid obesity with BMI of 40.0-44.9, adult (HCC) Start: 03-16-2022 End: 03-16-2022 ambulatory Jairo Moe Other [employer] Other Start: 03-16-2022 Office outpatient vi sit 25 minutes Jairo Moe [facility] Start: 03-01-2022 End: 03-01-2022 Lab Drop off Barney Yoo [facility] Start: 03-01-2022 End: 03-01-2022 Patient encounter procedure Barney Yoo [facility] Start: 01-31-2022 End: 02-01-[address] JAIRO MOE Facility:[facility] Start: 01-18-2022 End: 01-18-2022 ambulatory AURE PIPER Facility:[facility] Start: 01-18-2022 End: 01-18-2022 ambulatory AURE PIPER Facility:[facility] Start: 01-18-2022 End: 01-18-2022 Subsequent hospital visit by physician Scan [facility] Work Phone: Nuclear Medicine Comment on above: Other chest pain [R0 7.89] Start: 12-13-2021 End: 12-14-[address] JAIRO MOE Facility:[facility] Start: 02-22-2021 End: 02-22-2021 ambulatory Eric Rose Other [employer] Other Start: 02-22-2021 Office outpatient vi sit 25 minutes Eric [facility] Procedures Date Procedure Procedure Detail Performing Clinician Start: 01-05-2023 Cystourethroscopy wi th dilation of urethral stricture Lorenzo MANJINDER Start: 12-13-[address] BROWN IN [place] Comment on above: Performed By: #### [facility] #### [facility] [address] [place] [address] Dr. Jorge Luis mckeon Plan of Treatment Date Care Activity Detail Author Start: 11-19-2030 Urine microalbumin profile DTaP,Tdap,Td Vaccine (3 - Td or Tdap) [facility] Start: 12-13-2026 PROSTATE CANCER SCREENING DISCUSSION PROSTATE CANCER SCREENING DISCUSSION [facility] Start: 10-20-2022 Covid-19 Vaccine () Covid-19 Vaccine () [facility] Start: 10-20-2022 Influenza vaccination Influenza Vaccine (#1) [facility] Start: 02-19-2022 ADVANCE DIRECTIVE DISCUSSION ADVANCE DIRECTIVE DISCUSSION [facility] Start: 02-19-2022 DEPRESSION ASSESSMENT DEPRESSION ASSESSMENT [facility] Start: 10-20-2021 Influenza vaccination INFLUENZA (#1) [facility] Start: 08-27-2020 COVID-19 VACCINE (4 - Booster for Shey series) COVID-19 VACCINE (4 - Booster for Shey series) [facility] Start: 2018 Pneumococcal Vaccine: 65+ (1 - PCV) Pneumococcal Vaccine: 65+ (1 - PCV) [facility] Start: 2018 PNEUMOCOCCAL: 65+ (1 - PCV) PNEUMOCOCCAL: 65+ (1 - PCV) [facility] Start: 2013 RSV Vaccine (1 - 1-dose 60+ series) RSV Vaccine (1 - 1-dose 60+ series) [facility] Start: 12-05-2003 SHINGRIX VACCINE (1 of 2) SHINGRIX VACCINE (1 of 2) [facility] Start: 1998 COLOGUARD (FIT-DNA) COLOGUARD (FIT-DNA) [facility] Start: 1998 Colonoscopy COLONOSCOPY [facility] Start: 1998 COLORECTAL CANCER SCREENING COLORECTAL CANCER SCREENING [facility] Start: [address] COLONOGRAPHY [facility] Start: 1998 DIABETES SCREEN DIABETES SCREEN [facility] Start: 1998 Diabetes Screening Diabetes Screening [facility] Start: 1998 FECAL OCCULT BLOOD FECAL OCCULT BLOOD [facility] Start: 1998 SIGMOIDOSCOPY SIGMOIDOSCOPY [facility] Start: 1988 Lipid 1996 panel - Serum or Plasma Lipid Screening [facility] Start: 1988 LIPID SCREEN LIPID SCREEN [facility] Start: 1972 Urine microalbumin profile DTAP,TDAP,TD (1 - Tdap) [facility] Start: 12-05-1971 HEPATITIS C SCREENING HEPATITIS C SCREENING [facility] Comprehensive metabo lic 2000 panel - Serum or Plasma [facility] Immunizations Immunization Date Immunization Notes Care Provider Fa cilishira 11-19-2020 tetanus and diphther ia toxoids, adsorbed, preservative free, for adult use (5 Lf of tetanus toxoid and 2 Lf of diphtheria toxoid) Jairo Moe Other [facility] 11-19-2020 tetanus toxoid, redu gary diphtheria toxoid, and acellular pertussis vaccine, adsorbed Barney Yoo [facility] 07-02-2020 SARS-CoV-2 (COVID-19 ) mRNA-1273 [facility] 06-04-2020 SARS-CoV-2 (COVID-19 ) mRNA-1273 vaccine Pending Sale To [facility] 04-30-2020 SARS-CoV-2 (COVID-19 ) Ad26 vaccine, recombinant Pending Sale To [facility] 04-09-2020 SARS-CoV-2 (COVID-19 ) Ad26 vaccine, recombinant Pending Sale To [facility] 12-09-2019 pneumococcal polysaccharide vaccine, 23 valent Jairo Ball Other [facility] 11-08-2011 tetanus toxoid, redu gary diphtheria toxoid, and acellular pertussis vaccine, adsorbed Eric Rose Other [facility] Payers Date Payer Category Payer Self-pay [id number] 2019 Unknown MMO MMO MEDICARE SUPPLEMENT [id number] 2019-Present [phone] [address] [place] [address] Indemnity [id number] 2018 Medicare MEDICARE MEDICAR E A AND B [id number] 2018-Present [phone] [address] [address] [place] [address] Medicare [id number] 1959 Medicare [id number] 1959 Unknown [id number] 1953 Unknown [id number] 1953 Unknown [id number] 1953 Unknown [id number] 1953 Unknown [id number] 1953 Unknown [id number] 1953 Unknown [id number] 1953 Unknown [id number] Unknown [facility] [id number] Unknown [id number] Social History Date Type Detail Facility Start: 01-27-2020 End: 09-29-2020 Sex Assigned At [facility] Start: 01-15-2020 End: 03-01-2022 Tobacco smoking status Never smoked tobacco (finding) [facility] Tobacco smoking status Never [facility] Start: 11-02-2017 Tobacco use and exposure Smokeless tobacco non-user [facility] Start: 1955 Sex Assigned At Not on file [facility] Start: 01-27-2020 End: 09-29-2020 History of Social function [facility] Start: 01-08-2022 End: 01-18-2022 Exposure to SARS-CoV-2 (event) Not sure [facility] Work Phone: Start: 1955 Sex Assigned At Male F [facility] Functional Status Date Assessment Result Facility 05-23-2023 Functional Status N/A [facility] 01-02-2023 Functional Status N/A [facility] 03-01-2022 Functional Status N/A [facility] Clinical Notes 02-22-2021 to 05-23-2023 Note Date & Type Note Facility 05-23-2023 Evaluation + Plan note Diagnostic Tests PendingPSA Screen, Total 05/23/23 [facility] 05-23-2023 Hospital Discharg e instructions Patient Education 05/23/2023 09:19:23 Urethral Stricture Urethral Stricture Urethral stricture is narrowing of the tube (urethra) that carries urine from the bladder out of the body. The urethra can become narrow due to scar tissue from an injury or infection. This can make it difficult to pass urine. In women, the urethra opens above the vaginal opening. In men, the urethra opens at the tip of the penis, and the urethra is much longer than it is in women. Because of the length of the male urethra, urethral stricture is much more common in men. This condition is treated with surgery. What are the causes? In both men and women, common causes of urethral stricture include: Urinary tract infection (UTI). Sexually transmitted infection (STI). Use of a tube placed into the urethra to drain urine from the bladder (urinary catheter). Urinary tract surgery. In men, common causes of urethral stricture include: A severe injury to the pelvis. Prostate surgery. Injury to the penis. In many cases, the cause of urethral stricture is not known. What increases the risk? You are more likely to develop this condition if you: Are male. Men who have had prostate surgery are at risk of developing this condition. Use a urinary catheter. Have had urinary tract surgery. What are the signs or symptoms? The main symptom of this condition is difficulty passing urine. This may cause decreased urine flow, dribbling, or spraying of urine. Other symptom of this condition may include: Frequent UTIs. Blood in the urine. Pain when urinating. Swelling of the penis in men. Inability to pass urine (urinary obstruction). How is this diagnosed? This condition may be diagnosed based on: Your medical history and a physical exam. Urine tests to check for infection or bleeding. X-rays. Ultrasound. Retrograde urethrogram. This is a type of test in which dye is injected into the urethra and then an X-ray is taken. Urethroscopy. This is when a thin tube with a light and camera on the end (urethroscope) is used to look at the urethra. How is this treated? This condition is treated with surgery. The type of surgery that you have depends on the severity of your condition. You may have: Urethral dilation. In this procedure, the narrow part of the urethra is stretched open (dilated) with dilating instruments or a small balloon. Urethrotomy. In this procedure, a urethroscope is placed into the urethra, and the narrow part of the urethra is cut open with a surgical blade inserted through the urethroscope. Open surgery. In this procedure, an incision is made in the urethra, the narrow part is removed, and the urethra is reconstructed. Follow these instructions at home: Take [id number] and prescription medicines only as told by your health care provider. If you were prescribed an antibiotic medicine, take it as told by your health care provider. Do not stop taking the antibiotic even if you start to feel better. Drink enough fluid to keep your urine pale yellow. Keep all follow-up visits as told by your health care provider. This is important. Contact a health care provider if: You have signs of a urinary tract infection, such as: ?Frequent urination or passing small amounts of urine frequently. ?Needing to urinate urgently. ?Pain or burning with urination. ?Urine that smells bad or unusual. ?Cloudy urine. ?Pain in the lower abdomen or back. ?Trouble urinating. ?Blood in the urine. ?Vomiting or being less hungry than normal. ?Diarrhea or abdominal pain. ?Vaginal discharge, if you are female. Your symptoms are getting worse instead of better. Get help right away if: You cannot pass urine. You have a fever. You have swelling, bruising, or discoloration of your genital area. This includes the penis, scrotum, and inner thighs for men, and the outer genital organs (vulva) and inner thighs for women. You develop swelling in your legs. You have difficulty breathing. Summary Urethral stricture is narrowing of the tube (urethra) that carries urine from the bladder out of the body. The urethra can become narrow due to scar tissue from an injury or infection. This condition can make it difficult to pass urine. This condition is treated with surgery. The type of surgery that you have depends on the severity of your condition. Contact a health care provider if your symptoms get worse or you have signs of a urinary tract infection. This information is not intended to replace advice given to you by your health care provider. Make sure you discuss any questions you have with your health care provider. Document Revised: 12/13/2021 Document Reviewed: 12/13/2021 [employer] Patient Education 2022 [employer]. Follow Up Care 01/22/2023 12:42:55 With:MANJINDER LYLES, Lorenzo Valenzuela, URL Address: [facility] [address], [place] [address]- When: Unknown [facility] 03-06-2023 Evaluation note Encounter Date Diagnosis Assessment Notes Feb, Iron deficiency anemia due to chronic blood loss (ICD-10 - D50.0) [employer] Other 01-09-2024 Evaluation note* Encounter Date Diagnosis Assessment Notes Treatment Notes Treatment Clinical Notes Feb, Anemia (ICD-10 - D64.9) [facility] [place] [facility] Other 11-14-2023 Evaluation + Plan note Diagnostic Tests Pending * [facility] Fish [facility] Urine Cyto ([facility]) 01/02/23 [facility]10-25-2023 Evaluation note* Encounter Date Diagnosis Assessment Notes Treatment Notes Treatment Clinical Notes Nov, Medicare annual wellness visit, subsequent (ICD-10 - Z00.00) Personalized health advice was given to the beneficiary including a written plan for screenings discussed and provided. Advanced care planning reviewed and/or information given as requested. Additional counseling was provided here today in regards to, [ ]. The above visit was performed by [ ], under direct supervision of [ ]. Document reviewed and amended by provider signed below. Nov, IFG (impaired fasting glucose) (ICD-10 - R73.01) Healthy diet and exercise Weight loss encouraged. A1C yearly Nov, Hypertension (ICD-10 - I10) This patient is instructed to consume a healthy, low-fat, low-salt diet. They are also encouraged to continue exercise to achieve/maintain a normal BMI. Nov, Bleeding from urethra in male (ICD-10 - N36.8) Recurrent bleeding Occasionally will have urgency and hesitancy but resolves w/o treatment CT abdomen/pelvis and cystoscopy completed last year. Recommend referral back to Urology Nov, Chronic venous insufficiency (ICD-10 - I87.2) Avoid salt and elevate lower extremities, support stockings, inspect legs and feet daily for blisters and ulcerations. Nov, Benign prostatic hyperplasia with lower urinary tract symptoms (ICD-10 - N40.1) Symptoms tolerable. Nov, Nocturia (ICD-10 - R35.1) Nov, Screening PSA (prostate specific antigen) (ICD-10 - Z12.5) Yearly FARAZ and PSA Nov, Acute bronchitis due to other specified organisms (ICD-10 - J20.8) Instructed to use Robitussin or Mucinex for cough, saline or Flonase NS for congestion, Tylenol for pain and fever. [employer] Other 01-27-2023 NoteHNO ID: [id number] Author: Aure Piper MD Service: ? Author Type: Physician Type: Progress Notes Filed: 03/17/2022 9:46 AM Note Text: SUBJECTIVE: Marlo Davies is a 66 year old male. Patient presents with: New Patient Marlo Davies was referred by Aure Piper HPI: The patient is an extremely pleasant, 66-year-old gentleman, who underwent provocative nuclear testing, December 2021, after describing exertional dyspnea to his primary care physician. The stress test revealed no evidence for inducible ischemia or previous myocardial scarring, with preserved left and right ventricular size and systolic function and normal ejection fraction. CARDIAC HISTORY: SYMPTOMS: Chest pain/discomfort: No, Palpitations:No, Arrhythmia: No Dyspnea: Yes, Dyspnea at rest: No, Nocturnal dyspnea: Yes Orthopnea: No, Diaphoresis: No, Dizziness: No, Syncope: No, Edema: Yes, Nocturia: Yes, Impaired exercise tolerance: Yes, Claudication:No CONDITIONS: Hypertension: Yes, Heart failure:No, [place] [employer] Functional Classification: Class I, Atrial fibrillation:No, History of myocardial infarction/angina: No, History of CABG/PCI:No, Valvular heart disease: No, Cardiomyopathy: No, Aortic diseases: No, Peripheral vascular disease: No, History of cerebrovascular accident: No, History of pulmonary embolism No, History of DVT No. History of rheumatic fever: No, History of transient ischemic attacks: No, Congenital heart disease: No, Pericarditis: No, Pericardial Effusion: No, Coronary Calcium: No, Pulmonary HTN: No CORONARY RISK FACTORS: Family history of coronary artery disease Yes: Family history CAD in a first degree relative father Premature onset: No, Tobacco use No: Remote, Sedentary lifestyle Yes, Hypertension Yes, Hyperlipidemia No, Diabetes mellitus No, Obesity Yes, Peripheral vascular disease No. HISTORIES: No family history on file. No past medical history on file. No past surgical history on file. 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Bulder ALLERGIES No Known Allergies REVIEW OF SYSTEMS: Constitutional: Fatigue: No, Weight loss: No, Weight gain: No, Fever: No, Chills: No Eyes: Blurred or Reduced Vision:No Ears: Hearing Loss:No Nose,Throat: Epistaxis:No, Bleeding gums:No Respiratory: Dyspnea:Yes, Cough:No, Hemoptysis:No, Wheezing:No, Pleuritic pain:No, Sleep Apnea:No, COPD:No, Asthma:No Gastrointestinal: Hematemesis:No, Blood in stool:No, Abdominal pain:No, Nausea and/or vomiting:No Genitourinary: Dysuria:No, Hematuria:No, Renal insufficiency:No, Pregnancies:No, BPH:No, Erectile Dysfunction:No Hematologic: Anemia:No, Bruises easily:No, Bleeds easily:No History of Cancer: No Musculoskeletal: Muscle pain:No, Arthritis/Arthralgia:No Skin: Rash:No, Pruritus:No Neurologic: Headache:No, Dizziness:No, Seizures:No, Dementia:No Psychiatric: Anxiety:No, Depression:No, Over the past 2 weeks have you felt down, depressed or hopeless?:No, Over the past 2 weeks have you felt little interest or pleasure in doing things?:No Endocrine: Polyphagia:No, Polydipsia:No, Polyuria:No, Goiter:No, Hyper/hypothyroidism:No, Dyslipidemia:No Allergic, Immunology: Urticaria:No, Collagen vascular disease:No Other: The rest of the review of systems is unremarkable and negative or non-contributory. OBJECTIVE: VITALS: BP 136/80 Pulse 84 Ht 5' 8 (1.73m) Wt 267 lb (121.1kg) BMI 40.61 kg/(m2). PHYSICAL EXAMINATION: GENERAL APPEARANCE: Appears Healthy:Yes, Obese:Yes, Acute distress:No, Appearance consistent with age:Yes, Responds appropriately: Yes MENTAL STATUS: Alert:Yes, Cooperative:Yes, Pleasant:Yes, Affect: normal EYES: Conjunctiva/corneas normal:Yes, PERRL:Yes, Scleral icterus:No, Xanthelasma:No HEAD, NECK: Good oral hygiene:Yes, Oral mucosa normal:Yes, Jugular venous distention:No, Hepatojugular reflux:No, Thyromegaly:No, Carotid endarterectomy:No,Thyroidectomy :No RESPIRATORY:Chest movement symmetrical:Yes, Respiratory effort normal:Yes, Percussion of chest normal:Yes, Breath sounds normal:Yes, Crackles:No, Rales:No, Rhonchi:No, Wheezing:No, Pleural friction rub:No, Evidence of pacemaker/ICD:No, Median sternotomy scar:No, Sternal instability:No CARDIAC: Snowshoe beat not localized, Cardiac thrill:No, Heart rate normal:Yes, Heart rhythm normal:Yes, S1 normal:Yes, S2 normal:Yes, S3 ausculated:No, S4 ausculated:No, Gallop ausculated:No, Heart murmur:No, Prosthetic valve click:No, Pericardial friction rub:No ABDOMINAL:Abdomen soft, non-tender. BS normal. No masses or organomegaly. and positive findings: Morbid obese VASCULAR/EXTREMITIES:Radial pulse normal:Yes, Carotid pulse normal:Yes, Carotid bruit:No, Abdominal aorta palpable:No, Abdominal aortic bruit:No, Femoral pulse normal:Yes, Femoral bruit:No, Dorsalis pedis pulse present:Yes, Posterior tibial pulse present:Yes, Popliteal pulse:Yes, Beau (more content not included)...[facility]01-27-[facility] History of Present illness Narrative* Aure Piper MD - 03/17/2022 9:38 AM EST SUBJECTIVE: Marlo Davies is a 66 year old male. Patient presents with: New Patient Marlo Davies was referred by Aure Piper HPI: The patient is an extremely pleasant, 66-year-old gentleman, who underwent provocative nucleartesting, December 2021, after describing exertional dyspnea to his primary care physician. The stress test revealed no evidence for inducible ischemia or previous myocardial scarring, with preserved left and right ventricular size and systolic function and normal ejection fraction. CARDIAC HISTORY: SYMPTOMS: Chest pain/discomfort: No, Palpitations:No, Arrhythmia: No Dyspnea: Yes, Dyspnea at rest: No, Nocturnal dyspnea: Yes Orthopnea: No, Diaphoresis: No, Dizziness: No, Syncope: No, Edema: Yes, Nocturia: Yes, Impaired exercise tolerance: Yes, Claudication:No CONDITIONS: Hypertension: Yes, Heart failure:No, [place] Heart Association Functional Classification: Class I,Atrial fibrillation:No, History of myocardial infarction/angina: No, History of CABG/PCI:No, Valvular heart disease: No, Cardiomyopathy: No, Aortic diseases: No, Peripheral vascular disease: No, Histo ry of cerebrovascular accident: No, History of pulmonary embolism No, History of DVT No. History ofrheumatic fever: No, History of transient ischemic attacks: No, Congenital heart disease: No, Pericarditis: No, Pericardial Effusion: No, Coronary Calcium: No, Pulmonary HTN: No CORONARY RISK FACTORS: Family history of coronary artery disease Yes: Family history CAD in a first degree relative fatherPremature onset: No, Tobacco use No: Remote, Sedentary lifestyle Yes, Hypertension Yes, Hyperlipidemia No, Diabetes mellitus No, Obesity Yes, Peripheral vascular disease No. HISTORIES: No family history on file. No past medical history on file. No past surgical history on file. 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Bulder ALLERGIES No Known Allergies REVIEW OF SYSTEMS: Constitutional: Fatigue: No, Weight loss: No, Weight gain: No, Fever: No, Chills: No Eyes: Blurred or Reduced Vision:No Ears: Hearing Loss:No Nose,Throat: Epistaxis:No, Bleeding gums:No Respiratory: Dyspnea:Yes, Cough:No, Hemoptysis:No, Wheezing:No, Pleuritic pain:No, Sleep Apnea:No, COPD:No, Asthma:No Gastrointestinal: Hematemesis:No, Blood in stool:No, Abdominal pain:No, Nausea and/or vomiting:No Genitourinary: Dysuria:No, Hematuria:No, Renal insufficiency:No, Pregnancies:No, BPH:No, Erectile Dysfunction:No Hematologic: Anemia:No, Bruises easily:No, Bleeds easily:No History of Cancer: No Musculoskeletal: Muscle pain:No, Arthritis/Arthralgia:No Skin: Rash:No, Pruritus:No Neurologic: Headache:No, Dizziness:No, Seizures:No, Dementia:No Psychiatric: Anxiety:No, Depression:No, Over the past 2 weeks have you felt down, depressed or hopeless?:No, Over the past 2 weeks have you felt little interest or pleasure in doing things?:No Endocrine: Polyphagia:No, Polydipsia:No, Polyuria:No, Goiter:No, Hyper/hypothyroidism:No, Dyslipidemia:No Allergic, Immunology: Urticaria:No, Collagen vascular disease:No Other: The rest of the review of systems is unremarkable and negative or non-contributory. OBJECTIVE: VITALS: BP 136/80 Pulse 84 Ht 5' 8 (1.73m) Wt 267 lb (121.1kg) BMI 40.61 kg/(m^2). PHYSICAL EXAMINATION: GENERAL APPEARANCE: Appears Healthy:Yes, Obese:Yes, Acute distress:No, Appearance consistent with age:Yes, Responds appropriately: Yes MENTAL STATUS: Alert:Yes, Cooperative:Yes, Pleasant:Yes, Affect: normal EYES: Conjunctiva/corneas normal:Yes, PERRL:Yes, Scleral icterus:No, Xanthelasma:No HEAD, NECK: Good oral hygiene:Yes, Oral mucosa normal:Yes, Jugular venous distention:No, Hepatojugular reflux:No, Thyromegaly:No, Carotid endarterectomy:No,Thyroidectomy :No RESPIRATORY:Chest movement symmetrical:Yes, Respiratory effort normal:Yes, Percussion of chest normal:Yes, Breath sounds normal:Yes, Crackles:No, Rales:No, Rhonchi:No, Wheezing:No, Pleural friction rub:No, Evidence of pacemaker/ICD:No, Median sternotomy scar:No, Sternal instability:No CARDIAC: Snowshoe beat not localized, Cardiac thrill:No, Heart rate normal:Yes, Heart rhythm normal:Yes, S1 normal:Yes, S2 normal:Yes, S3 ausculated:No, S4 ausculated:No, Gallop ausculated:No, Heart murmur:No, Prosthetic valve click:No, Pericardial friction rub:No ABDOMINAL:Abdomen soft, non-tender. BS normal. No masses or organomegaly. and positive findings: Morbid obese VASCULAR/EXTREMITIES:Radial pulse normal:Yes, Carotid pulse normal:Yes, Carotid bruit:No, Abdominalaorta palpable:No, Abdominal aortic bruit:No, Femoral pulse normal:Yes, Femoral bruit:No, Dorsalis pedis pulse present:Yes, Posterior tibial pulse present:Yes, Popliteal pulse:Yes, Varicose veins:No,Leg edema:No, Pedal edema:Yes NEUROLOGIC: Grossly non-focal:Yes MUSCULOSKELETAL: Muscle strength normal:Yes, Joint range of motion normal:Yes SKIN: Clubbing:No, Cyanosis:No, Pallor:No, Diaphoresis:No, Stasis dermatitis/post phlebitic changes:No, Cutaneous xanthoma:No REVIEWED: ECG: YES normal sinus rhythm 84 bpm rest of EKG unremarkable. Echo: No Cath: No Stress: YES As above PREVENTATIVE CARE: GENERAL: Non-smoker DIET/EXERCISE: Recommended weight loss. Discussed weight management stratagies. Recommended regular physical activity. Discussed low sodium diet. Discussed low cholesterol diet. PATIENT EDUCATION: Continue with medications as directed. Prescription risks and side effects discussed. ASSESSMENT/PLAN/RECOMMENDATIONS: The patient is an extremely pleasant, 66-year-old gentleman, who underwent provocative nuclear testing, December 2021, after describing exertional dyspnea to his primary care physician. The stress test revealed no evidence for inducible ischemia or previous myocardial scarring, with preserved left and right ventricular size and systolic function and normal ejection fraction. Clinical examination was notable for morbid obesity. The patient's stress test results implications were discussed in detail and all questions answered. At this time, with the exception of aggressive risk factor modification, namely weight loss and maintenance, regimented diet and exercise, no additional cardiac work-up is necessary. After reviewing his current medication regimen, I see no reason to make any changes. The patient will follow with me in the office on an as-needed basis. Encounter Diagnosis ICD-10-CM 1. Dyspnea on exertion R06.09 Aure Piper MD [facility]* Encounter Date Diagnosis Assessment Notes Treatment Notes Treatment Clinical Notes Feb, Acute non-recurrent maxillary sinusitis (ICD-10 - J01.00) Instructed to use Robitussin or Mucinex for cough, saline or Flonase NS for congestion, Tylenol for pain and fever. Feb, IFG (impaired fasting glucose) (ICD-10 - R73.01) Healthy diet, reduce calories, reduce carbs, increase activity/exercise and weight loss. A1C every 6 mo Feb, Hypertension (ICD-10 - I10) This patient is instructed to consume a healthy, low-fat, low-salt diet. They are also encouraged to continue exercise to achieve/maintain a normal BMI. 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 They are instructed to reduce calories, portion sizes and snacks. It is recommended that they exercise for 30 minutes, 3-5 times weekly. Feb, Other iron deficiency anemia (ICD-10 - D50.8) UTD w/ CRC screening w/o melena, hematochezia or change in appetite or bowel habits. B12, FA normal w/ low normal Fe. Fe supplement w/ recheck in 3 mo. Any symptoms of esophagitis, PUD, lower GE bleeding: EGD, scope Feb, Chronic venous insufficiency (ICD-10 - I87.2) Avoid salt and elevate lower extremities, support stockings, inspect legs and feet daily for blisters and ulcerations. [employer] Other 01-11-2023 Hospital Discharge instructions Follow Up Care 03/01/2022 08:39:24 With:MANJINDER LYLES, Lorenzo Valenzuela, URL Address: [facility] [address] , [place] [address]- When: Unknown Comments:Sched Cysto w/Possible UD [facility] 01-11-2023 Hospital Discharge instructions Patient Education 03/01/2022 08:31:17 Testicular Self-Exam, [facility] Testicular Self-Exam A self-exam of your testicles (testicular self-exam) is looking at and feeling your testicles for unusual lumps or swelling. Swelling, lumps, or pain can be caused by: Injuries. Puffiness, redness, and soreness (inflammation). Infection. Extra fluids around your testicle (hydrocele). Twisted testicles (testicular torsion). Cancer of the testicle (testicular cancer). Why is it important to do a self-exam of testicles? You may need to do self-exams if you are at risk for cancer of the testicles. You may be at risk ifyou have: A testicle that has not descended (cryptorchidism). A history of cancer of the testicle. A family history of cancer of the testicle. How to do a self-exam of testicles It is easiest to do a self-exam after a warm bath or shower. Testicles are harder to examine when you are cold. A normal testicle is egg-shaped and feels firm. It is smooth, and it is not tender. At the back of your testicles, there is a firm cord that feels like spaghetti (spermatic cord). Look and feel for changes Stand and hold your penis away from your body. Look at each testicle to check for lumps or swelling. Roll each testicle between your thumb and finger. Feel the whole testicle. Feel for: ?Lumps. ?Swelling. ?Discomfort. Check for swelling or tender bumps in the groin area. Your groin is where your lower belly (abdomen) meets your upper thighs. Contact a health care provider if: You find a bump or lump. This may be like a small, hard bump that is the size of a pea. You find swelling. You find pain. You find soreness. You see or feel any other changes. Summary A self-exam of your testicles is looking at and feeling your testicles for lumps or swelling. You may need to do self-exams if you are at risk for cancer of the testicle. You should check each of your testicles for lumps, swelling, or discomfort. You should check for swelling or tender bumps in the groin area. Your groin is where your lower belly (abdomen) meets your upper thighs. This information is not intended to replace advice given to you by your health care provider. Make sure you discuss any questions you have with your health care provider. Document Released: 05/04/2009 Document Revised: 05/29/2019 Document Reviewed: 01/01/2017 [employer] Patient Education 2020 [employer]. 03/01/2022 08:31:11 Prostate Cancer Screening Prostate Cancer Screening The prostate is a walnut-sized gland that is located below the bladder and in front of the rectum in males. The function of the prostate (prostate gland) is to add fluid to semen during ejaculation. Prostate cancer is the second most common type of cancer in men. A screening test for cancer is a test that is done before cancer symptoms start. Screening can helpto identify cancer at an early stage, when the cancer can be treated more easily. The recommended prostate cancer screening test is a blood test called the prostate-specific antigen (PSA) test. PSA is a protein that is made in the prostate. As you age, your prostate naturally produces more PSA. Abnormally high PSA levels may be caused by: Prostate cancer. An enlarged prostate that is not caused by cancer (benign prostatic hyperplasia, BPH). This condition is very common in older men. A prostate gland infection (prostatitis). Medicines to assist with hair growth, such as finasteride. Depending on the PSA results, you may need more tests, such as: A physical exam to check the size of your prostate gland. Blood and imaging tests. A procedure to remove tissue samples from your prostate gland for testing (biopsy). Who should have screening? Screening recommendations vary based on age. If you are younger than age 40, screening is not recommended. If you are age 40 54 and you have no risk factors, screening is not recommended. If you are younger than age 55, ask your health care provider if you need screening if you have oneof these risk factors: ?Being of -[place] descent. ?Having a family history of prostate cancer. If you are age 55 69, talk with your health care provider about your need for screening and how often screening should be done. If you are older than age 70, screening is not recommended. This is because the risks that screening can cause are greater than the benefits that it may provide (risks outweigh the benefits). If you are at high risk for prostate cancer, your health care provider may recommend that you have screenings more often or start screening at a younger age. You may be at high risk if you: Are older than age 55. Are -[place]. Have a father, brother, or uncle who has been diagnosed with prostate cancer. The risk may be higher if your family member's cancer occurred at an early age. What are the benefits of screening? There is a small chance that screening may lower your risk of dying from prostate cancer. The chance is small because prostate cancer is typically a slow-growing cancer, and most men with prostate cancer from a different cause. What are the risks of screening? The main risk of prostate cancer screening is diagnosing and treating prostate cancer that would never have caused any symptoms or problems (overdiagnosis and overtreatment). PSA screening cannot tell you if your PSA is high due to cancer or a different cause. A prostate biopsy is the only procedure to diagnose prostate cancer. Even the results of a biopsy may not tell you if your cancer needs tono treated. Slow-growing prostate cancer may not need any treatment other than monitoring, so diagnosing and treating it may cause unnecessary stress or other side effects. A prostate biopsy may also cause: Infection or fever. A false negative. This is a result that shows that you do not have prostate cancer when you actually do have prostate cancer. Questions to ask your health care provider When should I start prostate cancer screening? What is my risk for prostate cancer? How often do I need screening? What type of screening tests do I need? How do I get my test results? What do my results mean? Do I need treatment? Contact a health care provider if: You have difficulty urinating. You have pain when you urinate or ejaculate. You have blood in your urine or semen. You have pain in your back or in the area of your prostate. You have trouble getting or maintaining an erection (erectile dysfunction, ED). Summary Prostate cancer is a common type of cancer in men. The prostate (prostate gland) is located below the bladder and in front of the rectum. This gland adds fluid to semen during ejaculation. Prostate cancer screening may identify cancer at an early stage, when the cancer can be treated more easily. The prostate-specific antigen (PSA) test is the recommended screening test for prostate cancer. Discuss the risks and benefits of prostate cancer screening with your health care provider. If you are age 70 or older, screening is likely to lead to more risks than benefits (risks outweigh the benefits). This information is not intended to replace advice given to you by your health care provider. Make sure you discuss any questions you have with your health care provider. Document Released: 11/16/2017 Document Revised: 01/18/2018 Document Reviewed: 11/16/2017 [employer] Patient Education 2020 [employer]. Follow Up Care 01/24/2021 09:05:41 With:Ricardo Hinson MD, Lex Es[facility] Address: [facility] [address], [place] [address]- When:Within 1 Year(s) [facility] 11-30-2022 NoteHNO ID: [id number] Author: Damaris Gonzalez [employer] Service: ? Author Type: Commercial Producer Type: Progress Notes Filed: 01/18/2022 2:00 PM Note Text: RADIOLOGY SERVICE PROGRESS NOTE SERVICE DATE: 01/18/2022 SERVICE TIME: 12:38 PM PATIENT IDENTITY VERIFICATION COMPLETED USING TWO (2) STANDARD IDENTIFIERS: Name and Date of confirmed by patient verbally FALL SCREENING: Has the patient had 2 falls in the last year or 1 fall with injury or currently using an Ambulatory Assistive Device (Walker, Cane, Wheelchair, Crutches, etc.)? No PATIENT GENDER DATA: .male ALLERGIES: Reviewed and unchanged MEDICATIONS REVIEWED: Yes PATIENT RELEVANT IMPLANT DATA REVIEWED: Not Applicable CREATININE: No results found for: CREAT, EGFROTH, EGFRAA P.O.C.T. RESULTS: N/A January 18, [address] PERFORMED: No IV SITE: Ambulatory: A peripheral IV was started in the Left antecubital site with a Angio cath: 22 gauge. POST EXAM PIV STATUS: Discontinued PROCEDURE TYPE: NM Stress: 15.7mCi [id number] was administered IV for Rest Imaging at 12:40 by Hien Meza OUTPATIENT PSYCHIATRIST. 46 mCi [id number] was administered IV for Stress Imaging at 1357 by Hien Meza RT. ADMINISTRATION TIME: PATIENT DISCHARGED TO: Ambulatory patient, left NM department area. A Diagnostic radioactive procedure has taken place, with no further precautions necessary other than routine body substance precautions. More information regarding radiation safety can be found using this link: [email or web address] SIGNATURE: Damaris Gonzalez [employer] PATIENT NAME: Marlo Davies DATE: January 18, 2022 TIME: 12:38 PM PAGER/CONTACT #:[facility]11-30-2022 History of Present illness Narrative* Damaris Gonzalez Nuclear Tech - 01/18/2022 12:30 PM EST RADIOLOGY SERVICE PROGRESS NOTE SERVICE DATE: 01/18/2022 SERVICE TIME: 12:38 PM PATIENT IDENTITY VERIFICATION COMPLETED USING TWO (2) STANDARD IDENTIFIERS: Name and Date of confirmed by patient verbally FALL SCREENING: Has the patient had 2 falls in the last year or 1 fall with injury or currently using an Ambulatory Assistive Device (Walker, Cane, Wheelchair, Crutches, etc.)? No PATIENT GENDER DATA: .male ALLERGIES: Reviewed and unchanged MEDICATIONS REVIEWED: Yes PATIENT RELEVANT IMPLANT DATA REVIEWED: Not Applicable CREATININE: No results found for: CREAT, EGFROTH, EGFRAA P.O.C.T. RESULTS: N/A January 18, [address] PERFORMED: No IV SITE: Ambulatory: A peripheral IV was started in the Left antecubital site with a Angio cath: 22gauge. POST EXAM PIV STATUS: Discontinued PROCEDURE TYPE: NM Stress: 15.7mCi [id number] was administered IV for Rest Imaging at 12:40 by Hien Meza OUTPATIENT PSYCHIATRIST. 46 mCi [id number] was administered IV for Stress Imaging at 1357 by Hien Meza RT. ADMINISTRATION TIME: PATIENT DISCHARGED TO: Ambulatory patient, left NM department area. A Diagnostic radioactive procedure has taken place, with no further precautions necessary other than routine body substance precautions. More information regarding radiation safety can be found usingthis link: [email or web address] SIGNATURE: Michael Daniel PATIENT NAME: Marlo Davies DATE: January 18, 2022 TIME: 12:38 PM PAGER/CONTACT #: [facility] note* Encounter Date Diagnosis Assessment Notes Treatment Notes Treatment Clinical Notes Feb, Obstructive sleep apnea (ICD-10 - G47.33) Fortunately the patient is using and benefiting from treatment. Reviewed download, pressures and AHI well-controlled. Encouraged to increase sleep time more possible. Call if problems, recheck 2 years Feb, Insomnia, unspecified type (ICD-10 - G47.00) Has some reinitiation insomnia if he goes to bed too early. Discussed sleep hygiene practices that could help with this, conservative intervention for reinitiation insomnia discussed. Hopefully this will allow him to increase sleep time. Call if problems Feb, Other Call if any questions or problems. Patient is advised to work on healthy diet choices and appropriate servings, weight control, regular exercise as directed, and reduce fat intake. Use machine regularly, and keep up with mask changes as needed. Call if problems with mask toleration, increased sleepiness, or poor response to treatment. . [employer] Other Evaluation + Plan note Future Appointments Appointment Date:03/01/2023 08:30:00 AM Scheduled Provider:CONNER TELLES PA-C Location:[facility] Appointment Type:URO Office Visit [facility] Evaluation note* Diagnosis Dyspnea on exertion- Primary Other dyspnea and respiratory abnormality Morbid obesity with BMI of 40.0-44.9, adult (HCC) Morbid obesity [facility] this encounter [facility] noteNo InformationNort [employer] Other Evaluation note* Diagnosis Other chest pain documented in this encounter [facility] noteNo assessment information [facility] Work Phone: Evaluation note* Diagnosis Onset Date Resolution Status Acute gout acute Primary hypertension acute Urethral stricture acute Hypercholesterolemia acute IFG (impaired fasting glucose) acute Medicare annual wellness visit, subsequent acute Obesity acute Obstructive sleep apnea (adult) (pediatric) acute Primary hypertension acute Screening PSA (prostate specific antigen) acute [facility] Work Phone: History general Narrative - Reported* Type Description Date Medical History Obstructive sleep apnea (adult) (pediatric) Medical History Dependence on other enabling mac [employer] and devices Surgical History arthroscopic knee surgery Hospitalization History No Hospitalization histo ry information [employer] Other History general Narrative - Reported* Type Description Date Medical History Obstructive sleep apnea (adult) (pediatric) Medical History Dependence on other enabling mac meza and devices Medical History Anemia, unspecified type Medical History Hypertension Medical History Bloody urethral discharge Medical History Benign prostatic hyp erplasia with lower urinary tract symptoms, symptom details unspecified Medical History Cellulitis of left leg Medical History Chest pain Medical History IFG (impaired fasting glucose) Medical History Gastro-esophageal re flux disease with esophagitis, without bleeding Medical History High risk medication use Medical History Hypercholesterolemia Surgical History arthroscopic knee surgery Hospitalization History SEE SURGICAL [employer] Other History general Narrative - Reported* Type Description Date Medical History Obstructive sleep apnea (adult) (pediatric) Medical History Dependence on other enabling mac meza and devices Medical History Anemia, unspecified type Medical History Hypertension Medical History Bloody urethral discharge Medical History Benign prostatic hyp erplasia with lower urinary tract symptoms, symptom details unspecified Medical History Cellulitis of left leg Medical History Chest pain Medical History IFG (impaired fasting glucose) Medical History Gastro-esophageal re flux disease with esophagitis, without bleeding Medical History High risk medication use Medical History Hypercholesterolemia Surgical History arthroscopic knee surgery Surgical History Cystoscopy 2020 Surgical History Colonoscopy 07/2017 Hospitalization History SEE SURGICAL [employer] Other [facility] general Narrative - Reported* Type Description Date Medical History Obstructive sleep apnea (adult) (pediatric) Medical History Dependence on other enabling mac meza and devices Medical History Anemia, unspecified type Medical History Hypertension Medical History Bloody urethral discharge Medical History Benign prostatic hyp erplasia with lower urinary tract symptoms, symptom details unspecified Medical History Cellulitis of left leg Medical History Chest pain Medical History IFG (impaired fasting glucose) Medical History Gastro-esophageal re flux disease with esophagitis, without bleeding Medical History High risk medication use Medical History Hypercholesterolemia Medical History Left Renal Cyst Surgical History arthroscopic knee surgery Surgical History Cystoscopy 2020 Surgical History Colonoscopy 07/2017 Hospitalization History SEE SURGICAL [employer] Other Hospital course Narrative No data available for this section [facility] Discharge instructions No data available for this section [facility] No data available for this section [facility] Summary Purpose Family History Relationship Condition Age at Onset Recorded Date/T cristian father Unknown Advance Directives Advance Directive Response Recorded Date/ Time Advance Directives No December 16, 2016 11:33am Advance Directive Response Recorded Date/ Time Advance Directives No December 16, 2016 12:33pm Reason for Referral Reason Mr. Davies is kylah ng referred for persistent urethral bleeding Diagnosis 1 Bleeding from urethr a in male (N36.8) Referral Organization [facility] Referring Provider First Name Jairo Referring Provider Last Name Abhi Referring Provider Specialty Internal Me dicine Referred Organization [facility] Referred Provider Lorenzo Chau Referred Address [address] [place], [place],[address] Referred Provider Specialty Urology Referral Priority Routine General Notes Mr. Davies was re ferred to Urology 2 years ago for urethral bleeding. He completed his evaluation, which included a CT abdomen/pelvis as well as a cystoscopy. Dr. Silva instructed him to push fluids. He had been prescribed antibiotics for acute prostatitis, after which his bleeding improved. However, his bleeding recurred on an intermittent basis. He denies dysuria, polyuria or hematuria. He admits to a weaker stream and nocturia. He is being referred for re-evaluation of continued urethral bleeding. Chief Complaint and Reason for Visit Chief Complaint mechelle/annual Chief Complaint gout in big toe Chief Complaint gout in big toe Medicare Wellness Reason for Visit Acute gout Primary hypertension Urethral stricture Hypercholesterolemia IFG (impaired fasting glucose) Medicare annual wellness visit, subsequent Obesity Obstructive sleep apnea (adult) (pediatric) Primary hypertension Screening PSA (prostate specific antigen) Additional Source Comments (unrecognized sect ion and content) No Status Records FoundNo Status Records FoundNo Status Records FoundNo Status Records FoundNo Status Records Found INFORMATION SOURCE (unrecogn ized section and content) DATE CREATED AUTHOR 08/13/2018 [facility] DATE CREATED AUTHOR AUTHOR'S ORGANIZ ATION 02/10/2022 [facility] DATE CREATED AUTHOR AUTHOR'S ORGANIZ ATION 03/17/2022 [facility] DATE CREATED AUTHOR AUTHOR'S ORGANIZ ATION 03/27/2023 [facility] DATE CREATED AUTHOR AUTHOR'S ORGANIZ ATION 05/24/2023 [facility] Patient Care team informatio n (unrecognized section and content) Technical Clerk Relationship Specialty Start Date End Date Jairo Moe DO [address] [place] [address] PCP - General Internal Medicine 01/18/22 Technical Clerk Relationship Specialty Start Date End Date Jairo Moe DO [address] [place] [address] PCP - General Internal Medicine 01/18/22 Technical Clerk Relationship Specialty Start Date End Date Jairo Moe DO [address] [place] [address] PCP - General Internal Medicine 01/18/22 Team Status: Active Member Role Status Dates Jairo Moe DO Primary Care Provider Active Team Status: Inactive Member Role Status Dates Eric Rose MD Attending Provider Active S tart: February 22, 2023 End: February 22, 2023 Team Status: Inactive Member Role Status Dates Jairo Moe DO Primary Care Provider Active Start: March 20, 2023 End: March 20, 2023 Fariha Jay NP Attending Provider Active Start: March 20, 2023 End: March 20, 2023 Team Status: Inactive Member Role Status Dates Jairo Moe DO Primary Care Provide r, Attending Provider Active Start: September 27, 2023 End: September 27, 2023 Team Status: Inactive Member Role Status Dates Jairo Moe DO Primary Care Provide r, Attending Provider Active Start: December 18, 2023 End: December 18, 2023 Source Comments (unrecognize d section and content) In the event this informatio n is protected by the Federal Confidentiality of Alcohol and Drug Abuse Patient Records regulations: The Federal rules restrict any use of the information to criminally investigate or prosecute any alcohol or drug abuse patient.[facility] the event this information is protected by the Federal Confidentiality of Alcohol and Drug Abuse Patient Records regulations: The Federal rules restrict any use of the information to criminally investigate or prosecute any alcohol or drug abuse patient.[facility] System[facility] the event this information is protected by the Federal Confidentiality of Alcohol and Drug Abuse Patient Records regulations: The Federal rules restrict any use of the information to criminally investigate or prosecute any alcohol or drug abuse patient.[facility] Reason for Visit (unrecogniz ed section and content) Repeat LabReminder Reason Comments Radiology NM Specialty Diagnoses / Procedures Referred By Contact Referred To Contact MOLECULAR & FUNCTIONAL IMAGING Diagnoses Other chest pain Procedures NM CARDIAC PERF STRESS/EXERCISE MYOCARDIAL SPECT MULTIPLE STUDIES Provider, [facility] Molecular & Functional Imaging [address] [place] [address] Referral ID Status Reason Start Date Expiration Date V isits Requested Visits Authorized [id number] Closed Auto-Generate d Referral 01/17/2022 02/16/2023 1 1 [facility] resultsMedication ClarificationDiscussion Reason Comments New Patient Goals (unrecognized section and content) Goals may be documented in a n alternate section FOR RECORDS PERTAINING TO PATIENTS WHO ARE OR HAVE BEEN ENROLLED IN A CHEMICAL DEPENDENCY/SUBSTANCEABUSE PROGRAM, SOME INFORMATION MAY BE OMITTED. This clinical summary was aggregated from multiple sources. Caution should be exercised in using it in the provision of clinical care. This summary normalizes information from multiple sources, and as a consequence, information in this document may materially change the coding, format and clinical context of patient data. In addition, data may be omitted in some cases. CLINICAL DECISIONS SHOULD BE BASED ON THE PRIMARY CLINICAL RECORDS. [facility]. provides no warranty or guarantee of the accuracy or completeness of information in this document.
[2023-12-19 09:51] LABS: Basophils Absolute Auto 0.1 10^3/uL (0.0-0.1); Basophils Percent Auto 0.8 % (0.2-2.0); Eosinophils Absolute Auto 0.1 10^3/uL (0.0-0.7); Eosinophils Percent Auto 1.1 % (0.9-7.0); Hematocrit 40.9 % (42.0-54.0); Hemoglobin 14.1 g/dL (14.0-18.0); Immature Granulocytes Abs Auto 0.03 10^3/uL (0.00-0.03); Immature Granulocytes Pct Auto 0.5 % (0.0-0.5); Lymphocytes Percent Auto 31.6 % (20.5-60.0); Mean Corpuscular HGB Conc 34.5 g/dL (29.9-35.2); Mean Corpuscular Hemoglobin 30.4 pg (25.9-34.0); Mean Corpuscular Volume 88.1 fL (80.0-94.0); Mean Platelet Volume 9.5 fL (9.5-13.5); Monocytes Absolute Auto 0.6 10^3/uL (0.3-0.8); Monocytes Percent Auto 9.3 % (1.7-12.0); Neutrophils Absolute Auto 3.6 10^3/uL (1.4-6.5); Neutrophils Percent Auto 56.7 % (43.0-75.0); Platelet Count 209 10^3/uL (150-450); Red Blood Count 4.64 10^6/uL (4.70-6.10); Red Cell Distribution Width 13.2 % (11.0-15.0); White Blood Count 6.3 10^3/uL (4.0-11.0)
[2023-12-19 11:53] LABS: Estimated Average Glucose 128 mg/dL; Glycohemoglobin A1C 6.1 % (4.5-6.2)
[2023-12-19 11:55] LABS: Alanine Aminotransferase 54 U/L (16-63); Albumin Level 3.9 g/dL (3.4-5.0); Alkaline Phosphatase 64 U/L (46-116); Anion Gap 15.9; Aspartate Amino Transferase 40 U/L (15-37); BUN Creatinine Ratio 14.6; Bilirubin Total 0.5 mg/dL (0.2-1.0); Carbon Dioxide 26.3 mmol/L (21.0-32.0); Chloride 101 mmol/L (98-107); Chol HDL Ratio 3.7; Cholesterol 183 mg/dL (<=200); Estimated GFR (African America >60 (>=60 mL/min/1.73m^2); Estimated GFR (Non-African Ame 55 (>=60 mL/min/1.73m^2); Globulin 4.1 g/dL; Glucose 112 mg/dL (74-106); HDL Cholesterol 50 mg/dL (40-60); Potassium 4.2 mmol/L (3.5-5.1); Sodium 139 mmol/L (136-145); Triglycerides 178 mg/dL (<=150); VLDL CHOLESTEROL 35.6 mg/dL
== END 2023-12-19 09:13 | disposition home or self-care (01) ==
LOC: LAB 09:15
PROVIDERS: PCP Internal Medicine; Visit Provider Internal Medicine
DX: R73.01 Impaired fasting glucose (principal); I10 Essential (primary) hypertension; E78.00 Pure hypercholesterolemia, unspecified; Z12.5 Encounter for screening for malignant neoplasm of prostate
CPT/HCPCS: 36415; 80053; 80061; 83036; 85025; G0103

== ENCOUNTER 2024-04-29 14:29 | Outpatient (OUT) | payer MEDICARE, OTHER, SELFPAY ==
--- OUTSIDE RECORDS SUMMARY | 2024-04-29 14:52 | XMS_ITS | CCD ---
Author Organization [facility] Care Team Providers Care Communications Technician Name Role Phone MiltonEric Unavailable ABHI, DR TEIXEIRA Primary Care Unavailable ABHI, DR TEIXEIRA Admitting Unavailable ABHI, DR TEIXEIRA Attending Unavailable ABHI, DR TEIXEIRA Consulting Unavailable ABHI, DR TEIXEIRA Admitting Unavailable ABHI, DR TEIXEIRA Attending Unavailable ABHI, DR TEIXEIRA Consulting Unavailable ABHI, DR TEIXEIRA Primary Care Unavailable JAIRO MOE Primary Care Physician Jairo Moe DO Primary Care Provider AURE PIPER Referring Unavailable AURE PIPER Attending Unavailable JAIRO MOE Primary Care Unavailable AURE PIPER Referring Unavailable AURE PIPER Referring Unavailable Jairo Moe Unavailable DO Jairo Moe Primary Care Provider LINWOOD Jay Attending Provider [phone] Jairo Moe Primary Care Unavailable Fariha Jay Attending Unavailable Pierre, Fariha Admitting Unavailable Lorenzo CHAU Attending Unavailable CHAULorenzo Attending Unavailable JAIRO MOE Referring Unavailable Lorenzo CHAU Attending Unavailable CHAU, Lorenzo Valenuzela Attending Unavailable CHAU, Lorenzo R Attending Unavailable CHAU, Lorenzo R Attending Unavailable CHAU, Lorenzo R Admitting Unavailable CHAU, Lorenzo R Attending Unavailable CHAU, Lorenzo R Attending Unavailable Allergies Allergy Classification Reported Allergen(s) Allergy Type Date of Onset Reaction(s) Facility (1 source) No Known Medication Allergies; Translations: [No Known Medication Allergies] Propensity to adverse reactions (disorder) [facility] Repository Medications Current Medications Medication Drug Class(es) Dates Sig (Normalized) Sig (Original) allopurinol 100 mg oral tablet (5 sources) Xanthine Oxidase Inhibitor Start: 12-24-2023 allopurinol 100 mg Tab 100 mg = 1 tab(s), Refills(s) 0 Start Date: 12/24/23 Status: Ordered Start: 10-19-2023 take 2 tablets by mo uth once daily Allopurinol Active 0 .ROUTE .COMPLEX 180 October 19, 2023 5:12pm TAKE 2 TABLETS BY MOUTH EVERY DAY Start: 09-27-2023 End: 10-19-2023 take 200 mg by mouth once daily Allopurinol Discontinu ed 200 MG PO Daily 60 September 27, 2023 12:00am October 19, 2023 5:12pm amLODIPine 5 mg oral tablet (15 sources) Dihydropyridine Calcium Channel Cam Start: 01-15-2020 End: 04-18-2023 take 1 mg by mouth once daily amLODIPine 5 mg Tab mg tab(s), Oral, Daily, Refills(s) 0 Start Date: 12/13/20 Status: Ordered take 1 tablet by shayla th every twenty-four hours amLODIPine Besylate 10 MG 1 tablet Orall y Once a day Active Comment on above: Take 5 mg by mouth o nce daily. azithromycin 250 mg oral tablet (7 sources) Macrolide Antimicrobial Start: 12-13-2022 Azithromycin 250 MG as directed Orally daily for 5 days Nov, Active colchicine 0.6 mg oral tablet (4 sources) Start: 12-24-2023 colchicine 0.6 mg Tab 0.6 mg = 1 tab(s), Refills(s) 0 Start Date: 12/24/23 Status: Ordered Start: 09-27-2023 take 0.6 mg by mouth once ottoniel y Colchicine Active 0.6 MG PO Daily September 27, 2023 12:00am hydroCHLOROthiazide 12.5 mg / olmesartan medoxomil 40 mg oral tablet (13 sources) Thiazide Diuretic, Angiotensin 2 Receptor Cam Start: 12-24-2023 hydrochlorothiazide-olmesart an 12.5 mg-40 mg oral tablet 1 tab(s), Refill(s) 0 Start Date: 12/24/23 Status: Ordered Start: 12-03-2023 take 1 tablet by shayla th once daily Olmesartan-Hydrochlorothiazide Active 0 .ROUTE .COMPLEX 90 December 03, 2023 1:45pm TAKE 1 TABLET BY MOUTH EVERY DAY Start: 04-18-2023 End: 12-03-2023 take 1 tablet by mouth once daily Olmesartan-Hydrochlorothiazide Discontin ued 1 TAB PO Daily April 18, 2023 1:00am December 03, 2023 1:45pm take 1 tablet by shayla th once daily Olmesartan Medoxomil-HCTZ 40-12.5 MG CRISSY E 1 TABLET BY MOUTH EVERY DAY FOR 30 DAYS Active Multi Vitamin+ (3 sources) Start: 05-23-2023 Multi Vitamin+ Refill(s) 0 Start [...] 2023 1:00am take 1 capsule by mo [facility] every twenty-four hours Ferrex 150 150 MG 1 capsule Orally Once a day Active Polysaccharide I oxana Complex 150 MG TAKE 1 CAPSULE EVERY OTHER DAY for 30 Not-Taking/PRN Polysaccharide I oxana Complex 150 MG TAKE 1 CAPSULE EVERY OTHER DAY for 30 Not-Taking sildenafil 100 mg oral tablet (15 sources) Phosphodiesterase 5 Inhibitor Start: 12-24-2023 sildenafil 100 mg Tab 100 mg = 1 tab(s), Refills(s) 0 Start Date: 12/24/23 Status: Ordered Start: 08-30-2023 take 1 tablet by shayla th once daily as needed Sildenafil Active 0 [...] Drug Class(es) Dates Sig (Normalized) Sig (Original) amoxicillin 875 mg / clavulanate 125 mg oral tablet (20 sources) Penicillin-class Antibacterial Start: 08-23-2012 take 1 tablet by mouth every twelve hours Amoxicillin-Pot Clavulanate 875-125 MG 1 tablet Orally every 12 hrs for 7 days Feb, Not-Taking/PRN sulfamethoxazole 800 mg / trimethoprim 160 mg oral tablet (12 sources) Dihydrofolate Reductase Inhibitor Antibacterial, Sulfonamide Antimicrobial Start: 09-23-2020 take 1 tablet by mouth every twelve [...] 01-18-2022 Episodic Other aftercare (1 source) Other mcc (current) drug therapy; Translations: [OTH COMMERCIAL REPRESENTATIVE CURRENT DRUG THERAPY] Onset: 12-18-2021 Episodic Other aftercare (10 sources) H/O: high risk medication; Translations: [Other exterminator helper termite (current) drug therapy] Episodic Other diseases of bladder and urethra (11 sources) Other specified disorders of urethra; Translations: [Bloody urethral discharge] Episodic Other diseases of bladder and urethra (3 sources) Urethral stricture; Translations: [Unspecified urethral stricture, male, unspecified site] 09-27-2023 Episodic Other diseases of bladder and urethra (1 source) Unspecified urethral stricture, male, unspecified site; Translations: [Urethral stricture, unspecified] 09-27-2023 Episodic Other diseases of bladder and urethra (1 source) Male urethral stricture; Translations: [Unspecified urethral stricture, male, unspecified site] Onset: 12-24-2023 Episodic Other diseases of veins and lymphatics [...] of toe; Translations: [Cellulitis, toe] Episodic Unclassified (8 sources) Patient encounter status 03-01-2022 Viral infection [...] Interpretation Reference Range Facility Ambulatory Visit Summaryon 1 02-24-2023 Ambulatory Visit Summary Ambulatory Visit Summary BHAVESH DAVIES :1955 Visit Date:12/26/2023 Ambulatory Visit Instructions Your Care Team Attending Physician - Lorenzo CHAU MD Primary Care Physician - JAIRO MOE DO This Is Your Medications List allopurinol (allopurinol 100 mg Tab) amlodipine (amLODIPine 5 mg Tab) colchicine (colchicine 0.6 mg Tab) hydrochlorothiazide- olmesartan (hydrochlorothiazide -olmesartan 12.5 mg-40 mg oral tablet) multivitamin (Multi Vitamin+) sildenafil (sildenafil 100 mg Tab) Procedures Performed Dilation of urethra (12/24/2023), Cystourethroscopy with dilation of urethral stricture (01/05/2023), Colonoscopy. Medications What How Much When Instructions Unchanged allopurinol (allopurinol 100 mg Tab) 1 Tablets Unchanged amlodipine (amLODIPine 5 mg Tab) By Mouth Every day Unchanged colchicine (colchicine 0.6 mg Tab) 1 Tablets Unchanged hydrochlorothiazide- olmesartan (hydrochlorothiazide -olmesartan 12.5 mg-40 mg oral tablet) 1 Tablets Unchanged multivitamin (Multi Vitamin+) Unchanged sildenafil (sildenafil 100 mg Tab) 1 Tablets Allergies No Known Medication Allergies Problems Ongoing - Any problem that you are currently receiving treatment for. BPH with urinary obstruction History of urethral stricture Hypertension Prostate cancer screening Urethral stricture Historical - Any problem that you are no longer receiving treatment for. Gross hematuria Microscopic hematuria Patient Survey You may receive a survey via text or e-mail asking about your office visit. Please share your experience with us by completing your survey. We appreciate your feedback and thank you for choosing us for your care. [facility] Ambulatory Visit Summaryon 1 02-22-2023 Ambulatory Visit Summary Ambulatory Visit Summary DAVIESBHAVESH :1955 Visit Date:12/24/2023 Ambulatory Visit Instructions Your Diagnosis Urethral stricture BPH with urinary obstruction Your Care Team Attending Physician - MANJINDER LYLES, Lorenzo Valenzuela Primary Care Physician - JAIRO MOE DO This Is Your Medications List Contact prescribing physician if questions or concerns allopurinol (allopurinol 100 mg Tab) amlodipine (amLODIPine 5 mg Tab) colchicine (colchicine 0.6 mg Tab) hydrochlorothiazide- olmesartan (hydrochlorothiazide -olmesartan 12.5 mg-40 mg oral tablet) multivitamin (Multi Vitamin+) sildenafil (sildenafil 100 mg Tab) Procedures Performed Dilation of urethra (12/24/2023), Cystourethroscopy with dilation of urethral stricture (01/05/2023), Colonoscopy. Discharge Vitals Temperature (Temporal Artery) 37 ???C Heart Rate (Peripheral) 76 Respiratory Rate 16 Blood Pressure 132/81 Height 160 cm Height 63 in Weight 120 kg Weight 264 lb BMI 46.88 What to do next Scheduled Follow-Up Appointments Sunday 9:00 AM EST Where: [facility] [address] [place] [address]- You Need to Schedule the Following Appointments Follow Up with MANJINDER LYLES, [place] When: Where: [facility] [address] [place] [address]- Medications What How Much When Instructions Unchanged allopurinol (allopurinol 100 mg Tab) 1 Tablets Contact prescribing physician if questions or concerns Unchanged amlodipine (amLODIPine 5 mg Tab) By Mouth Every day Contact prescribing physician if questions or concerns Unchanged colchicine (colchicine 0.6 mg Tab) 1 Tablets Contact prescribing physician if questions or concerns Unchanged hydrochlorothiazide- olmesartan (hydrochlorothiazide -olmesartan 12.5 mg-40 mg oral tablet) 1 Tablets Contact prescribing physician if questions or concerns Unchanged multivitamin (Multi Vitamin+) Contact prescribing physician if questions or concerns Unchanged sildenafil (sildenafil 100 mg Tab) 1 Tablets Contact prescribing physician if questions or concerns Medications and Immunizations Administered Given lidocaine Top 2% Gel w/Appl 6 mL, 6 mL, Topical. For: Allergies No Known Medication Allergies Problems Ongoing - Any problem that you are currently receiving treatment for. BPH with urinary obstruction History of urethral stricture Hypertension Prostate cancer screening Urethral stricture Historical - Any problem that you are no longer receiving treatment for. Gross hematuria Microscopic hematuria Patient Survey You may receive a survey via text or e-mail asking about your office visit. Please share your experience with us by completing your survey. We appreciate your feedback and thank you for choosing us for your care. Education Materials Urethral Stricture Urethral stricture is when the tube that drains pee (urine) from the bladder out of the body (urethra) becomes too narrow. The urethra can become narrow because of scar tissue, infection, surgery, or an injury. This can make it difficult to pee (urinate). In females, the urethra opens above the vaginal opening. In males, the urethra opens at the tip of the penis, and the urethra is much longer than it is in females. Because of the length of the male urethra, urethral stricture is much more common in males. What are the causes? In males and females, common causes of urethral stricture include: ??? Urinary tract infection (UTI). ??? Sexually transmitted infection (STI). ??? Using a soft tube in the urethra to drain pee from the bladder (urinary catheter). ??? Urinary tract surgery. In males, common causes of urethral stricture include: ??? A severe injury to the pelvis. ??? Prostate surgery. ??? Injury to the penis. In many cases, the cause of urethral stricture is not known. What increases the risk? You are more likely to develop this condition if you: ??? Are male. Males who have had prostate surgery are at risk of developing this condition. ??? Use a urinary catheter. ??? Have had urinary tract surgery. What are the signs or symptoms? The main symptom of this condition is trouble peeing. This may cause decreased pee flow, dribbling, or spraying of pee. Other symptom of this condition may include: ??? Frequent UTIs. ??? Blood in the pee. ??? Pain when peeing. ??? Swelling of the penis in males. ??? Not being able to pee. How is this diagnosed? This condition may be diagnosed based on: ??? Your medical history and a physical exam. ??? Tests of your pee to check for infection or bleeding. ??? X-rays. ??? Ultrasound. ??? Retrograde urethrogram. With this test, a dye is injected into the urethra and then an X-ray is taken. ??? Urethroscopy. This is when a thin tube with a (more content not included)... Normal [facility] Reminderson 12-24-2023 Reminders Reminders - From: Erum Whittaker To: NADINE Chau; Sent: 12/24/2023 14:38:46 EST Show up: 03/22/2024 14:38:00 EST Subject: CYSTO/UD Due Date/Time: 04/14/2024 14:38:00 EST Reminder/Recall CHECK TO SEE IF PT NEEDS CYSTO/UD IN MAY 2024 Normal [facility] Urology Office/Clinic Noteon 12-24-2023 Urology Office/Clinic Note Urology Office/Clinic Note Chief Complaint dilation of urethra HPI Staff Pt called into the office this morning with complaints of difficulty of urination. He is here for a urethral dilation with Londono Sounds. Dysuria: pain and burning Incomplete bladder emptying: states he is going every 15 minutes or so Hematuria: denies blood in urine but states that about a week ago he noticed some blood spots in the front of his under wear. Frequency: denies Urgency: yes Nocturia: 1-3x Stream: weak and only small amounts coming out Leaking: denies Post void dripping: denies Wearing pads/ Depends: denies Urge incontinence: denies Stress incontinence: denies Incontinence without Sensory Awareness: denies Abdominal pain: denies Flank pain: denies Sexual complaints: denies History of Present Illness Tests reviewed: UA, cysto note I have reviewed the previous health record information and history for this patient from Dr. Chau. I have reviewed and verified the staff HPI to be accurate for this encounter. Review of Systems PHQ Score Initial [...] HPI. Physical Exam Vitals & Measurements T: 37 ???C(Temporal Artery) HR: 76(Peripheral) RR: 16 BP: 132/81 HT: 63 in HT: 160 cm WT: 120 kg WT: 264 lb BMI: 46.88 General Appearance: alert, no distress, well nourished, well developed male. Procedure Operative Information Anesthesia Type: Local Procedure: Local Urethral Dilation Complications: None Surgical risks, benefits, details of the procedure have been explained to the patient. Full informed consent has been obtained. Intraoperative Information Prepped: Patient is brought back to the endoscopy suite. Patient is placed in supine position. Patient prepped in the usual fashion with Betadine solution. 2% Xylocaine Jelly is placed per Urethra. The Urethra is: Very Tight The Urethra was dilated to: 20-30 Pashto with Londono sounds. Specimens Removed: None _18_ Fr zuluaga placed. Postoperative Information Patient is discharged home. Follow up arranged. Assessment/Plan 1. Urethral stricture (N35.919: Unspecified urethral stricture, male, unspecified site) Prior UD: 01/10/21. Cysto/UD 01/05/23 - Significant recurrence of stricture at the proximal penile urethra and into the bulb. Unable to pass scope. Inserted glidewire then dilated with Londono sounds 20-30 Fr. Previous strictured area was now fairly wide open. Was then able to pass scope. Pt had IO UD today wo complications. -Nurse visit Sunday for zuluaga removal. 2. BPH with urinary obstruction (N40.1: Benign prostatic hyperplasia with lower urinary tract symptoms) Cysto/UD 01/05/23 - Bilobar hypertrophy. High-grade trabeculation. UA neg. IPSS not completed (3). Not taking any BPH meds. Follow-up With When Contact Information MANJINDER LYLES, Lorenzo Valenzuela, URL [facility] [address], [place] [address]- Additional Instructions: Nurse visit Sunday for zuluaga removal. Patient Education Urethral Stricture I, Sue Melissa, personally scribed for Dr. Chau on 12/24/2023 13:41:34. . Documentation recorded by the scribe, Sue Melissa, accurately reflects the services(s) I performed and decisions made by me. Authenticated by Dr. Chau on 12/24/2023 13:42:37. Problem List/Past Medical History Ongoing BPH with urinary obstruction History of urethral stricture Hypertension Prostate cancer screening Urethral stricture Historical Gross hematuria Microscopic hematuria Procedure/Surgical History Dilation of urethra (12/24/2023), Cystourethroscopy with dilation of urethral stricture (01/05/2023), Colonoscopy. Medications allopurinol 100 mg Tab, 100 mg= 1 tab(s) amLODIPine 5 mg Tab, Oral, Daily colchicine 0.6 mg Tab, 0.6 mg= 1 tab(s) hydrochlorothiazide- olmesartan 12.5 mg-40 mg oral tablet, 1 tab(s) Multi Vitamin+ sildenafil 100 mg Tab, 100 mg= 1 tab(s) Allergies No Known Medication Allergies Social History Alcohol Never., 12/24/2023 Substance Abuse Never., 12/24/2023 Tobacco Never (less than 100 in lifetime) Tobacco Use:. Household tobacco concerns: No. Yes, 12/24/2023 Family History Heart disease: Father. Hypertension: Mother. Stroke: Mother and Father. Immunizations Vaccine Date Status diphtheria/pertussis , acel/tetanus adult 11/19/2020 Recorded SARS-CoV-2 (COVID-19) mRNA-1273 vaccine 07/02/2020 Recorde (more content not included)... [facility] Comment on above: Result Comment: Elec tronically Signed By: Lorenzo CHAU MD\.br\Date and Time Signed: 12/24/23 13:42 EST\.br\Electronically Co-Signed By: Sue Melissa\.br\Date and Time Co-Signed: 12/24/23 13:41 EST [place] 05-24-2023 Screens [id number] 8#1.00TIFF [facility] Ambulatory Visit Summaryon 0 05-23-2023 Ambulatory Visit Summary LASHONDA BHAVESH M :1955 Visit Date:05/23/2023 Ambulatory Visit Instructions Your [...] Where: [facility] [address] , [place] [address]- Medications What How Much When Instructions Unchanged [...] Follow these instructions at home: ? Take stzv-rtk-svnfoqy and prescription medicines only as told by your health care provider. ? If you were prescribed an antibiotic medicine, take it as told by your health care provider. Do not stop taking the antibiotic even if you start to feel better. ? Drink enough fluid to keep your urine pale yellow. ? Keep all (more content not included)... Normal [facility] Consent for Procedure/Surger yon 05-23-2023 Consent for Procedure/Surgery [id number]# 1.00TIFF [facility] Patient Educationon 05-23-19 24 Patient Education Urology [...] Follow these instructions at home: ? Take ofec-sui-nopvgvw and prescription medicines only as told by [...] provider. Document Revised: 12/13/2021 Document Reviewed: 12/13/2021 [employer] Patient Education ? 2022 [employer]. [facility] Reminderson 05-23-2023 Reminders - From: Erum Whittaker To: [facility] - Recalls Chau; Cc: Erum Whittaker; Sent: 01/22/2023 12:31:21 EST Show up: 05/21/2023 12:31:00 EDT Subject: Cysto/UD Due Date/Time: 06/11/2023 12:31:00 EDT Reminder/Recall Patient needs a Cysto/UD with Londono sounds sched for June 2023, 6 mo Patient sched for 02/01/24. PRW wanted 8 month from appt 05/23/23.[facility] Urology Office/Clinic Noteon 05-23-2023 Urology Office/Clinic Note [...] [facility] [address], [place] [address]- Additional Instructions: schedule Cysto with UD around [...] Mother and Father. Immunizations Vaccine Date Status diphtheria/pertussis , acel/tetanus adult 11/19/2020 Recorded SARS-CoV-2 (COVID-19) mRNA-1273 vaccine 07/02/2020 Recorded SARS-CoV-2 (COVID-19) mRNA-1273 vaccine 06/04/2020 Recorded SARS-CoV-2 (COVID-19) Ad26 vaccine 04/30/2020 Recorded SARS-CoV-2 (COVID-19) Ad26 vaccine 04/09/2020 Recorded Lab Results Ambulatory Point of Care Results Bilirubin Urine Dipstick: Negative (05/23/23 08:34:00) Blood Urine Dipstick: Trace-intact (05/23/23 08:34:00) Glucose Urine Dipstick: Negative (05/23/23 08:34:00) Ketones Urin (more content not included)... Normal [facility] Comment on above: Result Comment: Elec tronically Signed By: Lorenzo CHAU MD\.br\Date and Time Signed: 05/23/23 09:20 EDT\.br\Electronically Co-Signed By: Sue Melissa\.br\Date and Time Co-Signed: 05/23/23 09:19 EDT [facility] Fish and Urine Cyt o ([facility])on 01-10-2023 [facility] Diagnosis Info Invalid Interpretation Code [facility] Comment on above: Result Comment: A:Ur ine,Urine:Voided [...] correlated with cytology and cystoscopy results.* CPT 61660, 22617. Microscopic Notes - Microscopic Notes - Abnormal cells 9p21 deletions: Abnormal cells aneploid events: Total cells analyzed: 139 Hematuria: Gross Description Site ID:A color Alma fixative Alcohol Received 110 mls of clear alma fluid with the patient's name and, Urine on the vial. Electronically signed by : on: 01/10/2023 09:07:03 Performed By: #### 1 [id number] ####[facility] [address] [place] [address] Operative Reporton 3 Operative Report [id number] 7#1.00TIFF Normal [facility] Physician Referralon 023 Physician Referral [id number] 4#1.00TIFF Normal [facility] Screenson 01-03-2023 Screens [id number] #1.00TIFF Normal [facility] Ambulatory Visit Summaryon 1 03-04-2022 Ambulatory Visit Summary DAVIES BHAVESH M :1955 Visit Date:01/02/2023 Ambulatory Visit Instructions Your Diagnosis Gross hematuria Prostate cancer screening BPH (benign prostatic hyperplasia) History of urethral stricture Tests Performed Urnls Dip Stick Auto w/o Microscopy POC 25142 Your Care Team Attending Physician - Lorenzo [...] Follow Up with MANJINDER LYLES, Lorenzo Valenzuela, TJ[facility] When: Comments: Sched Cysto w/Possible UD Where: [facility] [address] [place] [address]- Medications What How Much When Instructions Unchanged amlodipine (amLODIPine 5 mg Tab) Every day Contact prescribing physician if questions or concerns Test Results Urnls Dip Stick Auto w/o Microscopy POC 47368 (01/02/2023) Bilirubin Urine Dipstick - Negative Blood Urine Dipstick - Trace-intact Glucose Urine Dipstick - Negative Ketones Urine Dipstick - Negative Leukocytes Urine Dipstick - Negative Nitrite Urine Dipstick - Negative Protein Urine Dipstick - Negative Specific Coffeen Urine Dipstick - 1.025 Urine Appearance Urine [...] for choosing us for your care. Normal [facility] Consent for Procedure/Surger yon 01-02-2023 Consent for Procedure/Surgery [id number] #1.00TIFF Normal [facility] UroVysion Fish and Urine Cyt o ( Labs)on 01-02-2023 [facility] Method of Extraction Voided Normal [facility] Comment on above: Performed By: #### 1 [id number] ####[facility] [address] [place] [address] [facility] Number of Jars 1 Invalid Interpretation Code [facility] Comment on above: Performed By: #### 1 [id number] ####[facility] [address] [place] [address] [facility] Specimen Urine Normal [facility] Comment on above: Performed By: #### 1 [id number] ####[facility] [address] [place] [address] [facility] Type of Service Technical Only Normal [facility] Comment on above: Performed By: #### 1 [id number] ####[facility] [address] [place] [address] Urology Office/Clinic Noteon 01-02-2023 Urology Office/Clinic Note [...] MANJINDER LYLES, (more content not included)... Normal [facility] Comment on above: Result Comment: Elec tronically Signed By: Lorenzo CHAU MD\.br\Date and Time Signed: 01/02/23 12:36 EST\.br\Electronically Co-Signed By: Coni Davies\.br\Date and Time Co-Signed: 01/02/23 12:34 EST Basic Metabolic Panel 11-20 Anion gap [Moles/Vol] 10.0 mmol/L No rt Cempra Other Calcium [Mass/Vol] 9.9184290 mg/dL Normal 8.5-10 .1 mg/dL [facility] Other Chloride [Moles/Vol] 100 mmol/L Normal 98-107 mmol/L [facility] Other CO2 [Moles/Vol] 30.20767294 mmol/L Normal 21.0-3 2.0 mmol/L [facility] Other Creatinine [Mass/Vol] 1.53179862 mg/dL Normal 0. 70-1.30 mg/dL [facility] Other Glucose [Mass/Vol] 127 mg/dL High 74-106 mg/dL [facility] Other Potassium [Moles/Vol] 3.29963935 mmol/L Normal 3 .5-5.1 mmol/L [facility] Other Sodium [Moles/Vol] 137 mmol/L Normal 136-145 mmol/L [facility] Other Urea nitrogen [Mass/Vol] 19.2904834 mg/dL High 7.0-18.0 mg/dL [facility] Other Urea nitrogen/Creatinine [Mass ratio] 14.6 mg/mg [facility] [employer] Other Basic Metabolic Panel see note [facility] [employer] Other Basic Metabolic Panel 55 Low >=60 [facility] [employer] Other Basic Metabolic Panel >60 >=60 [facility] [employer] Other PSA SCREENINGon 12-13-2022 PSA SCREENING 0.67 ng/mL <=4.00 ng/mL [facility] [employer] Other UA RANDOM W/MICROSCOPICon Clarity (U) CLEAR CLEAR [facility] [employer] Other Color (U) LT. YELLOW YELLOW [facility] [employer] Other Ketones Ql (U) Negative NEGATIVE mg/dL [facility] [employer] Other Leukocyte esterase Test strip Ql (U) Negative NEGATIVE [facility] [employer] Other pH (U) 7.0 [pH] 5.0-9.0 [facility] [employer] Other UA RANDOM W/MICROSCOPIC 0-2 #/HPF 0-2 #/HPF [facility] [employer] Other UA RANDOM W/MICROSCOPIC 1.020 1.005-1.025 [facility] [employer] Other UA RANDOM W/MICROSCOPIC Negative NEGATIVE [facility] Other UA RANDOM W/MICROSCOPIC 0.2 EU/dL 0.2-1.0 EU/dL [facility] [employer] Other UA RANDOM W/MICROSCOPIC TRACE #/HPF Abnormal NONE SEEN #/HPF [facility] Other UA RANDOM W/MICROSCOPIC NONE SEEN NONE SEEN [facility] Other UA RANDOM W/MICROSCOPIC RARE #/LPF NONE/RARE #/LPF [facility] [employer] Other UA RANDOM W/MICROSCOPIC None Seen #/HPF None Seen #/HPF [facility] Other UA RANDOM W/MICROSCOPIC NONE SEEN #/LPF NONE SEEN #/LPF [facility] Other UA RANDOM W/MICROSCOPIC NO [facility] Other CNOVon 03-17-2022 CNOV Office Visit (CARDAV) MARLO DAVIES ([id number]) 1955 M Date Time Provider Department 03/17/22 [...] Yes, Claudication:No CONDITIONS: Hypertension: Yes, Heart failure:No, [employer] Functional Classification: Class I, Atrial [...] History of Cancer: No Musculoskeletal: Muscle pain:No, Arthritis/Arthralgia :No Skin: Rash:No, Pruritus:No Neurologic: Headache:No, Dizziness:No, Seizures:No, Dementia:No Psychiatric: Anxiety:No, Depression:No, Over the past 2 weeks have you felt down, depressed or hopeless?:No, Over the past 2 weeks have you felt little interest or pleasure in doing things?:No Endocrine: Polyphagia:No, Polydipsia:No, Polyuria:No, Goiter:No, Hyper/hypothyroidism :No, Dyslipidemia:No Allergic, Immunology: Urticaria:No, Collagen vascular disease:No [...] Jugular venous distention:No, Hepatojugular reflux:No, Thyromegaly:No, Carotid endarterectomy:No,Th yroidectomy :No RESPIRATORY:Chest movement symmetrical:Yes, Respiratory effort normal:Yes, Percussion of chest normal:Yes, Breath sounds normal:Yes, Crackles:No, Rales:No, Rhonchi:No, Wheezing:No, Pleural friction rub:No, Evidence of pacemaker/ICD:No, Median sternotomy scar:No, Sternal instability:No CARDIAC: Chandler beat not localized, Cardiac thrill:No, Heart rate normal:Yes, Heart rhythm normal:Yes, S1 normal:Yes, S2 normal:Yes, S3 ausculated:No, S4 ausculated:No, Gallop ausculated:No, Heart murmur:No, Prosthetic valve click:No, Pericardial friction rub:No ABDOMINAL:Abdomen soft, non-tender. BS normal. No masses or organomegaly. and positive findings: Morbid obese VASCULAR/EXTREMITIES :Radial p (more content not included)... Normal [facility] URINALYSISOrdered By: Maine Garrett on 03-01-2022 Bilirubin Ql (U) Negative (03/01/22 12:03 PM) Normal Negative [facility] UA Auto SS Clarity (U) Clear (03/01/22 12:03 PM) Normal Clear [facility]A Auto SS Color (U) Yellow (03/01/22 12:03 PM) Normal Yellow [facility] UA Auto SS Crystals LM Ql (Urine sed) Present 1 (03/01/22 12:03 PM) Normal [facility] UA Auto SS Comment on above: Result Comment: trac e Epithelial cells.squamous LM.HPF (Urine sed) [#/Area] 0-2 /HPF Normal 0-2/HPF [facility] UA Aut o SS Glucose Test strip (U) [Mass/Vol] Negative (03/01/22 12:03 PM) Normal Negative [facility] UA Auto SS Hemoglobin Ql (U) Trace *ABN* (03/01/22 12:03 PM) Invalid Interpretation Code Negative [facility] UA Auto SS Ketones (U) [Mass/Vol] Negative (03/01/22 12:03 PM) Normal Negative [facility] UA Auto SS [place].plasma/Lithiu m.RBC (Bld) [Mass ratio] 0-3 /HPF Normal 0-3/HPF [facility] UA Auto SS Nitrite Ql (U) Negative (03/01/22 12:03 PM) Normal Negative [facility] UA Auto SS pH (U) 6.0 *NA* (03/01/22 12:03 PM) Invalid Interpretation Code 5.0 - 9.0 [facility] UA Auto SS Protein (U) [Mass/Vol] Negative (03/01/22 12:03 PM) Normal Negative [facility] UA Auto SS Specific gravity (U) [Rel density] 1.020 *NA* (03/01/22 12:03 PM) Invalid Interpretation Code 1.005 - 1.030 [facility] UA Auto SS UA Spec Desc Clean Catch (03/01/22 12:03 PM) Normal [facility] Auto SS Urobilinogen Qn (U) 0.3110565 {Dilma'U}/dL Normal 0.0 - 1.0 EU/dL [facility] UA Auto SS WBC Auto Ql (U) Negative (03/01/22 12:03 PM) Normal Negative [facility] UA Auto SS WBC LM.HPF (Urine sed) [#/Area] 0-5 /HPF Normal 0-5/HPF [facility] UA Auto SS CBC AUTO DIFFon 01-31-2022 BASO # 0.1 103/ul Normal 0.0-0.1 [facility] Comment on above: Performed By: #### C BC #### [facility] [address] [place], [place] [address] Dr. Jorge Luis Galicia Basophils/100 WBC (Bld) 0.9 % Normal 0.2-2.0 [facility] Comment on above: Performed By: #### C BC #### [facility] [address] [place], [place] [address] Dr. Jorge Luis Galicia EO # 0.1 103/ul Normal 0.0-0.7 [facility] Comment on above: Performed By: #### C BC #### [facility] [address] [place] [address] Dr. Jorge Luis Galicia Eosinophils/100 WBC (Bld) 1.4 % Normal 0.9-7.0 [facility] Comment on above: Performed By: #### C BC #### [facility] [address] [place] [address] Dr. Jorge Luis Galicia Erythrocyte distribution width (RBC) [Ratio] 13.1 % Normal 11.0-15.0 [facility] Comment on above: Performed By: #### C BC #### [facility] [address] [place] [address] Dr. Jorge Luis Galicia Hematocrit (Bld) [Volume fraction] 40.0 % Critically low 42.0-54.0 [facility] Comment on above: Performed By: #### C BC #### [facility] [address] [place] [address] Dr. Jorge Luis Galicia Hemoglobin (Bld) [Mass/Vol] 13.6 g/dL Critically low 14.0-18.0 [facility] Comment on above: Performed By: #### C BC #### [facility] [address] [place] [address] Dr. Jorge Luis Galicia IG # 0.02 10e3/ul Normal 0.00-0.03 [facility] Comment on above: Performed By: #### C BC #### [facility] [address] [place] [address] Dr. Jorge Luis Galicia IG % 0.4 % Normal 0.0-0.5 [facility] Comment on above: Performed By: #### C BC #### [facility] [address] [place] [address] Dr. Jorge Luis Galicia LYMPH # 1.7 103/ul Normal 1.2-3.8 [facility] Comment on above: Performed By: #### C BC #### [facility] [address] [place] [address] Dr. Jorge Luis Galicia Lymphocytes/100 WBC (Bld) 30.3 % Normal 20.5-60.0 [facility] Comment on above: Performed By: #### C BC #### [facility] [address] [place] [address] Dr. Jorge Luis Galicia MANUAL DIFF REQ NO Normal [facility] Comment on above: Performed By: #### C BC #### [facility] [address] [place] [address] Dr. Jorge Luis Galicia MCH (RBC) [Entitic mass] 29.7 pg Normal 25.9-34.0 [facility] Comment on above: Performed By: #### C BC #### [facility] [address] [place] [address] Dr. Jorge Luis Galicia MCHC (RBC) [Mass/Vol] 34.0 g/dL Normal 29.9-35.2 [facility] Comment on above: Performed By: #### C BC #### [facility] [address] [place] [address] Dr. Jorge Luis Galicia MCV (RBC) [Entitic vol] 87.3 fL Normal 80.0-94.0 [facility] Comment on above: Performed By: #### C BC #### [facility] [address] [place] [address] Dr. Jorge Luis Galicia MONO # 0.5 103/ul Normal 0.3-0.8 [facility] Comment on above: Performed By: #### C BC #### [facility] [address] [place] [address] Dr. Jorge Luis Galicia Monocytes/100 WBC (Bld) 9.3 % Normal 1.7-12.0 [facility] Comment on above: Performed By: #### C BC #### [facility] [address] [place] [address] Dr. Jorge Luis Galicia NEUT # 3.2 103/ul Normal 1.4-6.5 [facility] Comment on above: Performed By: #### C BC #### [facility] [address] [place] [address] Dr. Jorge Luis Galicia Neutrophils/100 WBC (Bld) 57.7 % Normal 43.0-75.0 [facility] Comment on above: Performed By: #### C BC #### [facility] [address] [place] [address] [address] Jorge Luis Galicia Platelet mean volume (Bld) [Entitic vol] 9.7 fL Normal 9.5-13.5 [facility] Comment on above: Performed By: #### C BC #### [facility] [address] [place] [address] Dr. Jorge Luis Galicia PLT 222 103/ul Normal 150-450 [facility] Comment on above: Performed By: #### C BC #### [facility] [address] [place] [address] [address] Jorge Luis Galicia RBC 4.58 106/ul Critically low 4.70-6.10 [facility] Comment on above: Performed By: #### C BC #### [facility] [address] [place] [address] Dr. Jorge Luis Galicia WBC 5.6 103/ul Normal 4.0-11.0 [facility] Comment on above: Performed By: #### C BC #### [facility] [address] [place] [address] Dr. Jorge Luis Galicia IRON AND TIBCon 01-31-2022 % SATURATION 19.6 % Normal [facility] Comment on above: Performed By: #### F ETIBC, B12FOL #### [facility] [address] [place] [address] Dr. Jorge Luis Galicia Iron [Mass/Vol] 71.0 ug/dL Normal 65.0-175.0 [facility] Comment on above: Performed By: #### F ETIBC, B12FOL #### [facility] [address] [place] [address] Dr. Jorge Luis Galicia TIBC DIRECT 363.0 ug/dL Normal 250.0-450.0 [facility] Comment on above: Performed By: #### F ETIBC, B12FOL #### [facility] [address] [place] [address] Dr. Jorge Luis Galicia VIT B12 AND FOLATEon 022 Cobalamin (Vitamin B12) [Mass/Vol] 465.0 pg/mL Normal 193.0-986.0 [facility] Comment on above: Performed By: #### F ETIBC, B12FOL #### [facility] [address] [place] [address] [address] Jorge Luis Galicia FOLATE 21.20 ng/mL Normal 8.60-58.90 [facility] Comment on above: Performed By: #### F ETIBC, B12FOL #### [facility] [address] [place] [address] [address] Jorge Luis Galicia NM CARDIAC PERF STRESS/EXERC ISEon 01-18-2022 NM CARDIAC PERF STRESS/EXERCISE * * *Final Report* * * DATE OF EXAM: Jan 18 2022 3:00PM AFN 0004 - NM CARDIAC PERF STRESS/EXERCISE / PROCEDURE REASON: chest pain, referal * * * * Physician Interpretation * * * * Stress Drapery Cutter Machine Report: [facility] Date of service: 01/18/2022 1:11:51 PM Supervising [...] 60 minutes later. See administered doses below. [facility] Date of service: 01/18/2022 1:11:51 PM Ordering Physician: AURE HURD Requesting Physician: Indication: Assessment for suspected CAD [...] unchanged with stress. Final Stress ECG Report: [facility] Date of service: 01/18/2022 1:11:51 PM Ordering physician: AURE PIPER payroll tax specialist: Marsha Sadler RN Interpreting physician: Alexander [...] 140/72 mmHg. The double product achieved was [address]. Medications: Last Used AMLODIPINE Resting ECG: Normal Sinus Rhythm Symptoms at rest: No symptoms Pharamcologic Protocol: Regadenoson Stress Exercise Table: +------+ +- --+---+---+ Stage Time (min) HR SYS VENKAT +------+ +- --+---+---+ 1 1.0 96 146 82 +------+ +- --+---+---+ 2 2.0 100 140 72 +------+ +- --+---+---+ 3 3.0 95 148 80 +------+ +- --+---+---+ 4 4.0 94 136 78 +------+ +- --+---+---+ +-----+---+---+---+ (more content not included)... Normal [facility] CBC AUTO DIFFon 12-13-2021 BASO # 0.1 103/ul Normal 0.0-0.1 [facility] Comment on above: Performed By: #### C BC #### [facility] [address] [place] [address] [address] Jorge Luis Galicia Basophils/100 WBC (Bld) 0.9 % Normal 0.2-2.0 [facility] Comment on above: Performed By: #### C BC #### [facility] [address] [place] [address] [address] Jorge Luis Galicia EO # 0.1 103/ul Normal 0.0-0.7 [facility] Comment on above: Performed By: #### C BC #### [facility] [address] [place] [address] Dr. Jorge Luis Galicia Eosinophils/100 WBC (Bld) 1.4 % Normal 0.9-7.0 [facility] Comment on above: Performed By: #### C BC #### [facility] [address] [place] [address] Dr. Jorge Luis Galicia Erythrocyte distribution width (RBC) [Ratio] 13.2 % Normal 11.0-15.0 [facility] Comment on above: Performed By: #### C BC #### [facility] [address] [place] [address] Dr. Jorge Luis Galicia Hematocrit (Bld) [Volume fraction] 40.4 % Critically low 42.0-54.0 [facility] Comment on above: Performed By: #### C BC #### [facility] [address] [place] [address] [address] Jorge Luis Galicia Hemoglobin (Bld) [Mass/Vol] 13.5 g/dL Critically low 14.0-18.0 [facility] Comment on above: Performed By: #### C BC #### [facility] [address] [place] [address] Dr. Jorge Luis Galicia IG # 0.02 10e3/ul Normal 0.00-0.03 [facility] Comment on above: Performed By: #### C BC #### [facility] [address] [place] [address] Dr. Jorge Luis Galicia IG % 0.3 % Normal 0.0-0.5 [facility] Comment on above: Performed By: #### C BC #### [facility] [address] [place] [address] Dr. Jorge Luis Galicia LYMPH # 1.5 103/ul Normal 1.2-3.8 [facility] Comment on above: Performed By: #### C BC #### [facility] [address] [place] [address] Dr. Jorge Luis Galicia Lymphocytes/100 WBC (Bld) 26.3 % Normal 20.5-60.0 [facility] Comment on above: Performed By: #### C BC #### [facility] [address] [place] [address] Dr. Jorge Luis Galicia MANUAL DIFF REQ NO Normal [facility] Comment on above: Performed By: #### C BC #### [facility] [address] [place] [address] Dr. Jorge Luis Galicia MCH (RBC) [Entitic mass] 30.1 pg Normal 25.9-34.0 [facility] Comment on above: Performed By: #### C BC #### [facility] [address] [place] [address] Dr. Jorge Luis Galicia MCHC (RBC) [Mass/Vol] 33.4 g/dL Normal 29.9-35.2 [facility] Comment on above: Performed By: #### C BC #### [facility] [address] [place] [address] Dr. Jorge Luis Galicia MCV (RBC) [Entitic vol] 90.0 fL Normal 80.0-94.0 [facility] Comment on above: Performed By: #### C BC #### [facility] [address] [place] [address] Dr. Jorge Luis Galicia MONO # 0.5 103/ul Normal 0.3-0.8 [facility] Comment on above: Performed By: #### C BC #### [facility] [address] [place] [address] [address] Jorge Luis Galicia Monocytes/100 WBC (Bld) 9.2 % Normal 1.7-12.0 [facility] Comment on above: Performed By: #### C BC #### [facility] [address] [place] [address] [address] Jorge Luis Galicia NEUT # 3.6 103/ul Normal 1.4-6.5 [facility] Comment on above: Performed By: #### C BC #### [facility] [address] [place] [address] [address] Jorge Luis Galicia Neutrophils/100 WBC (Bld) 61.9 % Normal 43.0-75.0 [facility] Comment on above: Performed By: #### C BC #### [facility] [address] [place] [address] Dr. Jorge Luis Galicia Platelet mean volume (Bld) [Entitic vol] 9.7 fL Normal 9.5-13.5 [facility] Comment on above: Performed By: #### C BC #### [facility] [address] [place] [address] Dr. Jorge Luis Galicia PLT 170 103/ul Normal 150-450 [facility] Comment on above: Performed By: #### C BC #### [facility] [address] [place] [address] Dr. Jorge Luis Galicia RBC 4.49 106/ul Critically low 4.70-6.10 [facility] Comment on above: Performed By: #### C BC #### [facility] [address] [place] [address] Dr. Jorge Luis Galicia WBC 5.7 103/ul Normal 4.0-11.0 [facility] Comment on above: Performed By: #### C BC #### [facility] [address] [place] [address] Dr. Jorge Luis Galicia GLYCOHEMOGLOBIN A1Con 2021 ADA RECOMMENDATION SEE BELOW Normal [facility] Comment on above: Result Comment: ADA RECOMMENDED LIMIT 4.0 - 6.0 ADA THERAPEUTIC TARGET < 7.0 ACTION SUGGESTED > 7.0 Performed By: #### A 1C #### [facility] [address] [place] [address] [address] Jorge Luis Galicia Glucose [Mass/Vol] 126 mg/dL Normal [facility] Comment on above: Performed By: #### A 1C #### [facility] [address] [place] [address] [address] Jorge Luis Galicia HbA1c (Bld) [Mass fraction] 6.0 % Normal 4.5-6.2 [facility] Comment on above: Performed By: #### A 1C #### [facility] [address] [place] [address] Dr. Jorge Luis Galicia LIPID PROFILEon 12-13-2021 CHOL-HDL RATIO NORM SEE BELOW Normal [facility] Comment on above: Result Comment: 3.3 - 4.4 LOW RISK 4.4 - 7.1 AVERAGE RISK 7.1 - 11.0 MODERATE RISK >11.0 HIGH RISK Performed By: #### L IPID, BMP #### [facility] [address] [place] [address] Dr. Jorge Luis Galicia Cholesterol [Mass/Vol] 198 mg/dL Normal <=200 [facility] Comment on above: Performed By: #### L IPID, BMP #### [facility] [address] [place] [address] Dr. Jorge Lusi Galicia Cholesterol in HDL [Mass/Vol] 62 mg/dL Critically high 40-60 [facility] Comment on above: Performed By: #### L IPID, BMP #### [facility] [address] [place] [address] [address] Jorge Luis Galicia Cholesterol in LDL [Mass/Vol] 110.6 mg/dL Normal [facility] Comment on above: Performed By: #### L IPID, BMP #### [facility] [address] [place] [address] Dr. Jorge Luis Galicia Cholesterol.total/Cho lesterol in HDL [Mass ratio] 3.2 {ratio} Normal [facility] Comment on above: Performed By: #### L IPID, BMP #### [facility] [address] [place] [address] Dr. Jorge Luis Galicia HDL NORMAL > or = 60 mg/dl - LOW CARDIOVASCULAR RISK <40 mg/dl - HIGH CARDIOVASCULAR RISK Normal [facility] Comment on above: Performed By: #### L IPID, BMP #### [facility] [address] [place] [address] [address] Jorge Luis Galicia LDL CALC NORMAL SEE BELOW Normal [facility] Comment on above: Result Comment: <100 mg/dl OPTIMAL 100 - 129 mg/dl NEAR OR ABOVE OPTIMAL 130 - 159 mg/dl BORDERLINE HIGH 160 - 189 mg/dl HIGH >190 mg/dl VERY HIGH Performed By: #### L IPID, BMP #### [facility] [address] [place] [address] [address] Jorge Luis Galicia Triglyceride [Mass/Vol] 127 mg/dL Normal <=150 [facility] Comment on above: Performed By: #### L IPID, BMP #### [facility] [address] [place] [address] [address] Jorge Luis Galicia VLDL CALC 25.4 mg/dL Normal [facility] Comment on above: Performed By: #### L IPID, BMP #### [facility] [address] [place] [address] [address] Jorge Luis Galicia PROF CHEM 8 (BAS METB)on Anion gap [Moles/Vol] 11.5 mmol/L Normal [facility] Comment on above: Performed By: #### L IPID, BMP #### [facility] [address] [place] [address] [address] Jorge Luis Galicia Calcium [Mass/Vol] 8.9 mg/dL Normal 8.5-10.1 [facility] Comment on above: Performed By: #### L IPID, BMP #### [facility] [address] [place] [address] [address] Jorge Luis Galicia Chloride [Moles/Vol] 102 mmol/L Normal 98-107 [facility] Comment on above: Performed By: #### L IPID, BMP #### [facility] [address] [place] [address] [address] Jorge Luis Galicia CO2 [Moles/Vol] 29.5 mmol/L Normal 21.0-32.0 [facility] Comment on above: Performed By: #### L IPID, BMP #### [facility] [address] [place] [address] [address] Jorge Luis Galicia Creatinine [Mass/Vol] 0.98 mg/dL Normal 0.70-1.30 [facility] Comment on above: Performed By: #### L IPID, BMP #### [facility] [address] [place] [address] [address] Jorge Luis Galicia EGFR-AF GAMBIAN >60 Normal >=60 [facility] Comment on above: Performed By: #### L IPID, BMP #### [facility] [address] [place] [address] [address] Jorge Luis Galicia EGFR-NON AF GAMBIAN >60 Normal >=60 [facility] Comment on above: Performed By: #### L IPID, BMP #### [facility] [address] [place] [address] [address] Jorge Luis Galicia Glucose [Mass/Vol] 113 mg/dL Critically high 74-106 [facility] Comment on above: Performed By: #### L IPID, BMP #### [facility] [address] [place] [address] [address] Jorge Luis Galicia Potassium [Moles/Vol] 4.0 mmol/L Normal 3.5-5.1 [facility] Comment on above: Performed By: #### L IPID, BMP #### [facility] [address] [place] [address] [address] Jorge Luis Galicia Sodium [Moles/Vol] 139 mmol/L Normal 136-145 [facility] Comment on above: Performed By: #### L IPID, BMP #### [facility] [address] [place] [address] [address] Jorge Luis Galicia Urea nitrogen [Mass/Vol] 21.0 mg/dL Critically high 7.0-18.0 [facility] Comment on above: Performed By: #### L IPID, BMP #### [facility] [address] [place] [address] [address] Jorge Luis Galicia Urea nitrogen/Creatinine [Mass ratio] 21.4 mg/mg Normal [facility] Comment on above: Performed By: #### L IPID, BMP #### [facility] [address] [place] [address] Dr. Jorge Luis Galicia ALLIED HEALTHon 08-13-2018 ALLIED HEALTH HNO ID: [id number] Author: Velasquez Daley Service: Radiology Author Type: [...] August 13, 2018 9:02 AM [facility] KNEE WO IVCON RTon 08-13 MRI [...] the medial meniscus. Patellofemoral arthrosis. Small effusion. Cloth Winder Machine Operator: MARQUEZ Transcribe Date/Time: Aug 13 2018 1:38P Dictated by : ADI TRAVIS MD This examination was interpreted and the report reviewed and electronically signed by: ADI TRAVIS MD on Aug 13 2018 1:40PM EST [id number] CN [facility] Vital Signs Date Time Vital Sign Value Performing Clinician Facility 12-24-2023 12:28-0500 Blood Pressure Location Lorenzo CHAU [facility] 12-24-2023 12:28-0500 Body temperature 98.6 [degF] Lorenzo CHAU [facility] 12-24-2023 12:28-0500 Diastolic blood pressure 81 mm[Hg] Lorenzo CHAU [facility] 12-24-2023 12:28-0500 Heart rate 76 /min Lorenzo CHAU [facility] 12-24-2023 12:28-0500 Respiratory rate 16 /min Lorenzo CHAU [facility] 12-24-2023 12:28-0500 Systolic blood pressure 132 mm[Hg] Lorenzo CHAU [facility] 12-18-2023 08:33-0400 Body height 172.72 cm [facility] 12-18-2023 08:33-0400 Body mass index (BMI) [Ratio] 39.8 kg/m2 [facility] 12-18-2023 08:33-0400 Body weight 118.89 kg [facility] 12-18-2023 08:33-0400 Diastolic blood pressure 75 mm[Hg] [facility] 12-18-2023 08:33-0400 Heart rate 86 /min [facility] 12-18-2023 08:33-0400 Respiratory rate 12 /min [facility] 12-18-2023 08:33-0400 Systolic blood pressure 115 mm[Hg] [facility] 09-27-2023 11:37-0400 Body height 172.72 cm [facility] 09-27-2023 11:37-0400 Body mass index (BMI) [Ratio] 39.2 kg/m2 [facility] 09-27-2023 11:37-0400 Body weight 117.02 kg [facility] 05-23-2023 08:35-0400 Blood Pressure Location Lorenzo CHAU [facility] 05-23-2023 08:35-0400 Body temperature 97.16 [degF] Lorenzo CHAU [facility] 05-23-2023 08:35-0400 Diastolic blood pressure 94 mm[Hg] Lorenzo CHAU [facility] 05-23-2023 08:35-0400 Heart rate 79 /min Lorenzo CHAU [facility] 05-23-2023 08:35-0400 Respiratory rate 16 /min Lorenzo CHAU [facility] 05-23-2023 08:35-0400 Systolic blood pressure 132 mm[Hg] Lorenzo CHAU [facility] 01-02-2023 11:27-0500 Blood Pressure Location Lorenzo CHAU [facility] 01-02-2023 11:27-0500 Diastolic blood pressure 88 mm[Hg] Lorenzo CHAU [facility] 01-02-2023 11:27-0500 Systolic blood pressure 144 mm[Hg] Lorenzo CHAU [facility] 12-13-2022 13:30-0400 Body height 172.72 cm Jairo Ball Other [facility] Other 12-13-2022 13:30-0400 Body mass index (BMI) [Ratio] 40.05 kg/m2 Jairo Ball Other [facility] Other 12-13-2022 13:30-0400 Body weight 119.48 kg Jairo Ball Other [facility] Other 12-13-2022 13:30-0400 Diastolic blood pressure 67 mm[Hg] Jairo Ball Other [facility] Other 12-13-2022 13:30-0400 Respiratory rate 12 /min Jairo Ball Other [facility] Other 12-13-2022 13:30-0400 Systolic blood pressure 105 mm[Hg] Jairo Ball Other [facility] Other 03-17-2022 09:06-0500 Body height 172.7 cm Aure Piper MD Work Phone: [facility] 03-17-2022 09:06-0500 Body weight 121.11 kg Aure Piper MD Work Phone: [facility] 03-17-2022 09:06-0500 Diastolic blood pressure 80 mm[Hg] Aure Piper MD Work Phone: [facility] 03-17-2022 09:06-0500 Heart rate 84 /min Aure Piper MD Work Phone: [facility] 03-17-2022 09:06-0500 Systolic blood pressure 136 mm[Hg] Aure Piper MD Work Phone: [facility] 03-16-2022 09:30-0500 Body height 172.72 cm Jairo Ball Other [facility] Other 03-16-2022 09:30-0500 Body mass index (BMI) [Ratio] 41.38 kg/m2 Jairo Ball Other [facility] Other 03-16-2022 09:30-0500 Body temperature 97.8 [degF] Jairo Ball Other [facility] Other 03-16-2022 09:30-0500 Body weight 123.47 kg Jairo Ball Other [facility] Other 03-16-2022 09:30-0500 Diastolic blood pressure 84 mm[Hg] Jairo Ball Other [facility] Other 03-16-2022 09:30-0500 SaO2% (BldA) [Mass fraction] 98 % Jairo Ball Other [facility] Other 03-16-2022 09:30-0500 Systolic blood pressure 138 mm[Hg] Jairo Ball Other [facility] Other 03-01-2022 08:09-0500 Blood Pressure Location Barney Yoo [facility] 03-01-2022 08:09-0500 Diastolic blood pressure 84 mm[Hg] Barney Yoo [facility] 03-01-2022 08:09-0500 Heart rate 80 /min Barney Yoo [facility] 03-01-2022 08:09-0500 Systolic blood pressure 166 mm[Hg] Barney Yoo [facility] 02-22-2021 09:30-0500 Body height 172.72 cm Eric Rose Other [facility] Other 02-22-2021 09:30-0500 Body mass index (BMI) [Ratio] 40.29 kg/m2 Eric Rose Other [facility] Other 02-22-2021 09:30-0500 Body temperature 96.2 [degF] Eric Rose Other [facility] Other 02-22-2021 09:30-0500 Body weight 120.2 kg Eric Rose Other [facility] Other 02-22-2021 09:30-0500 Diastolic blood pressure 84 mm[Hg] Eric Rose Other [facility] Other 02-22-2021 09:30-0500 SaO2% (BldA) [Mass fraction] 98 % Eric Rose Other [facility] Other 02-22-2021 09:30-0500 Systolic blood pressure 167 mm[Hg] Eric Rose Other [facility] Other Encounters Encounter Date Encounter Type Care Provider Facility Start: 12-26-2023 End: 12-26-2023 ambulatory Lorenzo CHAU Facility:[facility] Start: 12-26-2023 End: 12-26-2023 Patient encounter procedure Lorenzo CHAU [facility] Start: 12-24-2023 End: 12-24-2023 ambulatory Lorenzo CHAU Facility:[facility] Start: 12-24-2023 End: 12-24-2023 Patient encounter procedure Lorenzo CHAU [facility] Start: 12-18-2023 End: 12-18-2023 ambulatory [facility] Work Phone: Start: 12-18-2023 End: 12-18-2023 Patient encounter procedure [facility] Work Phone: Start: 12-14-2023 Patient encounter procedure [facility] Start: 09-27-2023 End: 09-27-2023 ambulatory [facility] Work Phone: Start: 09-27-2023 End: 09-27-2023 Patient encounter procedure [facility] Work Phone: Start: 05-23-2023 End: 05-23-2023 ambulatory Lorenzo CHAU Facility: [facility] Start: 05-23-2023 End: 05-23-2023 Patient encounter procedure Lorenzo CHAU [facility] Start: 03-20-2023 End: 03-20-2023 ambulatory Jairo Moe Facility:[facility] Start: 03-20-2023 End: 03-20-2023 ambulatory DO Jairo Ball Work Phone: [facility] Work Phone: Start: 03-20-2023 End: 03-20-2023 Patient encounter procedure DO Jairo Ball Work Phone: [facility] Work Phone: Start: 03-07-2023 End: 03-07-2023 ambulatory Jairo Ball Other [facility] Other Start: 03-07-2023 Telephone encounter Jairo Ball [facility] Start: 03-06-2023 End: 03-06-2023 ambulatory Jairo Ball Other [facility] Other Start: 03-06-2023 Telephone encounter Jairo Ball [facility] Start: 02-27-2023 End: 02-27-2023 ambulatory Jairo Ball Other [facility] Other Start: 02-27-2023 Telephone encounter Jairo Ball [facility] Start: 02-22-2023 End: 02-22-2023 Patient encounter procedure DO Jairo Moe Work Phone: [facility] Work Phone: Start: 01-10-2023 End: 01-10-2023 ambulatory Jairo Moe Other [facility] Other Start: 01-10-2023 Telephone encounter Jairo DUKES [facility] Start: 01-08-2023 Telephone encounter Jairo DUKES [facility] Start: 01-08-2023 End: 01-08-2023 ambulatory Lorenzo CHAU [facility] Other Start: 01-08-2023 End: 01-08-2023 Patient encounter procedure Lorenzo CHAU [facility] Start: 01-05-2023 End: 01-05-2023 ambulatory Lorenzo CHAU Facility:[id number] Start: 01-02-2023 End: 01-02-2023 ambulatory Lorenzo CHAU Facility:[facility] Start: 01-02-2023 End: 01-02-2023 Lab Drop off Lorenzo CHAU [facility] Start: 01-02-2023 End: 01-02-2023 ambulatory JAIRO MOE Facility:[facility] Start: 01-02-2023 End: 01-02-2023 Patient encounter procedure Lorenzo CHAU [facility] Start: 12-14-2022 End: 12-14-2022 ambulatory Jairo Moe Other [facility] Other Start: 12-14-2022 Telephone encounter Jairo DUKES [facility] Start: 12-13-2022 End: 12-13-2022 ambulatory Jairo Moe Other [facility] Other Start: 12-13-2022 Patient encounter procedure Jairo Moe [facility] Start: 11-16-2022 End: 11-16-2022 ambulatory Jairo Moe Other [facility] Other Start: 11-16-2022 Telephone encounter Jairo DUKES [facility] Start: 08-14-2022 End: 08-14-2022 ambulatory Jairo Moe Other [facility] Other Start: 08-14-2022 Telephone encounter Jairo Moe ERNST [facility] Start: 03-17-2022 End: 03-17-2022 ambulatory AURE PIPER Facility:[facility] Start: 03-17-2022 End: 03-17-2022 Patient encounter procedure Aure Piper MD Work Phone: Cardiology Comment on above: Dyspnea on exertion (Primary Dx); Morbid obesity with BMI of 40.0-44.9, adult (HCC) Start: 03-16-2022 End: 03-16-2022 ambulatory Jairo Moe Other [facility] Other Start: 03-16-2022 Office outpatient vi sit 25 minutes Jairo Moe [facility] Start: 03-01-2022 End: 03-01-2022 Lab Drop off Barney Yoo [facility] Start: 03-01-2022 End: 03-01-2022 Patient encounter procedure Barney Yoo [facility] Start: 01-31-2022 End: 02-01-[address] JAIRO MOE Facility: Start: 01-18-2022 End: 01-18-2022 ambulatory AURE PIPER Facility:[facility] Start: 01-18-2022 End: 01-18-2022 ambulatory AURE PIPER Facility:[facility] Start: 01-18-2022 End: 01-18-2022 Subsequent hospital visit by physician Scan N[facility] Rej Work Phone: Nuclear Medicine Comment on above: Other chest pain [R0 7.89] Start: 12-13-2021 End: 12-14-[address] JAIRO MOE Facility: Start: 02-22-2021 End: 02-22-2021 ambulatory Eric Milton Other [facility] Other Start: 02-22-2021 Office outpatient vi sit 25 minutes Eric Rose [facility] Procedures Date Procedure Procedure Detail Performing Clinician Start: 12-24-2023 Dilation of urethra Cait tenzin MANJINDER Start: 01-05-2023 Cystourethroscopy wi th dilation of urethral stricture Lorenzo MANJINDER Start: 12-13-[address] STEPHANIE MOE Comment on above: Performed By: #### P [facility] #### [facility] [address] [place] [address] Dr. Jorge Luis Galicia [facility] Barney Mayes Plan of Treatment Date Care Activity Detail Author Start: 11-19-2030 Urine microalbumin profile DTaP,Tdap,Td Vaccine (3 - Td or Tdap) [facility] Start: 12-13-2026 PROSTATE CANCER SCREENING DISCUSSION PROSTATE CANCER SCREENING DISCUSSION [facility] Start: 02-01-2024 ambulatory Ambulatory Facility:[id number] Start: 10-20-2022 Covid-19 Vaccine ( season) Covid-19 Vaccine ( season) [facility] Start: 10-20-2022 Influenza vaccination Influenza Vaccine (#1) [facility] Start: 02-19-2022 ADVANCE DIRECTIVE DISCUSSION ADVANCE DIRECTIVE DISCUSSION [facility] Start: 02-19-2022 DEPRESSION ASSESSMENT DEPRESSION ASSESSMENT [facility] Start: 10-20-2021 Influenza vaccination INFLUENZA (#1) [facility] Start: 08-27-2020 COVID-19 VACCINE (4 - Booster for Shey series) COVID-19 VACCINE (4 - Booster for Shey series) [facility] Start: 2018 Pneumococcal Vaccine: 65+ (1 - PCV) Pneumococcal Vaccine: 65+ (1 - PCV) [facility] Start: 2018 PNEUMOCOCCAL: 65+ (1 - PCV) PNEUMOCOCCAL: 65+ (1 - PCV) [facility] Start: 2013 RSV Vaccine (1 - 1-dose 60+ series) RSV Vaccine (1 - 1-dose 60+ series) [facility] Start: 12-05-2003 SHINGRIX VACCINE (1 of 2) SHINGRIX VACCINE (1 of 2) [facility] Start: 1998 COLOGUARD (FIT-DNA) COLOGUARD (FIT-DNA) [facility] Start: 1998 Colonoscopy COLONOSCOPY [facility] Start: 1998 COLORECTAL CANCER SCREENING COLORECTAL CANCER SCREENING [facility] Start: [address] COLONOGRAPHY [facility] Start: 1998 DIABETES SCREEN DIABETES SCREEN [facility] Start: 1998 Diabetes Screening Diabetes Screening [facility] Start: 1998 FECAL OCCULT BLOOD FECAL OCCULT BLOOD [facility] Start: 1998 SIGMOIDOSCOPY SIGMOIDOSCOPY [facility] Start: 1988 Lipid 1996 panel - Serum or Plasma Lipid Screening [facility] Start: 1988 LIPID SCREEN LIPID SCREEN [facility] Start: 1972 Urine microalbumin profile DTAP,TDAP,TD (1 - Tdap) [facility] Start: 12-05-1971 HEPATITIS C SCREENING HEPATITIS C SCREENING [facility] Comprehensive metabo lic 2000 panel - Serum or Plasma [facility] Immunizations Immunization Date Immunization Notes Care Provider Genoveva cole 11-19-2020 tetanus and diphther ia toxoids, adsorbed, preservative free, for adult use (5 Lf of tetanus toxoid and 2 Lf of diphtheria toxoid) Jairo Moe Other [facility] 11-19-2020 tetanus toxoid, redu gary diphtheria toxoid, and acellular pertussis vaccine, adsorbed Barney Yoo [facility] 07-02-2020 SARS-CoV-2 (COVID-19 ) mRNA-1273 vaccine Barney Davison [facility] 06-04-2020 SARS-CoV-2 (COVID-19 ) mRNA-1273 vaccine Lannette [facility] 04-30-2020 SARS-CoV-2 (COVID-19 ) Ad26 vaccine, [facility] 04-09-2020 SARS-CoV-2 (COVID-19 ) Ad26 vaccine, recombinant [facility] 12-09-2019 pneumococcal polysaccharide vaccine, 23 valent Jairo Ball Other [facility] 11-08-2011 tetanus toxoid, redu gary diphtheria toxoid, and acellular pertussis vaccine, adsorbed Eric Rose Other [facility] Payers Date Payer Category Payer Self-pay [id number] 2019 Unknown MMO MMO MEDICARE SUPPLEMENT [id number] 2019-Present [phone] [address] [place] [address] Indemnity [id number] 2018 Medicare MEDICARE MEDICAR E A AND B [id number] 2018-Present [phone] [address] [address] [place] [address] Medicare [id number] 1959 Medicare [id number] 1959 Unknown [id number] 1953 Unknown [id number] 1953 Unknown [id number] 1953 Unknown [id number] 1953 Unknown [id number] 1953 Unknown [id number] 1953 Unknown [id number] 1953 Unknown [id number] 1953 Unknown [id number] 1953 Unknown [id number] Unknown [facility] [id number] Unknown [id number] Social History Date Type Detail Facility Start: 01-27-2020 End: 09-29-2020 Sex Assigned At [facility] Start: 03-01-2022 End: 12-24-2023 Tobacco smoking status Never smoked tobacco (finding) [facility] Tobacco smoking status Never [facility] Start: 11-02-2017 Tobacco use and exposure Smokeless tobacco non-user [facility] Start: 1955 Sex Assigned At Not on file [facility] Start: 01-27-2020 End: 09-29-2020 History of Social function [facility] Start: 01-08-2022 End: 01-18-2022 Exposure to SARS-CoV-2 (event) Not sure [facility] Work Phone: Start: 1955 Sex Assigned At Male [facility] Functional Status Date Assessment Result Facility 12-24-2023 [facility] N[facility]A [facility] 05-23-2023 Functional Status N/A [facility] 01-02-2023 Functional Status N/A [facility] 03-01-2022 Functional Status N/A [facility] Clinical Notes 02-22-2021 to 12-24-2023 Note Date & Type Note Facility 12-24-2023 Hospital Discharg e instructions Patient Education 12/24/2023 13:34:03 Urethral Stricture Urethral Stricture Urethral stricture is when the tube that drains pee (urine) from the bladder out of the body (urethra) becomes too narrow. The urethra can become narrow because of scar tissue, infection, surgery, or an injury. This can make it difficult to pee (urinate). In females, the urethra opens above the vaginal opening. In males, the urethra opens at the tip of the penis, and the urethra is much longer than it is in females. Because of the length of the male urethra, urethral stricture is much more common in males. What are the causes? In males and females, common causes of urethral stricture include: Urinary tract infection (UTI). Sexually transmitted infection (STI). Using a soft tube in the urethra to drain pee from the bladder (urinary catheter). Urinary tract surgery. In males, common causes of urethral stricture include: A severe injury to the pelvis. Prostate surgery. Injury to the penis. In many cases, the cause of urethral stricture is not known. What increases the risk? You are more likely to develop this condition if you: Are male. Males who have had prostate surgery are at risk of developing this condition. Use a urinary catheter. Have had urinary tract surgery. What are the signs or symptoms? The main symptom of this condition is trouble peeing. This may cause decreased pee flow, dribbling, or spraying of pee. Other symptom of this condition may include: Frequent UTIs. Blood in the pee. Pain when peeing. Swelling of the penis in males. Not being able to pee. How is this diagnosed? This condition may be diagnosed based on: Your medical history and a physical exam. Tests of your pee to check for infection or bleeding. X-rays. Ultrasound. Retrograde urethrogram. With this test, a dye is injected into the urethra and then an X-ray is taken. Urethroscopy. This is when a thin tube with a light and camera on the end (urethroscope) is used to look at the urethra. A CT scan or MRI. How is this treated? This condition is treated with surgery or other procedures. The type of surgery that you have [...] is cut open with a surgical blade or laser inserted through the urethroscope. Urethroplasty. In this procedure, an incision is made in the urethra and the narrow part is removed. Then, the urethra is reconstructed. Follow these instructions at home: Take [id number] and prescription medicines only as told by your health care provider. If you were prescribed antibiotics, take them as told by your provider. Do not stop using the antibiotic even if you start to feel better. Drink enough fluid to keep your pee pale yellow. Keep all follow-up visits. Your provider will check your healing and adjust your treatment plan as needed. Contact a health care provider if: You have frequent peeing or you are only peeing small amounts often. You feel the need to pee urgently. You have pain or burning when you pee. Your pee smells bad or unusual. Your pee is bloody or cloudy. You have pain in your lower abdomen or back. Your genital area is swollen, bruised, or discolored. This includes: ?The penis, scrotum, and inner thighs for males. ?The outer genital organs (vulva) and inner thighs for females. You have a fever. You develop swelling in your legs. Get help right away if: You cannot pee. You have trouble breathing. These symptoms may be an emergency. Get help right away. Call 911. Do not wait to see if the symptoms will go away. Do not drive yourself to the hospital. This information is not intended to replace advice given to you by your health care provider. Make sure you discuss any questions you have with your health care provider. Document Revised: 11/30/2022 Document Reviewed: 11/30/2022 [employer] Patient Education 2023 [employer]. Follow Up Care 12/24/2023 09:50:39 With:MANJINDER LYLES, Lorenzo Valenzuela, URL Address: [facility] [address] [place] [address]- When: Unknown [facility] Note Patient Education Urology Urethral Stricture Urethral stricture is when the tube that drains pee (urine) from the bladder out of the body (urethra) becomes too narrow. The urethra can become narrow because of scar tissue, infection, surgery, or an injury. This can make it difficult to pee (urinate). In females, the urethra opens above the vaginal opening. In males, the urethra opens at the tip of the penis, and the urethra is much longer than it is in females. Because of the length of the male urethra, urethral stricture is much more common in males. What are the causes? In males and females, common causes of urethral stricture include: ??? Urinary tract infection (UTI). ??? Sexually transmitted infection (STI). ??? Using a soft tube in the urethra to drain pee from the bladder (urinary catheter). ??? Urinary tract surgery. In males, common causes of urethral stricture include: ??? A severe injury to the pelvis. ??? Prostate surgery. ??? Injury to the penis. In many cases, the cause of urethral stricture is not known. What increases the risk? You are more likely to develop this condition if you: ??? Are male. Males who have had prostate surgery are at risk of developing this condition. ??? Use a urinary catheter. ??? Have had urinary tract surgery. What are the signs or symptoms? The main symptom of this condition is trouble peeing. This may cause decreased pee flow, dribbling, or spraying of pee. Other symptom of this condition may include: ??? Frequent UTIs. ??? Blood in the pee. ??? Pain when peeing. ??? Swelling of the penis in males. ??? Not being able to pee. How is this diagnosed? This condition may be diagnosed based on: ??? Your medical history and a physical exam. ??? Tests of your pee to check for infection or bleeding. ??? X-rays. ??? Ultrasound. ??? Retrograde urethrogram. With this test, a dye is injected into the urethra and then an X-ray is taken. ??? Urethroscopy. This is when a thin tube with a light and camera on the end (urethroscope) is used to look at the urethra. ??? A CT scan or MRI. How is this treated? This condition is treated with surgery or other procedures. The type of surgery that you have depends on the severity of your condition. You may have: ??? Urethral dilation. In this procedure, the narrow part of the urethra is stretched open (dilated) with dilating instruments or a small balloon. ??? Urethrotomy. In this procedure, a urethroscope is placed into the urethra, and the narrow part of the urethra is cut open with a surgical blade or laser inserted through the urethroscope. ??? Urethroplasty. In this procedure, an incision is made in the urethra and the narrow part is removed. Then, the urethra is reconstructed. Follow these instructions at home: ??? Take aweg-awy-tndngvw and prescription medicines only as told by your health care provider. ??? If you were prescribed antibiotics, take them as told by your provider. Do not stop using the antibiotic even if you start to feel better. ??? Drink enough fluid to keep your pee pale yellow. ??? Keep all follow-up visits. Your provider will check your healing and adjust your treatment plan as needed. Contact a health care provider if: ??? You have frequent peeing or you are only peeing small amounts often. ??? You feel the need to pee urgently. ??? You have pain or burning when you pee. ??? Your pee smells bad or unusual. ??? Your pee is bloody or cloudy. ??? You have pain in your lower abdomen or back. ??? Your genital area is swollen, bruised, or discolored. This includes: ? The penis, scrotum, and inner thighs for males. ? The outer genital organs (vulva) and inner thighs for females. ??? You have a fever. ??? You develop swelling in your legs. Get help right away if: ??? You cannot pee. ??? You have trouble breathing. These symptoms may be an emergency. Get help right away. Call 911. ??? Do not wait to see if the symptoms will go away. ??? Do not drive yourself to the hospital. This information is not intended to replace advice given to you by your health care provider. Make sure you discuss any questions you have with your health care provider. Document Revised: 11/30/2022 Document Reviewed: 11/30/2022 Elsevier Patient Education ? 2023 [employer]. [facility] 05-23-2023 Evaluation + Plan note Diagnostic Tests PendingPSA Screen, Total 05/23/23 [facility] 05-23-2023 Hospital Discharg e instructions Patient Education [...] reconstructed. Follow these instructions at home: Take gfbp-hkp-doiacoj and prescription medicines only as told by [...] provider. Document Revised: 12/13/2021 Document Reviewed: 12/13/2021 [employer] Patient Education 2022 [employer]. Follow Up Care 01/22/2023 12:42:55 With:MANJINDER LYLES, Lorenzo Valenzuela, URL Address: [facility] [address] , [place] [address]- When: Unknown [facility] 03-06-2023 Evaluation note Encounter Date Diagnosis Assessment Notes Feb, Iron deficiency anemia due to chronic blood loss (ICD-10 - D50.0) [facility] Other 01-09-2024 Evaluation note* Encounter Date Diagnosis Assessment Notes Treatment Notes Treatment Clinical Notes Feb, Anemia (ICD-10 - D64.9) [facility] Other 11-14-2023 Evaluation + Plan note Diagnostic Tests Pending * [facility] Fish and Urine Cyto ([facility]) 01/02/23 [facility]10-25-2023 Evaluation note* Encounter Date Diagnosis Assessment Notes [...] for congestion, Tylenol for pain and fever. [facility] Other 01-27-2023 NoteHNO ID: [id number] Author: Aure Piper MD Service: ? Author [...] Yes, Claudication:No CONDITIONS: Hypertension: Yes, Heart failure:No, [employer] Functional Classification: Class I, Atrial [...] pacemaker/ICD:No, Median sternotomy scar:No, Sternal instability:No CARDIAC: Chandler beat not localized, Cardiac thrill:No, Heart rate [...] present:Yes, Popliteal pulse:Yes, Beau (more content not included)...[facility]01-27-2023 History of Present illness Narrative* Aure [...] Yes, Claudication:No CONDITIONS: Hypertension: Yes, Heart failure:No, [employer] Functional Classification: Class I,Atrial fibrillation:No, [...] pacemaker/ICD:No, Median sternotomy scar:No, Sternal instability:No CARDIAC: Chandler beat not localized, Cardiac thrill:No, Heart rate [...] R06.09 Aure Piper MD documented [facility]* Encounter Date Diagnosis Assessment Notes [...] and feet daily for blisters and ulcerations. [facility] Other 01-11-2023 Hospital Discharge instructions Follow Up Care 03/01/2022 08:39:24 With:MANJINDER LYLES, Lorenzo Valenzuela, URL Address: [facility] [address], [place] [address]- When: Unknown Comments:Sched Cysto w/Possible UD [facility] 01-11-2023 Hospital Discharge instructions Patient Education 03/01/2022 08:31:17 Testicular Self-Exam, Emts-jv-Iwut Testicular Self-Exam A self-exam of your testicles [...] 05/04/2009 Document Revised: 05/29/2019 Document Reviewed: 01/01/2017 [employer] Patient Education 2020 [employer]. 03/01/2022 08:31:11 Prostate Cancer Screening Prostate Cancer [...] have oneof these risk factors: ?Being of -[place] descent. ?Having a family history of prostate [...] you: Are older than age 55. Are -Grenadian. Have a father, brother, or uncle who [...] 11/16/2017 Document Revised: 01/18/2018 Document Reviewed: 11/16/2017 [employer] Patient Education 2020 [facility] Follow Up Care 01/24/2021 09:05:41 With:Ricardo Hinson MD, Lex Esquivel URO Address: [facility] [address], [place] [address]- When:Within 1 Year(s) [facility] 11-30-2022 NoteHNO ID: [id number] Author: Damaris Gonzalez, [place] Service: ? Author Type: German Teacher Type: Progress Notes Filed: 01/18/2022 2:00 PM [...] STATUS: Discontinued PROCEDURE TYPE: NM Stress: 15.7mCi Jw67t-Yifwfrh was administered IV for Rest Imaging at 12:40 by Hien Meza CLINICAL STAFF EDUCATOR. 46 mCi Kg08j-Tqoiaah was administered IV for Stress Imaging at 1357 by Hien Meza RT. ADMINISTRATION TIME: PATIENT DISCHARGED TO: Ambulatory patient, left NM department area. A Diagnostic radioactive procedure has taken place, with no further precautions necessary other than routine body substance precautions. More information regarding radiation safety can be found using this link: [email or web address] %[email or web address]%20Nuclear%20Medicine%20Procedures.pdf SIGNATURE: Michael Daniel PATIENT NAME: Marlo Davies DATE: January 18, 2022 TIME: 12:38 PM PAGER/CONTACT #:[facility]11-30-2022 History of Present illness Narrative* Damaris [...] STATUS: Discontinued PROCEDURE TYPE: NM Stress: 15.7mCi Ik61w-Qfeypmp was administered IV for Rest Imaging at 12:40 by Hien Meza CLINICAL STAFF EDUCATOR. 46 mCi Xp85x-Qhhnbpr was administered IV for Stress Imaging at 1357 by Hien Meza RT. ADMINISTRATION TIME: PATIENT DISCHARGED TO: Ambulatory patient, left NM department area. A Diagnostic radioactive procedure has taken place, with no further precautions necessary other than routine body substance precautions. More information regarding radiation safety can be found usingthis link: [email or web address] 20Diagnostic%20Nuclear%20Medicine%20Procedures.pdf SIGNATURE: Michael Daniel PATIENT NAME: Marlo Davies DATE: January 18, 2022 TIME: 12:38 PM PAGER/CONTACT #: documented in this [facility] Evaluation note* Encounter Date Diagnosis Assessment Notes [...] sleepiness, or poor response to treatment. . [facility] Other Evaluation + Plan note Future Appointments Appointment Date:03/01/2023 08:30:00 AM Scheduled Provider:CONNER TELLES PA-C Location:Critical access hospital Appointment Type:URO Office Visit [facility] Evaluation + Plan note Future Appointments Appointment Date:12/26/2023 09:00:00 AM Scheduled Provider: Location:Critical access hospital Appointment Type:URO Nurse Visit [facility] evaluation note* Diagnosis Dyspnea on exertion- Primary Other dyspnea and respiratory abnormality Morbid obesity with BMI of 40.0-44.9, adult (HCC) Morbid obesity documented in this encounter [facility] noteNo InformationNort [facility] Other Evaluation note* Diagnosis Other chest pain documented in this encounter [facility] noteNo assessment information availableMadison Health Work Phone: Evaluation note* Diagnosis Onset Date Resolution Status Acute gout acute Primary hypertension acute Urethral stricture acute Hypercholesterolemia acute IFG (impaired fasting glucose) acute Medicare annual wellness visit, subsequent acute Obesity acute Obstructive sleep apnea (adult) (pediatric) acute Primary hypertension acute Screening PSA (prostate specific antigen) acute [facility] Work Phone: Hisxfub general Narrative - Reported* Type Description Date Medical History Obstructive sleep apnea (adult) (pediatric) Medical History Dependence on other enabling mac meza and devices Surgical History arthroscopic knee surgery Hospitalization History No Hospitalization histo ry information [facility] Other Hisg[facility] general Narrative - Reported* Type Description Date [...] arthroscopic knee surgery Hospitalization History SEE SURGICAL HX [facility] Other history general Narrative - Reported* Type Description Date [...] History Colonoscopy 07/2017 Hospitalization History SEE SURGICAL HX [facility] Other history general Narrative - Reported* Type Description Date [...] History Colonoscopy 07/2017 Hospitalization History SEE SURGICAL HX [facility] Other Hospital course Narrative No data available for this section [facility] Discharge instructions No data available for this section [facility] No data available for this section [facility] Summary Purpose Family History Relationship Condition Age [...] urethr a in male (N36.8) Referral Organization [facility] Referring Provider First Name Jairo Referring Provider Last Name Abhi Referring Provider Specialty Internal Me dicine Referred Organization [facility] Referred Provider Lorenzo Chau Referred Address [address] [place], [place],[address] Referred Provider Specialty Urology Referral Priority Routine [...] section and content) DATE CREATED AUTHOR 08/13/2018 Maris Beasleyit al DATE CREATED AUTHOR AUTHOR'S ORGANIZ ATION 02/10/2022 [facility] DATE CREATED AUTHOR AUTHOR'S ORGANIZ ATION 03/17/2022 [facility] DATE CREATED AUTHOR AUTHOR'S ORGANIZ ATION 03/27/2023 [facility] DATE CREATED AUTHOR AUTHOR'S ORGANIZ ATION 12/27/2023 [facility] Patient Care team informatio n (unrecognized section and content) Personnel Name: JAIRO MOE DO Address: Address: [address], [place] [address] Communications Technician Relationship Specialty Start Date End Date Jairo Moe DO [address] [place] [address] PCP - General Internal Medicine 01/18/22 Communications Technician Relationship Specialty Start Date End Date Jairo Moe DO [address] [place] [address] PCP - General Internal Medicine 01/18/22 Communications Technician Relationship Specialty Start Date End Date Jairo Moe DO [address] [place] [address] PCP - General Internal Medicine 01/18/22 Team [...] Status: Inactive Member Role Status Dates Jairo Ball , DO Primary Care Provide r, Attending Provider Active Start: December 18, 2023 End: December 18, 2023 Source Comments (unrecognize d section and content) In the event this informatio n is protected by the Federal Confidentiality of Alcohol and Drug Abuse Patient Records regulations: The Federal rules restrict any use of the information to criminally investigate or prosecute any alcohol or drug abuse patient.[facility] CenterIn the event this information is protected by the Federal Confidentiality of Alcohol and Drug Abuse Patient Records regulations: The Federal rules restrict any use of the information to criminally investigate or prosecute any alcohol or drug abuse patient.[facility] CenterIn the event this information is protected by the Federal Confidentiality of Alcohol and Drug Abuse Patient Records regulations: The Federal rules restrict any use of the information to criminally investigate or prosecute any alcohol or drug abuse patient.[facility] Reason for Visit (unrecogniz ed section and content) Repeat LabReminder Reason Comments Radiology NM Specialty Diagnoses / Procedures Referred By Contact Referred To Contact [facility]LECULAR [facility] FUNCTIONAL IMAGING Diagnoses Other chest pain Procedures NM CARDIAC PERF STRESS/EXERCISE MYOCARDIAL SPECT MULTIPLE STUDIES Provider, [facility] [address] [place] [address] Referral ID Status Reason Start Date Expiration Date V isits Requested Visits Authorized [id number] Closed Auto-Generate d Referral 01/17/2022 02/16/2023 1 1 [facility] resultsMedication ClarificationDiscussion Reason Comments New Patient Goals [...] BE BASED ON THE PRIMARY CLINICAL RECORDS. [employer] provides no warranty or guarantee of the accuracy or completeness of information in this document.
[2024-04-29 15:12] LABS: Uric Acid 7.5 mg/dL (3.5-7.2)
== END 2024-04-29 14:30 | disposition home or self-care (01) ==
LOC: LAB 14:30
PROVIDERS: PCP Internal Medicine; Visit Provider Internal Medicine
DX: E79.0 Hyperuricemia without signs of inflammatory arthritis and tophaceous disease (principal)
CPT/HCPCS: 36415; 84550

== ENCOUNTER 2025-01-12 09:23 | Outpatient (OUT) | payer MEDICARE, OTHER, SELFPAY ==
--- OUTSIDE RECORDS SUMMARY | 2025-01-12 09:32 | XMS_ITS | Clinical Summary ---
Author Organization [facility] Address [address] [place] [address] Care Team Providers Care Baker Name Role Phone Unavailable Primary Care Provider Unavailabl e Social History Tobacco UseTypesPacks/DayYears UsedDateSmoking Tobacco: Never AssessedSex and Gender InformationValueDate RecordedSex Assigned at BirthNot on fileLegal Sex Male05/03/2022 6:58 PM EDTGender IdentityNot on fileSexual OrientationNot on file Plan of Treatment Not on file
--- OUTSIDE RECORDS SUMMARY | 2025-01-12 09:32 | XMS_ITS | Clinical Summary ---
Author Organization [facility] Address [address] [place] [address] Care Team Providers Care Sheep Farmer Name Role Phone Jairo Moe DO Primary Care Provider [phone] Allergies No known active allergies Medications MedicationSigDispense QuantityRefillsLast FilledStart DateEnd DateStatus amLODIPine (NORVASC) 5 mg tablet Take 5 mg by mouth once daily.08/12/2020ctive sulfamethoxazole-trimethoprim (BACTRIM DS,SEPTRA DS) 800-160 mg per tablet Take 1 tablet by mouth twice daily.1Active Active Problems ProblemNoted DateDiagnosed DateAcute medial meniscus tear of right knee 07/22/2018 Social History Tobacco UseTypesPacks/DayYears UsedDateSmoking Tobacco: NeverSmokeless Tobacco: NeverArea Deprivation IndexAnswerDate RecordedNational Score (1-100), lower number is lower [id number] Score (1-10), lower number is lower risk Not on file03/17/2022ata from: https://www.neighborhoodatlas.medicine.[facility].edu/. Last address used for [id number] [place] [address]/17/2022Sex and Gender InformationValueDate Recorded Sex Assigned at BirthNot on fileLegal BsqPdtd2410/26/2017 11:02 AM EDTGender IdentityNot on fileSexual OrientationNot on file Last Filed Vital Signs Vital SignReadingTime TakenCommentsBlood Scajfgpm172/80003/17/2022 9:06 AM EST Amxpm946903/17/2022 9:06 AM ESTTemperature--Respiratory Rate--Oxygen Saturation-- Inhaled Oxygen Concentration--Leltgs610.1 kg (267 lb)03/17/2022 9:06 AM EST Tmlcrw359.7 cm (5' 8 )03/17/2022 9:06 AM ESTBody Mass Index40.6003/17/2022 9:06 AM EST Plan of Treatment Health MaintenanceDue DateLast DoneCommentsAnxiety Duvebpgok06/16/1972Depression Qbboldneh35/16/1972Hepatitis C Fksslmhgq72/16/1972Lipid Hfmjjonrk85/16/1989CT Xtwtaposrvet78/16/1999Cologuard (FIT-DNA)12/04/19984131Vwpdbolyvbf89/16/1999 Colorectal Cancer Mslgcoryt79/16/1999Diabetes Fiqeqvdug76/16/1999Fecal Occult Blood12/04/19985568Aydirefgtozkh21/16/1999Pneumococcal Vaccine: 50+ (1 of 1 - PCV) 12/05/2003Shingrix Vaccine (1 of 2)12/05/2003RSV Vaccine (1 - Risk 60-74 years 1-dose series)2013Medicare Annual Wellness Visit11/19/2018Advance Directive Ughhnbxuhn51/01/2025ovid-19 Vaccine ( season)2024 07/02/2020, 06/04/2020, 04/30/2020, Additional history existsInfluenza Vaccine (#1)10/20/2024DTaP,Tdap,Td Vaccine (3 - Td or Tdap), 11/08/2011 Insurance MemberSubscriberPlan / Payer (Effective 2019-Present)Name:Kamron Davies Relation to Subscriber:SelfName:Kamron Davies Payer ID:Not on file Group ID:Not on file Type:Indemnity Address: [place] [id number] Care Teams Team MemberRelationshipSpecialtyStart DateEnd Date Jairo Moe DO [address] [place] [address] PCP - GeneralInternal Uwxrfezw84/30/22
[2025-01-12 09:41] LABS: Hematocrit 34.8 % (42.0-54.0); Hemoglobin 12.8 g/dL (14.0-18.0); Immature Granulocytes Abs Auto 0.08 10^3/uL (0.00-0.03); Immature Granulocytes Pct Auto 0.9 % (0.0-0.5); Lymphocytes Absolute Auto 2.7 10^3/uL (1.2-3.8); Mean Corpuscular HGB Conc 36.8 g/dL (29.9-35.2); Mean Corpuscular Hemoglobin 35.8 pg (25.9-34.0); Mean Corpuscular Volume 97.2 fL (80.0-94.0); Platelet Count 190 10^3/uL (150-450); Red Blood Count 3.58 10^6/uL (4.70-6.10); White Blood Count 9.0 10^3/uL (4.0-11.0)
--- OUTSIDE RECORDS SUMMARY | 2025-01-12 09:46 | XMS_ITS | CCD ---
Author Organization [facility] Care Team Providers Care Seo Analyst Name Role Phone Eric Rose Unavailable DR JAIRO MOE Primary Care Unavailable ABHI, DR TEIXEIRA Admitting [...] Unavailable DO Jairo Moe Primary Care Provider [phone] LIN[place] Jay Fariha Attending Provider [phone] Jairo Moe Primary Care Unavailable Pierre Fariha Attending Unavailable Fariha Jay Admitting Unavailable Jairo Moe DO Primary Care Provider [phone] Jairo Moe DO Attending Provider [phone] Jairo Moe DO Primary Care Provider [phone] Jairo Moe DO Attending Provider Carolina Thao PA-C Unavailable Unavailable Carolina Thao PA-C Unavailable Unavailable Eric Kelley Attending Unavaila ble No, Physician Referring Unavailable Coby, Physician Referring Unavailable Carolina Thao Attending Unavailable Lorenzo CHAU Attending Unavailable Lorenzo CHAU Attending Unavailable Allergies Allergy ClassificationReported Allergen(s)Allergy TypeDate of OnsetReaction(s) Facility (1 source)No Known Medication Allergies; Translations: [No Known Medication Allergies]Propensity to adverse reactions (disorder)[facility] Medications Current Medications MedicationDrug Class(es)DatesSig (Normalized)Sig (Original)azithromycin 250 mg oral tablet (7 sources)Macrolide AntimicrobialStart: 34-67-0481Zjxnlaovijgb 250 MG as directed Orally daily for 5 days Nov, ActivehydroCHLOROthiazide 12.5 mg / olmesartan medoxomil 40 mg oral tablet (20 sources)Thiazide Diuretic, Angiotensin 2 Receptor BlockerStart: 09-09-2024 End: 76-85-9162hdrj 1 tablet by mouth once dailyOlmesartan-Hydrochlorothiazide 40-12.5 mg tablet Active 1 TAB PO Daily 90 90 3 October 28, 2024 12:50pm Complies with drug therapyStart: 61-18-3615dviypbfkrutlgaezfiy-olmesartan 12.5 mg-40 mg oral tablet 1 tab(s), Refill(s) 0 Start Date: 12/24/23 Status: Ordered Start: 12-03-2023 End: 89-21-2545dyix 1 tablet by mouth once dailyOlmesartan-Hydrochlorothiazide 40-12.5 mg tablet Discontinued 0 .ROUTE .COMPLEX 90 3 December 03, 2023 1:45pm September 09, 2024 8:17pm TAKE 1 TABLET BY MOUTH EVERY DAYStart: 04-18-2023 End: 36-96-9482zvhw 1 tablet by mouth once dailyOlmesartan-Hydrochlorothiazide 40-12.5 mg tablet Discontinued 1 TAB PO Daily April 18, 2023 1:00am December 03, 2023 1:45pmtake 1 tablet by mouth once dailyOlmesartan Medoxomil-HCTZ 40- 12.5 MG TAKE 1 TABLET BY MOUTH EVERY DAY FOR 30 DAYS ActiveMulti Vitamin+ (3 sources)Start: 18-80-9478Xvsqn Vitamin+ Refill(s) 0 Start Date: 05/23/23 Status: Orderedolmesartan medoxomil 40 mg oral tablet (1 source)Angiotensin 2 Receptor Blockertake 1 tablet by mouth once daily Olmesartan Medoxomil 40 MG TAKE 1 TABLET BY MOUTH EVERY DAY DIRECTED for 90 Activepolysaccharide iron complex 150 mg oral capsule (20 sources)Start: 72-59-4339ceuq 1 capsule by mouth once dailyPolysaccharide Iron Complex 150 mg iron capsule Active 150 MG PO Daily April 18, 2023 1:00am Complies with drug therapytake 1 capsule by mouth every twenty-four hours Ferrex 150 150 MG 1 capsule Orally Once a day ActivePolysaccharide Iron Complex 150 MG TAKE 1 CAPSULE EVERY OTHER DAY for 30 Not-Taking/PRNPolysaccharide Iron Complex 150 MG TAKE 1 CAPSULE EVERY OTHER DAY for 30 Not-Takingsildenafil 100 mg oral tablet (20 sources)Phosphodiesterase 5 InhibitorStart: 72-79-0212vupgxdokos 100 mg Tab 100 mg = 1 tab(s), Refills(s) 0 Start Date: 12/24/23 Status: OrderedStart: 53-27-1169kdqp 1 tablet by mouth once daily as neededSildenafil 100 mg tablet Active 0 .ROUTE .COMPLEX 6 5 August 30, 2023 8:33am TAKE 1 TABLET BY MOUTHONCE A DAY NEEDED Complies with drug therapyStart: 04-18-2023 End: 93-31-7859bwai 1 tablet by mouth once dailySildenafil 100 mg tablet Discontinued 100 MG PO Daily April 18, 2023 1:00am August 30, 2023 8:33am Start: 27-79-3608plrf 1 tablet by mouth once daily as neededSildenafil Citrate 100 MG 1 tablet as needed Orally Once a day as needed for ED for 30 days June, Active Completed/Discontinued Medications MedicationDrug Class(es)DatesSig (Normalized)Sig (Original)allopurinol 300 mg oral tablet (19 sources)Xanthine Oxidase InhibitorStart: 04-29-2024 End: 14-86-2928tity 1 tablet by mouth once dailyAllopurinol 300 mg tablet Discontinued 300 MG PO Daily 90 90 1 May 23, 2024 9:06am October 28, 2024 12:50pmStart: 54-10-6164fngtyatpkyr 100 mg Tab 100 mg = 1 tab(s), Refills(s) 0 Start Date: 12/24/23 Status: OrderedStart: 10-19-2023 End: 12-97-7207fyco 2 tablets by mouth once dailyAllopurinol 100 mg tablet Discontinued 0 .ROUTE .COMPLEX 180 October 19, 2023 5:12pm April 5:20pm TAKE 2 TABLETS BY MOUTH EVERY DAYStart: 09-27-2023 End: 67-25-6041qsnf 2 tablets by mouth once dailyAllopurinol 100 mg tablet Discontinued 200 MG PO Daily 60 30 2 September 27, 2023 12:00am October 19, 2023 5:12pmStart: 09-27-2023 End: 10-18-2469wscj 200 mg by mouth once dailyAllopurinol Discontinued 200 MG PO Daily 60 30 September 27, 2023 12:00am October 19, 2023 5:12pmamLODIPine 5 mg oral tablet (18 sources)Dihydropyridine Calcium Channel BlockerStart: 01-15-2020 End: 57-16-2982jkxh 1 tablet by mouth once dailyAmlodipine 5 mg tablet Discontinued 5 MG PO Daily January 15, 2020 1:00am April 18, 2023 4:32pm take 1 tablet by mouth every twenty-four hoursamLODIPine Besylate 10 MG 1 tablet Orally Once a day ActiveComment on above:Take 5 mg by mouth once daily. amoxicillin 875 mg oral tablet (2 sources)Penicillin-class AntibacterialStart: 08-18-2024 End: 09-78-0784nxdh 1 tablet by mouth twice dailyAmoxicillin 875 mg tablet Discontinued 875 MG PO Twice daily 20 10 August 18, 2024 12:00am October 28, 2024 12:21pm Take w/ Doxycyclineamoxicillin 875 mg / clavulanate 125 mg oral tablet (20 sources)Penicillin-class AntibacterialStart: 58-59-8395ixuv 1 tablet by mouth every twelve hoursAmoxicillin-Pot Clavulanate 875-125 MG 1 tablet Orally every 12 hrs for 7 days Feb, Not-Taking/PRNcephalexin 500 mg oral capsule (1 source)Cephalosporin AntibacterialStart: 11-21-2024 End: 90-27-4584cgxt 1 capsule by mouth three times dailyCephalexin 500 mg capsule Discontinued 500 MG PO Three times daily 21 7 0 November 21, 2024 12:00amOct2024 8:43amcolchicine 0.6 mg oral tablet (10 sources)Start: 03-07-2024 End: 38-41-7249fkgl 1 tablet by mouth once dailyColchicine 0.6 mg tablet Discontinued 0 .ROUTE .COMPLEX 90 1 March 07, 2024 3:13pm November 11:06am TAKE 1 TABLET BY MOUTH EVERY DAYStart: 61-33-9475biwvgfznat 0.6 mg Tab 0.6 mg = 1 tab(s), Refills(s) 0 Start Date: 12/24/23 Status: OrderedStart: 09-27-2023 End: 08-00-2868absv 1 capsule by mouth once dailyColchicine 0.6 mg capsule Discontinued 0.6 MG PO Daily September 27, 2023 12:00am March 07, 2024 3:13pmdoxycycline hyclate 100 mg oral capsule (2 sources)Tetracycline-class DrugStart: 08-18-2024 End: 09-17-3757wcll 1 capsule by mouth twice dailyDoxycycline Hyclate 100 mg capsule Discontinued 100 MG PO Twice daily 20 10 August 18, 2024 12:00am October 28, 2024 12:21pmpredniSONE 20 mg oral tablet (4 sources)Start: 11-21-2024 End: 62-32-2816ktjm 1 tablet by mouth twice daily, then take 1 tablet by mouth once dailyPrednisone 20 mg tablet Discontinued 20 MG PO .COMPLEX 21 14 0 December 18, 2024 9:03am December 18, 2024 9:05am 20 mg orally; 1 tab bid w/ food x 7 days, then 1 tab qd w/ food x 7 dayssulfamethoxazole 800 mg / trimethoprim 160 mg oral tablet (12 sources)Dihydrofolate Reductase Inhibitor Antibacterial, Sulfonamide AntimicrobialStart: 96-73-8021eylw 1 tablet by mouth every twelve hoursBactrim DS 800-160 MG 1 tablet Orally Twice a day for 10 days June, Not-Taking/PRNComment on above:Take 1 tablet by mouth twice daily. Problems Active Problems Problem ClassificationProblemDateDocumented DateEpisodic/ChronicAcute bronchitis (1 source)Acute bronchitis due to other specified organismsEpisodicDeficiency and other anemia (2 sources)Iron deficiency anemia due to blood loss; Translations: [Iron deficiency anemia secondary to blood loss (chronic)]ChronicDeficiency and other anemia (1 source)Iron deficiency anemia secondary to blood loss (chronic)Chronic Deficiency and other anemia (5 sources)Anemia, unspecified; Translations: [ANEMIA UNSPECIFIED]Onset: 04-32-8115KhwwegocVlcbukugtg and other anemia (15 sources)Iron deficiency anemia; Translations: [Other iron deficiency anemias]53-38-1355HnriswabRbakcquddk and other anemia (10 sources)Anemia; Translations: [Anemia, unspecified]EpisodicDeficiency and other anemia (1 source)Other iron deficiency anemiasEpisodicDiabetes mellitus without complication (20 sources)Impaired fasting glucose; Translations: [Impaired fasting glycemia] Onset: 02-93-4051XaltmultVoemzcdhc of lipid metabolism (17 sources)Pure hypercholesterolemia, unspecified; Translations: [Hypercholesterolemia]Onset: 424165-98-0849NbaljchTqpvvddgbl disorders (8 sources)Gastro-esophageal reflux disease with esophagitis; Translations: [Gastro-esophageal reflux disease with esophagitis, without bleeding]Chronic Essential hypertension (20 sources)Essential (primary) hypertension; Translations: [Hypertensive disorder]Onset: 054642-55-3107DkiyvvxEfociedixgbnl symptoms and ill- defined conditions (20 sources)Microscopic hematuria; Translations: [Other microscopic hematuria] Onset: 59-31-9113AxwmbvfaSgcd and other crystal arthropathies (6 sources)Acute gout; Translations: [Gout, unspecified]83-67-8830Skedpic Hyperplasia of prostate (20 sources)Benign prostatic hypertrophy without outflow obstruction; Translations: [Benign prostatic hyperplasia without lower urinary tract symptoms]Onset: 07-82-3181HhotqpfQjohcihdaqw chest pain (12 sources)Other chest pain; Translations: [Chest pain]Onset: 01-18-2022 75-34-8203MokvgocmCpbuwcmexgzrnb (13 sources)Unilateral primary osteoarthritis, left knee; Translations: [Unilateral primary osteoarthritis, right knee]Onset: 62-45-5792XthshqySipvd aftercare (1 source)Other terminal make up operator (current) drug therapy; Translations: [OTH ALF CURRENT DRUG THERAPY]Onset: 91-00-1854PtuneymsCwsac aftercare (10 sources)H/O: high risk medication; Translations: [Other long-term (current) drug therapy]EpisodicOther connective tissue disease (2 sources)Bursitis of olecranon of right elbow; Translations: [Olecranon bursitis, right elbow]83-88-5902LqmveqpdDeiqn connective tissue disease (1 source)H/O: gout; Translations: [Personal history of other diseases of the musculoskeletal system and connective tissue]20-13-5302InnkxyssQjcpi connective tissue disease (2 sources)Prepatellar bursitis of right knee; Translations: [Prepatellar bursitis, right knee]69-65-4798JudhnvrqYbgod diseases of bladder and urethra (11 sources)Other specified disorders of urethra; Translations: [Bloody urethral discharge]EpisodicOther diseases of bladder and urethra (6 sources)Urethral stricture; Translations: [Unspecified urethral stricture, male, unspecified site]43-24-8678XxejjkvyCsfxo diseases of bladder and urethra (1 source)Unspecified urethral stricture, male, unspecified site; Translations: [Urethral stricture, unspecified]92-83-2812CqlblskfRfnre diseases of bladder and urethra (1 source)Male urethral stricture; Translations: [Unspecified urethral stricture, male, unspecified site]Onset: 24-12-1681PksgjrvtIclzu diseases of veins and lymphatics (15 sources)Peripheral venous insufficiency; Translations: [Venous insufficiency (chronic) (peripheral)]36-92-3851JidmyqwfLgyhc diseases of veins and lymphatics (2 sources)Venous insufficiency (chronic) (peripheral)EpisodicOther lower respiratory disease (1 source)Dyspnea on exertion; Translations: [Other forms of dyspnea]Episodic Other male genital disorders (9 sources)Erectile dysfunction co-occurrent and due to arterial insufficiency; Translations: [Erectile dysfunction due to arterial insufficiency]ChronicOther nutritional; endocrine; and metabolic disorders (1 source)Body mass index 40+ - severely obese; Translations: [Morbid (severe) obesity due to excess calories]ChronicOther nutritional; endocrine; and metabolic disorders (10 sources)Morbid obesity; Translations: [Morbid (severe) obesity due to excess calories]ChronicOther nutritional; endocrine; and metabolic disorders (1 source)Morbid (severe) obesity due to excess caloriesChronicOther nutritional; endocrine; and metabolic disorders (5 sources)Obesity; Translations: [Obesity, unspecified]95-74-6831BqjpmneIivkc nutritional; endocrine; and metabolic disorders (1 source)Obesity, unspecified; Translations: [Obesity, unspecified]12-18-2023 ChronicOther screening for suspected conditions (not mental disorders or infectious disease) (16 sources)Encounter for screening for malignant neoplasm of prostate; Translations: [Screening for malignant neoplasm done]Onset: 55-71-8425Ffszzgrf Comment on above:PSA: 0.67 - 11/2022, 0.7 - 11/2023Other upper respiratory infections (1 source)Acute maxillary sinusitis, unspecifiedEpisodicResidual codes; unclassified (17 sources)Obstructive sleep apnea syndrome; Translations: [Obstructive sleep apnea (adult) (pediatric)]43-13-8755LynldiwYtnvmhqu codes; unclassified (2 sources)Obstructive sleep apnea (adult) (pediatric); Translations: [Obstructive sleep apnea (adult)(pediatric)]Onset: 02-22-2021 Resolved: 99-82-5884FngyhthTngfpxer codes; unclassified (1 source)Obstructive sleep apnea (adult)(pediatric); Translations: [Obstructive sleep apnea (adult) (pediatric)]Onset: 01-28-9470MquxvuaPgacrppk codes; unclassified (11 sources)Insomnia; Translations: [Insomnia, unspecified]EpisodicSkin and subcutaneous tissue infections (20 sources)Cellulitis and abscess of toe; Translations: [Cellulitis, toe] EpisodicUnclassified (8 sources)Patient encounter vuposd94-60-0854Ecfjy infection (1 source)Disease caused by 2019-nCoV; Translations: [COVID-19]01-15-2020 Episodic Past or Other Problems Problem ClassificationProblemDateDocumented DateEpisodic/ChronicEsophageal disorders (2 sources)Esophageal disorders; Translations: [Gastro-esophageal reflux disease with esophagitis, without bleeding]Joint disorders and dislocations; trauma-related (3 sources)Acute tear of medial meniscus of right knee; Translations: [Other tear of medial meniscus, current injury, right knee, initial encounter]Onset: 413601-67-8840NdxrfsryKlktawuf codes; unclassified (1 source)Insomnia, unspecifiedOnset: 02-22-2021 Resolved: 14-17-3417Oounaspq Results Test NameValueInterpretationReference RangeFacilityReminderson 12-15-2024 RemindersReminders From: Erum Whittaker To: NADINE Chau; Sent: 12/15/2024 14:35:08 EDT Show up: 10/20/2025 14:34:00 EDT Subject: cysto/UD Due Date/Time: 11/16/2025 14:35:00 EDT Reminder/Recall Patient is due in Jan 2026 for 1 year cysto/UDNoOhioHealth Patient Letter FTon [id number] Letter FTPatient Letter [facility] [place] [phone] : 1955 Dear Mr. Oswaldo Davies, [facility], Dr. Morillo's office, has been trying to reach you concerning scheduling your nextCystoscopy (bladder scope) and urethral dilation. Please call the office so we can coordinate this procedure with you, and continue to provide you with quality care. Sincerely, Lorenzo Chau M.D., F.A.C.S. [facility] [address] [place] [address] , option #3[facility] HospitalBasic Metabolic Panel on 63-93-8057Qcwdi gap [Moles/Vol]10.0 mmol/[employer] Other Calcium [Mass/Vol]9.6743396 mg/dLNormal8.5-10.1 mg/dL [facility] Other Chloride [Moles/Vol]100 mmol/UVqkhtc62-439 mmol/[employer] Other CO2 [Moles/Vol]30.59039250 mmol/DJfasdq84.0-32.0 mmol/[employer] Other Creatinine [Mass/Vol]1.72151607 mg/dLNormal0.70-1.30 mg/dL3CI Other Glucose [Mass/Vol]127 mg/pXVhgj68-041 mg/dL3CI Other Potassium [Moles/Vol]3.05736741 mmol/LNormal3.5-5.1 mmol/LNkindred hospital [facility]J[employer] Other Sodium [Moles/Vol]137 mmol/PXmxptd983-588 mmol/LNkindred hospital iJukebox Other Urea nitrogen [Mass/Vol]19.2377849 mg/dLHigh7.0-18.0 mg/dLColumbus iJ[employer] Other Urea nitrogen/Creatinine [Mass ratio]14.6 mg/mgColumbus iJuke[employer] Other Basic Metabolic Panelsee noteColumbus iJuke[employer] Other Basic Metabolic Smhsb41Xfm>=60[facility] [employer] Other Basic Metabolic Panel>60>=60[place] [employer] Other PSA SCREENINGon 53-52-4397PMJ SCREENING0.67 ng/mL <=4.00 ng/mLNkindred hospital iJukebox Other UA RANDOM W/MICROSCOPICon 40-13-8032Tlisycs (U)CLEAR CLEARColumbus iJukebox Other Color (U)LT. YELLOWYELLOWColumbus i[employer] Other Ketones Ql (U)NegativeNEGATIVE mg/dLColumbus [employer] Other Leukocyte esterase Test strip Ql (U)NegativeNEGATIVE [place] [employer] Other pH (U)7.0 [pH]5.0-9.0[place] [employer] Other UA RANDOM W/MICROSCOPIC0-2 #/HPF0-2 #/HPFColumbus [employer] Other ua RANDOM W/MICROSCOPIC1.0201.005-1.025[place] [employer] Other UA RANDOM W/MICROSCOPICNegativeNEGATIVEColumbus [employer] Other ua RANDOM W/MICROSCOPIC0.2 EU/dL0.2-1.0 EU/dLNoPeerby Other ua RANDOM W/MICROSCOPICTRACE #/HPFAbnormalNONE SEEN #/HPF3CI Other ua RANDOM W/MICROSCOPICNONE SEENNONE SEENColumbus i[employer] Other ua RANDOM W/MICROSCOPICRARE #/LPFNONE/RARE #/LPFPeerby Other ua RANDOM W/MICROSCOPICNone Seen #/HPFNone Seen #/HPF [facility] Other ua RANDOM W/MICROSCOPICNONE SEEN #/LPFNONE SEEN #/LPF 3[facility] Other ua RANDOM W/MICROSCOPICNONorth [employer] Other CNOVon 52-89-1638MRLACqtwxw Visit (CARDAV) DAVIESMARLO ESQUIVEL ([id number]) 1955 M Date Time Provider Department 03/17/22 [...] Yes, Claudication:No CONDITIONS: Hypertension: Yes, Heart failure:No, [place] [employer] Functional Classification: Class I, Atrial [...] pacemaker/ICD:No, Median sternotomy scar:No, Sternal instability:No CARDIAC: [place] beat not localized, Cardiac thrill:No, Heart rate normal:Yes, Heart rhythm normal:Yes, S1 normal:Yes, S2 normal:Yes, S3 ausculated:No, S4 ausculated:No, Gallop ausculated:No, Heart murmur:No, Prosthetic valve click:No, Pericardial friction rub:No ABDOMINAL:Abdomen soft, non-tender. BS normal. No masses or organomegaly. and positive findings: Morbid obese VASCULAR/EXTREMITIES:Radial p (more content not included)...NormalAvita Health System Bucyrus HospitalURINALYSISOrdered By: Chelsi Garrett on 75-41-4059Kotsdltfe Ql (U)Negative (03/01/22 12:03 PM)NormalNegativeMER[facility] [place] Auto SSClarity (U)Clear (03/01/22 12:03 PM)NormalClearFNORTHWEST CENTER FOR [facility] UA Auto SSColor (U)Yellow (03/01/22 12:03 PM)NormalYellowMERCY HOS[facility] [place] [facility] Auto SSCrystals LM Ql (Urine sed)Present 1 (03/01/22 12:03 PM)NormalMERCY HOSP[facility] [place] [facility] Auto SSComment on above:Result Comment: trace Epithelial cells.squamous LM.HPF (Urine sed) [#/Area]0-2 /HPFNormal0-2/HPFMERCY HOSP[facility] [place] [facility] Auto SSGlucose Test strip (U) [Mass/Vol]Negative (03/01/22 12:03 PM)NormalNegativeMER[facility]OS[facility] [place] [facility] Auto SSHemoglobin Ql (U)Trace *ABN* (03/01/22 12:03 PM)Invalid Interpretation CodeNegativeMERCY HOS[facility] [place] [facility] Auto SSKetones (U) [Mass/Vol]Negative (03/01/22 12:03 PM)NormalNegativeMERCY HOS[facility] [place] [facility] Auto SSLithium.plasma/[place].RBC (Bld) [Mass ratio]0-3 /HPFNormal0-3/HPFMERCY HOSPITAL [facility] [place] [facility] Auto SSNitrite Ql (U)Negative (03/01/22 12:03 PM)NormalNegativeMER[facility]OS[facility] [place] [facility] Auto SSpH (U)6.0 *NA* (03/01/22 12:03 PM)Invalid Interpretation Code5.0 - 9.0[facility] Auto SSProtein (U) [Mass/Vol]Negative (03/01/22 12:03 PM)NormalNegativeMERCY HOS[facility] [place] [facility] Auto SSSpecific gravity (U) [Rel density]1.020 *NA* (03/01/22 12:03 PM)Invalid Interpretation Code1.005 - 1.030[facility] Auto SSUA Spec DescClean Catch (03/01/22 12:03 PM)NormalMERCY HOSPITAL [facility] [place] [facility] Auto SSUrobilinogen Qn (U)0.9573959 {Dilma'U}/dLNormal0.0 - 1.0 EU/dLMERCY HOSPITAL [facility] [place] [facility] Auto SSWBC Auto Ql (U)Negative (03/01/22 12:03 PM)NormalNegativeMERCY [facility]OS[facility] [place] [facility] Auto SSWBC LM.HPF (Urine sed) [#/Area]0- 5 /HPFNormal0-5/HPFMERCY HOSPITAL [facility] [place] [facility] Auto SSCBC AUTO DIFFon 69-34-6040WLGD #0.1 103/ul Normal0.0-0.1The [facility] CenterComment on above:Performed By: #### CBC #### [facility] [address] [place] [address] Dr. Jorge Luis GaliciaBasophils/100 WBC (Bld)0.9 %Normal0.2-2.0[facility] Comment on above:Performed By: #### CBC #### [facility] [address] [place] [address] Dr. Jorge Luis Cavanaugh #0.1 103/ulNormal0.0-0.7The [facility] CenterComment on above: Performed By: #### CBC #### [facility] [address] [place] [address] Dr. Jorge Luis Gloverosinophils/100 WBC (Bld)1.4 %Normal0.9-7.0[facility] Comment on above:Performed By: #### CBC #### [facility] [address] [place] [address] Dr. Jorge Luis Gloverrythrocyte distribution width (RBC) [Ratio]13.1 %Vrieyk71.0-15.0 [facility] TownshipComment on above:Performed By: #### CBC #### [facility] [address] [place] [address] Dr. Jorge Luis GaliciaHematocrit (Bld) [Volume fraction]40.0 %Critically low42.0-54.0 The [facility] CenterComment on above:Performed By: #### CBC #### [facility] [address] [place] [address] Dr. Jorge Luis GaliciaHemoglobin (Bld) [Mass/Vol]13.6 g/dLCritically low14.0-18.0The [facility] CenterComment on above:Performed By: #### CBC #### [facility] [address] [place] [address] Dr. Jorge Luis Chapin #0.02 10e3/ulNormal0.00-0.03The [facility] CenterComment on above:Performed By: #### CBC #### [facility] [address] [place] [address] Dr. Jorge Luis Chapin %0.4 %Normal0.0-0.5The [facility] CenterComment on above: Performed By: #### CBC #### [facility] [address] [place] [address] Dr. Jorge Luis Kamara #1.7 103/ulNormal1.2-3.8The [facility] CenterComment on above:Performed By: #### CBC #### [facility] [address] [place] [address] Dr. Jorge Luis Larosehocytes/100 WBC (Bld)30.3 %Jtphcx11.5-60.0The [facility] CenterComment on above:Performed By: #### CBC #### [facility] [address] [place] [address] Dr. Jorge Luis EatonUAL DIFF REQNONormalThe [facility] CenterComment on above: Performed By: #### CBC #### [facility] [address] [place] [address] Dr. Jorge Luis Márquez (RBC) [Entitic mass]29.7 jnSjjxuw94.9-34.0The [facility] CenterComment on above:Performed By: #### CBC #### [facility] [address] [place] [address] Dr. Jorge Luis Alves (RBC) [Mass/Vol]34.0 g/pXQtjdmy15.9-35.2The [facility] CenterComment on above:Performed By: #### CBC #### [facility] [address] [place] [address] Dr. Jorge Luis Alves (RBC) [Entitic vol]87.3 sFRnhvlv36.0-94.0The [facility] CenterComment on above:Performed By: #### CBC #### [facility] [address] [place] [address] Dr. Jorge Luis Mcclure #0.5 103/ulNormal0.3-0.8The [facility] CenterComment on above:Performed By: #### CBC #### [facility] [address] [place] [address] Dr. Jorge Luis Cruzocytes/100 WBC (Bld)9.3 %Normal1.7-12.0[facility] Comment on above:Performed By: #### CBC #### [facility] [address] [place] [address] Dr. Jorge Luis Harris #3.2 103/ulNormal1.4-6.5The [facility] CenterComment on above:Performed By: #### CBC #### [facility] [address] [place] [address] Dr. Jorge Luis Shipleyutrophils/100 WBC (Bld)57.7 %Thiovs99.0-75.0The [facility] CenterComment on above:Performed By: #### CBC #### [facility] [address] [place] [address] Dr. Jorge Luis Winklerlet mean volume (Bld) [Entitic vol]9.7 fLNormal9.5-13.5The [facility] CenterComment on above:Performed By: #### CBC #### [facility] [address] [place] [address] Dr. Jorge Luis GaliciaPLT222 103/adShxusd077-377Afz [facility] CenterComment on above: Performed By: #### CBC #### [facility] [address] [place] [address] Dr. Jorge Luis GaliciaRBC4.58 106/ulCritically low4.70-6.10The [facility] CenterComment on above:Performed By: #### CBC #### [facility] [address] [place] [address] Dr. Jorge Luis GaliciaWBC5.6 103/ulNormal4.0-11.0The [facility] CenterComment on above: Performed By: #### CBC #### [facility] [address] [place] [address] Dr. Jorge Luis Sandy AND TIBCon 01-31-2022% ELYXBOQZSL64.6 %NormalThe [facility] Medical CenterComment on above:Performed By: #### FETIBC, B12FOL #### [facility] [address] [place] [address] Dr. Jorge Luis Sandy [Mass/Vol]71.0 ug/jJOjnzfv79.0-175.0The [facility] Comment on above:Performed By: #### FETIBC, B12FOL #### [facility] [address] [place] [address] Dr. Jorge Luis ValdezC SJQDYT960.0 ug/cCQqfzeb184.0-450.0The [facility] Comment on above:Performed By: #### FETIBC, B12FOL #### [facility] [address] [place] [address] Dr. Jorge Luis Jain B12 AND FOLATEon 60-51-3308Angmwjxfi (Vitamin B12) [Mass/Vol] 465.0 pg/kIDpynsk371.0-986.0The [facility] CenterComment on above:Performed By: #### FETIBWilfred, B12FOL #### [facility] [address] [place] [address] Dr. Jorge Luis GaliciaFOLATE21.20 ng/mLNormal8.60-58.90[facility] TownshipComment on above:Performed By: #### FETIBWilfred, B12FOL #### [facility] [address] [place] [address] Dr. Jorge Luis Venegas CARDIAC PERF STRESS/EXERCISEon [id number] CARDIAC PERF STRESS/EXERCISE* * *Final Report* * * DATE OF EXAM: Jan 18 2022 3:00PM AFN 0004 - NM CARDIAC PERF STRESS/EXERCISE / PROCEDURE REASON: chest pain, referal * * * * Physician Interpretation * * * * Stress Materials Coordinator Report: [facility] Date of service: 01/18/2022 1:11:51 [...] 60 minutes later. See administered doses below. [facility] Date of service: 01/18/2022 1:11:51 [...] unchanged with stress. Final Stress ECG Report: [facility] Date of service: 01/18/2022 1:11:51 PM Ordering physician: AURE PIPER document review specialist: Marsha Sadler RN Interpreting physician: Alexander [...] 140/72 mmHg. The double product achieved was [id number]. Medications: Last Used AMLODIPINE Resting ECG: Normal Sinus Rhythm Symptoms at rest: No symptoms Pharamcologic Protocol: Regadenoson Stress Exercise Table: +------+ +---+---+---+ Stage Time (min) HR SYS VENKAT +------+ +---+---+---+ 1 1.0 96 146 82 +------+ +---+---+---+ 2 2.0 100 140 72 +------+ +---+---+---+ 3 3.0 95 148 80 +------+ +---+---+---+ 4 4.0 94 136 78 +------+ +---+---+---+ +-----+---+---+---+ (more content not included)...NormalAv[facility] AUTO DIFFon [id number] #0.1 103/ulNormal0.0-0.1[facility] TownshipComment on above: Performed By: #### CBC #### [facility] [address] [place] [address] Dr. Jorge Luis Schroedersophils/100 WBC (Bld)0.9 %Normal0.2-2.0[facility] Comment on above:Performed By: #### CBC #### [facility] [address] [address] [address] Jorge Luis Cavanaugh #0.1 103/ulNormal0.0-0.7The [facility] CenterComment on above: Performed By: #### CBC #### [facility] [address] [address] [address] Jorge Luis Gloverosinophils/100 WBC (Bld)1.4 %Normal0.9-7.0[facility] Comment on above:Performed By: #### CBC #### [facility] [address] [place] [address] Dr. Jorge Luis Gloverrythrocyte distribution width (RBC) [Ratio]13.2 %Jtafeo32.0-15.0 [facility] TownshipComment on above:Performed By: #### CBC #### [facility] [address] [place] [address] Dr. Jorge Luis GaliciaHematocrit (Bld) [Volume fraction]40.4 %Critically low42.0-54.0 The [facility] Medical CenterComment on above:Performed By: #### CBC #### [facility] [address] [place] [address] Dr. Jorge Luis GaliciaHemoglobin (Bld) [Mass/Vol]13.5 g/dLCritically low14.0-18.0The [facility] CenterComment on above:Performed By: #### CBC #### [facility] [address] [place] [address] Dr. Jorge Luis Chapin #0.02 10e3/ulNormal0.00-0.03The [facility] CenterComment on above:Performed By: #### CBC #### [facility] [address] [place] [address] Dr. Jorge Luis Chapin %0.3 %Normal0.0-0.5The [facility] Hospitalment on above: Performed By: #### CBC #### [facility] [address] [place] [address] Dr. Jorge Luis Kamara #1.5 103/ulNormal1.2-3.8The [facility] CenterComment on above:Performed By: #### CBC #### [facility] [address] [place] [address] Dr. Jorge Luis Larosehocytes/100 WBC (Bld)26.3 %Mxrfwb74.5-60.0[facility] Hospitalment on above:Performed By: #### CBC #### [facility] [address] [place] [address] Dr. Jorge Luis EatonUAL DIFF REQNONormalThe [facility] CenterComment on above: Performed By: #### CBC #### [facility] [address] [place] [address] Dr. Jorge Luis Alves (RBC) [Entitic mass]30.1 wwOgbnit55.9-34.0The [facility] CenterComment on above:Performed By: #### CBC #### [facility] [address] [place] [address] Dr. Jorge Luis Alves (RBC) [Mass/Vol]33.4 g/uWPcwqye13.9-35.2The [facility] CenterComment on above:Performed By: #### CBC #### [facility] [address] [place] [address] Dr. Jorge Luis Alves (RBC) [Entitic vol]90.0 qGNxheko00.0-94.0The [facility] CenterComment on above:Performed By: #### CBC #### [facility] [address] [place] [address] Dr. Jorge Luis Mcclure #0.5 103/ulNormal0.3-0.8The [facility] CenterComment on above:Performed By: #### CBC #### [facility] [address] [place] [address] Dr. Jorge Luis Cruzocytes/100 WBC (Bld)9.2 %Normal1.7-12.0The [facility] Comment on above:Performed By: #### CBC #### [facility] [address] [place] [address] Dr. Jorge Luis Harris #3.6 103/ulNormal1.4-6.5The [facility] CenterComment on above:Performed By: #### CBC #### [facility] [address] [place] [address] Dr. Jorge Luis Shipleyutrophils/100 WBC (Bld)61.9 %Stsdwq16.0-75.0The [facility] CenterComment on above:Performed By: #### CBC #### [facility] [address] [place] [address] Dr. Yilan ChangPlatelet mean volume (Bld) [Entitic vol]9.7 fLNormal9.5-13.5The [facility] CenterComment on above:Performed By: #### CBC #### [facility] [address] [place] [address] Dr. Jorge Luis GaliciaPLT170 103/urGbiety054-938Rga [facility] CenterComment on above: Performed By: #### CBC #### [facility] [address] [place] [address] Dr. Jorge Luis GaliciaRBC4.49 106/ulCritically low4.70-6.10The [facility] CenterComment on above:Performed By: #### CBC #### [facility] [address] [place] [address] Dr. Jorge Luis GaliciaWBC5.7 103/ulNormal4.0-11.0The [facility] CenterComment on above: Performed By: #### CBC #### [facility] [address] [place] [address] Dr. Jorge Luis GaliciaGLYCOHEMOGLOBIN A1Con [id number] RECOMMENDATIONSEE BELOWCleveland ClinicComment on above:Result Comment: ADA RECOMMENDED LIMIT 4.0 - 6.0 ADA THERAPEUTIC TARGET < 7.0 ACTION SUGGESTED > 7.0Performed By: #### A1C #### [facility] [address] [place] [address] Dr. Jorge Luis GaliciaGlucose [Mass/Vol]126 mg/dLNoAvita Health System Ontario HospitalComment on above:Performed By: #### A1C #### [facility] [address] [place] [address] Dr. Jorge Luis GaliciaHbA1c (Bld) [Mass fraction]6.0 %Normal4.5-6.2The [facility] Medical CenterComment on above:Performed By: #### A1C #### [facility] [address] [place] [address] Dr. Jorge Luis GaliciaLIPID PROFILEon [id number]-HDL RATIO NORMSEE BELOWGood Samaritan HospitalComuniversity of michigan health on above:Result Comment: 3.3 - 4.4 LOW RISK 4.4 - 7.1 AVERAGE RISK 7.1 - 11.0 MODERATE RISK >11.0 HIGH RISKPerformed By: #### LIPID, BMP #### [facility] [address] [place] [address] Dr. Jorge Luis GaliciaCholesterol [Mass/Vol]198 mg/dLNormal<=200[facility] Comment on above:Performed By: #### LIPID, BMP #### [facility] [address] [place] [address] Dr. Jorge Luis GaliciaCholesterol in HDL [Mass/Vol]62 mg/dLCritically ofpv22-38YglKettering Health Washington TownshipComment on above:Performed By: #### LIPID, BMP #### [facility] [address] [place] [address] Dr. Jorge Luis GaliciaCholesterol in LDL [Mass/Vol]110.6 mg/dLGood Samaritan HospitalComment on above:Performed By: #### LIPID, BMP #### [facility] [address] [place] [address] Dr. Jorge Luis Greenfieldesterjeanna.total/Cholesterol in HDL [Mass ratio]3.2 {ratio} NormalKettering Health Washington TownshipComment on above:Performed By: #### LIPID, BMP #### [facility] [address] [place] [address] Dr. Jorge Luis Mccray NORMAL> or = 60 mg/dl - LOW CARDIOVASCULAR RISK <40 mg/dl - HIGH CARDIOVASCULAR RISKGood Samaritan HospitalComment on above:Performed By: #### LIPID, BMP #### [facility] [address] [place] [address] Dr. Jorge Luis GaliciaLDL CALC NORMALSEE BELOWGood Samaritan HospitalComment on above:Result Comment: <100 mg/dl OPTIMAL 100 - 129 mg/dl NEAR OR ABOVE OPTIMAL 130 - 159 mg/dl BORDERLINE HIGH 160 - 189 mg/dl HIGH >190 mg/dl VERY HIGH Performed By: #### LIPID, BMP #### [facility] [address] [place] [address] Dr. Jorge Luis GaliciaTriglyceride [Mass/Vol]127 mg/dLNormal<=150[facility] Comment on above:Performed By: #### LIPID, BMP #### [facility] [address] [address] [address] Jorge Luis GaliciaVLDL CALC25.4 mg/dLNormalThe [facility] CenterComment on above: Performed By: #### LIPID, BMP #### [facility] [address] [address] [address] Jorge Luis GaliciaPROF CHEM 8 (BAS METB)on 89-39-0071Msaky gap [Moles/Vol]11.5 mmol/LNormalThe [facility] CenterComment on above:Performed By: #### LIPID, BMP #### [facility] [address] [address] [address] Jorge Luis GaliciaCalcium [Mass/Vol]8.9 mg/dLNormal8.5-10.1[facility] Comment on above:Performed By: #### LIPID, BMP #### [facility] [address] [address] [address] Jorge Luis GaliciaChloride [Moles/Vol]102 mmol/AKaowua77-765CmqKettering Health Washington Township Comment on above:Performed By: #### LIPID, BMP #### [facility] [address] [place] [address] Dr. Jorge Luis GaliciaCO2 [Moles/Vol]29.5 mmol/GBqryzv21.0-32.0[facility] Comment on above:Performed By: #### LIPID, BMP #### [facility] [address] [place] [address] Dr. Jorge Luis GaliciaCreatinine [Mass/Vol]0.98 mg/dLNormal0.70-1.30The [facility] CenterComment on above:Performed By: #### LIPID, BMP #### [facility] [address] [place] [address] Dr. Jorge Luis GloverGFR-AF MONEGASQUE>60Normal>=60The [facility] CenterComment on above:Performed By: #### LIPID, BMP #### [facility] [address] [address] [address] Jorge Luis GloverGFR-NON AF MONEGASQUE>60Normal>=60The [facility] CenterComment on above:Performed By: #### LIPID, BMP #### [facility] [address] [address] [address] Jorge Luis GaliciaGlucose [Mass/Vol]113 mg/dLCritically vozp00-223Wlw [facility] CenterComment on above:Performed By: #### LIPID, BMP #### [facility] [address] [address] [address] Jorge Luis GaliciaPotassium [Moles/Vol]4.0 mmol/LNormal3.5-5.1[facility] Comment on above:Performed By: #### LIPID, BMP #### [facility] [address] [place] [address] Dr. Jorge Luis GaliciaSodium [Moles/Vol]139 mmol/SKmdcpu450-061ZbxKettering Health Washington Township Comment on above:Performed By: #### LIPID, BMP #### [facility] [address] [place] [address] Dr. Jorge Luis GaliciaUrea nitrogen [Mass/Vol]21.0 mg/dLCritically high7.0-18.0The [facility] CenterComment on above:Performed By: #### LIPID, BMP #### [facility] [address] [place] [address] Dr. Jorge Luis Whitman nitrogen/Creatinine [Mass ratio]21.4 mg/mgNormalThe [facility] CenterComment on above:Performed By: #### LIPID, BMP #### [facility] [address] [place] [address] Dr. Jorge Luis Mcfarlane [facility] [id number] HEALTHHNO ID: [id number] Author: Velasquez Daley Service: Radiology Author Type: [...] IV DATA: Not applicable SIGNED BY: Velasquez aDley August 13, 2018 9:02 [facility]MRI [facility] RTon 08-13-2018 MRI KNEE WO IVCON RT* * *Final Report* * * DATE OF [...] the medial meniscus. Patellofemoral arthrosis. Small effusion. Critical Care Nurse Specialist: MARQUEZ Transcribe Date/Time: Aug 13 2018 1:38P Dictated by : ADI TRAVIS MD This examination was interpreted and the report reviewed and electronically signed by: ADI TRAVIS MD on Aug 13 2018 1:40PM EST [id number] County Hospital Vital Signs Date TimeVital SignValuePerforming ApdfdrdymBejboghe57-48-9589 08:41-0400Body pocban009.72 cmBenjamin Ball DO Work Phone: [facility]10-30-2025 08:41-0400 Body mass index (BMI) [Ratio]42.1 kg/f6Iglfafki Ball DO Work Phone: [facility]10-30-2025 08:41-0400 Body faksno723.64 kgBenjamin Ball DO Work Phone: [phone]10-30-2025 08:41-0400 Diastolic blood arvmabtt12 mm[Hg]Jairo Ball DO Work Phone: [phone] [place], [place] 3383910-30-2025 08:41-0400 Heart rate90 /minBenjamin Ball DO Work Phone: [phone])[phone] [place], [place] 3383910-30-2025 08:41-0400 Respiratory rate18 /minBenjamin Ball DO Work Phone: [phone]10-30-2025 08:41-0400 SaO2% (BldA) [Mass fraction]97 %Jairo Ball DO Work Phone: [phone]10-30-2025 08:41-0400 Systolic blood craegchc435 mm[Hg]Jairo Ball DO Work Phone: [phone] [place], [place] 3303210-17-2025 09:35-0400 Body mexdhi738.72 cmTaylor Dackin PA-COrthoAlliance of Fikc39-31-1207 09:35-0400 Body mass index (BMI) [Ratio]39.83 kg/m5Sgbmub Dackin PA-COrthoAlliance of [place] 12-05-2024 09:35-0400Body mzmuzw896.84 kgTaylor Dackin PA-COrthoAlliance of [place] 11-21-2024 10:54-0400Body qvekoi793.72 cmBenjamin Ball DO Work Phone: [phone] [place], [place] 338[address]10-03-2025 10:54-0400 Body mass index (BMI) [Ratio]41.7 kg/t4Itekbiqm Ball DO Work Phone: [phone])[facility] [place], [place] 338[address]10-03-2025 10:54-0400 Body swsiqj018.51 kgBenjamin Ball DO Work Phone: [phone] [place], [place] 3383910-03-2025 10:54-0400 Diastolic blood vdwniyqp69 mm[Hg]Jairo Ball DO Work Phone: [phone])218-[address] [place], [place] 3383910-03-2025 10:54-0400 Heart rate90 /minBenjamin Ball DO Work Phone: [phone] [place], [place] 3383910-03-2025 10:54-0400 Respiratory rate12 /minBenjamin Ball DO Work Phone: [phone] [place], [place] 3383910-03-2025 10:54-0400 Systolic blood iyejlodu020 mm[Hg]Jairo Ball DO Work Phone: 1(374)[facility] [place], [place] 3383906-30-2025 13:47-0400 Body afrqjc588.72 cmBenjamin Ball DO Work Phone: [phone] [place], [place] 3303206-30-2025 13:47-0400 Body mass index (BMI) [Ratio]42.7 kg/q1Jesorkmj Ball DO Work Phone: [phone])[address] [place], [place] 3303206-30-2025 13:47-0400 Body ebfjqs070.51 kgBenjamin Ball DO Work Phone: [phone])[address] [place], [place] 3303206-30-2025 13:47-0400 Diastolic blood nvkeboyk12 mm[Hg]Jairo Ball DO Work Phone: 1(380)[facility] [place], [place] 338[address]06-30-2025 13:47-0400 Heart rate82 /minBenjamin Ball DO Work Phone: 1(257)[facility] [place], [place] 338[address]06-30-2025 13:47-0400 Respiratory rate12 /minBenjamin Ball DO Work Phone: 1(254)[facility] [place], [place] 3383906-30-2025 13:47-0400 Systolic blood mm[Hg]Jairo Ball DO Work Phone: 1(280)[facility] [place], [place] 338[address]11-04-2024 12:28-0500 Blood Pressure Zaheer CHAU [facility]11-04-2024 12:28-0500Body rdjlhucuvqz18.6 [degF]Lorenzotenzin CHAU [facility]11-04-2024 12:28-0500Diastolic blood thwuxnzu79 mm[Hg]Lorenzo CHAU [facility]11-04-2024 12:28-0500Heart rate76 /minPatrick CHAU [facility]11-04-2024 12:28-0500Respiratory rate16 /minPatrick CHAU [facility]11-04-2024 12:28-0500Systolic blood zxqpugit970 mm[Hg]Lorenzo CHAU [facility]10-29-2024 08:33-0400Body .72 cm[facility]10-29-2024 08:33-0400Body mass index (BMI) [Ratio]39.8 kg/a0CjmmtgofcSelect Medical [facility]10-29-2024 08:33-0400Body wymiei335.89 [facility]10-29-2024 08:33-0400Diastolic blood vgcsuqog84 mm[Hg] [facility]10-29-2024 08:33-0400Heart rate86 /[facility]10-29-2024 08:33-0400Respiratory rate12 /[facility]10-29-2024 08:33-0400Systolic blood urbperii671 mm[Hg] [facility]08-08-2024 11:37-0400Body vxbabc119.72 cm [facility]08-08-2024 11:37-0400Body mass index (BMI) [Ratio]39.2 kg/r8SvsajiqcaSelect Medical [facility]08-08-2024 11:37-0400Body zkmekc509.02 [facility]04-03-2024 08:35-0400Blood Pressure LocationPatrick CHAU [facility]04-03-2024 08:35-0400Body weeuepgsnof23.16 [degF]Lorenzo CHAU [facility]04-03-2024 08:35-0400Diastolic blood betugohs96 mm[Hg]Lorenzo CHAU [facility] [place] [address]-03-2024 08:35-0400Heart rate79 /minPatrick CHAU [facility] [place] [address]-03-2024 08:35-0400Respiratory rate16 /minPatrick CHAU [facility]04-03-2024 08:35-0400Systolic blood iicacanj396 mm[Hg]Lorenzo CHAU [facility] [place] 646101-14-2023 11:27-0500Blood Pressure LocationPadeaconess hospitaldeana CHAU [facility] [place] 646101-14-2023 11:27-0500Diastolic blood jeqhqjsk88 mm[Hg]Lorenzo CHAU [facility] [place] 646101-14-2023 11:27-0500Systolic blood ryaplfku861 mm[Hg]Lorenzo CHAU [facility] [place] 646100-25-2023 13:30-0400Body jcfdul344.72 cmBenjamin [employer] Other [employer] Other 10-25-2023 13:30-0400Body mass index (BMI) [Ratio] 40.05 kg/c5Ucxttehv Ball Other [employer] Other 10-25-2023 13:30-0400Body rogath653.48 kgBenjamin Ball Other [employer] Other 10-25-2023 13:30-0400Diastolic blood gjoyynhl45 mm[Hg] Jairo Ball [facility] [employer] Other 10-25-2023 13:30-0400Respiratory rate12 /minBenjamin Ball Other [facility] [employer] Other 10-25-2023 13:30-0400Systolic blood unouujqt188 mm[Hg] Jairo Ball Other [place] [employer] Other 01-27-2023 09:06-0500Body .7 cmAure Piper MD Work Phone: [facility]01-27-2023 09:06-0500Body ylcshq145.11 kgAure Piper MD Work Phone: [facility]01-27-2023 09:06-0500Diastolic blood ojatdwex28 mm[Hg]Aure Piper MD Work Phone: [facility]01-27-2023 09:06-0500Heart rate84 /min Aure Piper MD Work Phone: [facility]01-27-2023 09:06-0500Systolic blood mxvuyoep567 mm[Hg]Aure Piper MD Work Phone: [facility]01-26-2023 09:30-0500Body pzfudn385.72 cmBenjamin Ball Other [facility] [employer] Other 01-26-2023 09:30-0500Body mass index (BMI) [Ratio] 41.38 kg/m0Aojnokun Ball Other [place] Other 01-26-2023 09:30-0500Body slazuadiwri17.8 [degF] Jairo Moe Other [employer] Other 01-26-2023 09:30-0500Body lmliap381.47 kgBenkamar Moe Other [employer] Other 01-26-2023 09:30-0500Diastolic blood mm[Hg] Jairo Moe Other [employer] Other 01-26-2023 09:30-7466DkS1% (BldA) [Mass fraction]98 % Jairo Moe Other [employer] Other 01-26-2023 09:30-0500Systolic blood droiurfl120 mm[Hg] Jairo Meo Other [employer] Other 01-11-2023 08:09-0500Blood Pressure LocationLannette ClemonsExec[facility]01-11-2023 08:09-0500Diastolic blood ezfosucw28 mm[Hg]Lannette ClemonsExec[facility]01-11-2023 08:09-0500Heart rate80 /min Lannette ClemonsExec[facility] 03-01-2022 08:09-0500Systolic blood mkbxydio100 mm[Hg]Lannette ClemonsExec[facility]01-04-2022 09:30-0500Body height 172.72 cmEric Rose Other [employer] Other 01-04-2022 09:30-0500Body mass index (BMI) [Ratio] 40.29 kg/m4MsgbjEric Rose Other [employer] Other 01-04-2022 09:30-0500Body rzsokklyclz03.2 [degF]Eric Milton Other [employer] Other 01-04-2022 09:30-0500Body woqitf187.2 kgDaainsleymario alberto Rose Other [employer] Other 01-04-2022 09:30-0500Diastolic blood yaatfays65 mm[Hg] Eric Rose Other [employer] Other 01-04-2022 09:30-7033HvC3% (BldA) [Mass fraction]98 % Eric Milton Other [employer] Other 01-04-2022 09:30-0500Systolic blood ueyvzvih776 mm[Hg] Eric Milton Other [employer] Other Encounters Encounter DateEncounter TypeCare ProviderFacilityStart: 73-49-1692pihfbiwnrw Lorenzo Valenzuela WATERSFacility:CD:[id number]: 12-18-2024 End: 01-57-9662ppddvtrphzQfyptrsa Ball DO Work Phone: [facility]Start: 12-18-2024 End: 43-64-8334Lhuicqk encounter procedureBenjamin Ball DO-[facility] Work Phone: Start: 12-05-2024 End: 10-16-2803Mmietdffn identifierTaylor D Dackin Work Phone: J HuntingtonStart: 08-69-4927lvddiwymnmVpmkhegbx No [facility] OrthopedicsStart: 11-21-2024 End: 23-39-7032rrfydbriifTxxromlx Ball DO Work Phone: [facility] Work Phone: Start: 11-21-2024 End: 45-01-1699Isadelz encounter procedureBenkamar Moe DO-[facility] Work Phone: Start: 08-18-2024 End: 38-77-8817yklyvlxwvcXxvwkyhu Ball DO Work Phone: [facility] Work Phone: Start: 08-18-2024 End: 59-03-0137Dnktdzj encounter procedureBenkamar Moe DO-[facility] Work Phone: Start: 44-82-8625qugdwbkuxuUpzgzpi R WATERS Facility:CD:[id number]: 12-26-2023 End: 01-41-0347Epwcpvl encounter procedureLorenzo CHAU [facility] Start: 12-24-2023 End: 04-72-1876Scvrfup encounter procedureLorenzo CHAU [facility] start: 12-18-2023 End: 11-64-7624mcxxzgghapOruvqyoriMarymount Hospital Work Phone: Start: 12-18-2023 End: 05-76-6414Jhvqadp encounter procedureFormerly [facility] [facility] Work Phone: Start: 72-11-7619Mwryqij encounter procedureKnox Community Hospitaltart: 09-27-2023 End: 59-42-1067zcmftfibtpMajrmykvqMetroHealth [facility] Work Phone: Start: 09-27-2023 End: 54-34-4321Beyswuc encounter procedureFormerly [facility] [facility] Work Phone: Start: 05-23-2023 End: 56-77-2033Nvnhvtr encounter procedureLorenzo CHAU [facility] Start: 03-20-2023 End: 90-77-6950kdkrjikjmbLagvfbyp BallFacility:[facility] Start: 03-20-2023 End: 12-60-4073umyudsnqsyYF Jairo Ball Work Phone: [facility] Work Phone: Start: 03-20-2023 End: 10-34-7302Pibsjea encounter procedureDO Jairo Ball Work Phone: [facility] Work Phone: Start: 03-07-2023 End: 65-07-6923abxzijverwLdgkwtez Ball Other [employer] Other Start: 14-96-3164Adlslmaob encounterBenjamin BallFPG [facility] ClinicStart: 03-06-2023 End: 94-03-9786yrufiyuxzgWilsaubf Ball Other [employer] Other Start: 13-03-6062Dbntjwdvo encounterBenjamin BallFPG [facility] ClinicStart: 02-27-2023 End: 31-73-3704qzzuykbooyBpazllcu Ball Other [employer] Other Start: 88-87-4613Wsiuwwxdi encounterBenjamin BallFPG [facility] ClinicStart: 02-22-2023 End: 42-47-7942Qkbhvnf encounter procedureDO Jairo Ball Work Phone: [facility] Physician Group-[facility] Work Phone: Start: 01-10-2023 End: 89-64-1614gmvnrhiimmZxeicuqg Ball Other [employer] Other Start: 39-11-1729Yqhvekhyt encounterBenjamin BallFPG [facility] ClinicStart: 01-08-2023 End: 63-94-1404teexbhvrhyVgjugkvm Ball Other [email or web address] Other Start: 21-76-3474Kkgfrafxr encounterBenjamin BallFPG [facility] ClinicStart: 01-08-2023 End: 06-59-9245Wxflsny encounter procedurePatrick Bianca CHAU [facility] Start: 01-02-2023 End: 54-42-6860Tno Drop offPajuan Valenzuela [facility] Start: 01-02-2023 End: 51-69-2075Cwlsfij encounter procedurePatricdeana Valenzuela Thumb [facility] Start: 12-14-2022 End: 16-24-3341focyichaikVhbpmgol Ball Other [email or web address] Other Start: 71-74-0169Sddvvkyda encounterBenjamin BallFPG [facility] ClinicStart: 12-13-2022 End: 42-48-6240otwcsxpdndAyokrbrl Ball Other [email or web address] Other Start: 60-86-5046Hqturjk encounter procedureBenjamin BallFPG [facility] ClinicStart: 11-16-2022 End: 32-69-5321kgnqotbrdzPgmjveae Ball Other [email or web address] Other Start: 07-62-2902Tafixsivp encounterBenjamin BallFPG [facility] ClinicStart: 08-14-2022 End: 15-40-2006embjthjxiyLrjncaja Ball Other [employer] Other Start: 57-26-5488Vbthqfwlr encounterPremkamar Moe [facility] ClinicStart: 03-17-2022 End: 30-85-1647itrbebepkqRZJS E ANGELFacility:TriHealthtart: 03-17-2022 End: 06-51-9424Vqnxgqz encounter procedureAure Piper MD Work Phone: CardiologyComment on above:Dyspnea on exertion (Primary Dx); Morbid obesity with BMI of 40.0-44.9, adult (HCC)Start: 03-16-2022 End: 93-84-4067txganvmqwvXuiygirq Ball Other [employer] Other Start: 72-57-2878Uwgefm outpatient visit 25 minutes Jairo Zayda Moe [facility] ClinicStart: 03-01-2022 End: 64-27-4639Exe Drop Faviola Mcgill [facility] Start: 03-01-2022 End: 20-05-1263Uatgcva encounter procedureBarney Casasecutive [facility] Viki Start: 01-31-2022 End: 73-70-0348bghvwnrokoGIRachel Dunhamcility:J3Hozjz: 01-18-2022 End: 09-87-8640eutwgglgltCDCM E ANGELFacility:[facility] HospitalStart: 01-18-2022 End: 54-51-6970irjjsznenhOXZN E ANGELFacility:TriHealthtart: 01-18-2022 End: 11-49-1927Klzbezcxto hospital visit by physicianSjade Rosales [facility] Telly Work Phone: Nuclear MedicineComment on above:Other chest pain [R07.89]Start: 12-13-2021 End: 23-57-7519uscpxbxslwBIRayray Dunhamcility:P3Igfbz: 02-22-2021 End: 32-86-0920cqalcvzenfJtwdv Milton Other Nort [employer] Other Start: 96-61-3432Wpfhoj outpatient visit 25 minutes Eric RoseCleveland Clinic [facility] Procedures DateProcedureProcedure DetailPerforming ClinicianStart: 07-35-0874Dvdqcwxj of urethraPatrick Thumb Start: 97-13-5757Mwjvzqigjuvlogido with dilation of urethral stricturePatrick CHAU Start: 75-24-4238NTR screeningDR JAIRO BALLComment on above:Performed By: #### PSASC #### [facility] [address] [place] [address] Dr. Jorge Luis Yoo Plan of Treatment DateCare ActivityDetailAuthorStart: 45-77-9420Mnoyu microalbumin profile DTaP,Tdap,Td Vaccine (3 - Td or Tdap)[facility]: 44-41-0930POQNTTXN CANCER SCREENING DISCUSSIONPROSTATE CANCER SCREENING DISCUSSIONSumma Health [facility] Start: 04-94-8309Nengg-19 Vaccine ( season)Covid-19 Vaccine ( season)[facility]: 36-14-2161Mptttwgjt vaccinationInfluenza Vaccine (#1)[facility]: 22-40-6658OVNBXFQ DIRECTIVE DISCUSSIONADVANCE DIRECTIVE DISCUSSIONCleDiley Ridge Medical Centertart: 02-48-5619JCOMYNYIDT ASSESSMENT DEPRESSION ASSESSMENTCleDiley Ridge Medical Centertart: 40-01-9090Dzufbleoy vaccination INFLUENZA (#1)[facility]: 53-77-0052ZGENB-19 VACCINE (4 - Booster for Shey series)COVID-19 VACCINE (4 - Booster for Shey series)[facility]: 02-82-5075Rywilfvphuqh Vaccine: 65+ (1 - PCV)Pneumococcal Vaccine: 65+ (1 - PCV)[facility]: 65-59-6415VFVIYCOXCYYF: 65+ (1 - PCV) PNEUMOCOCCAL: 65+ (1 - PCV)[facility]: 11-95-3226WRI Vaccine (1 - 1- dose 60+ series)RSV Vaccine (1 - 1-dose 60+ series)[facility]: 00-22-4353QEHFLFTT VACCINE (1 of 2)SHINGRIX VACCINE (1 of 2)[facility] Start: 22-13-3895WBOXYAMIY (FIT-DNA)COLOGUARD (FIT-DNA)[facility]: 30-98-2910DziwtphhustKBRPPDEMXEQOovxosxde ClinicStart: 81-43-7818BNVLHRSECA CANCER SCREENINGCOLORECTAL CANCER SCREENINGWay[facility] HealthCare Main Campustart: 21-59-9014QW COLONOGRAPHYCT COLONOGRAPHYWayne HealthCare Main Campustart: 84-01-7098OTPWAWFF SCREEN DIABETES SCREENWayne HealthCare Main Campustart: 63-92-3103Hpzalwjr ScreeningDiabetes ScreeningWayne HealthCare Main Campustart: 53-53-9465SMKFJ OCCULT BLOODFECAL OCCULT BLOOD [facility]: 41-97-4912BXANJRJOKLNDRBAEDMCOFATVRAWbdxdxzlv Clinic Start: 81-40-7205Ffkqr 1996 panel - Serum or PlasmaLipid ScreeningWayne HealthCare Main Campustart: 31-95-8545QQLGP SCREENLIPID SCREENWayne HealthCare Main Campustart: 1972 Urine microalbumin profileDTAP,TDAP,TD (1 - Tdap)[facility]: 09-64-7946HSOUQIQUB C SCREENINGHEPATITIS C SCREENINGSum[facility] Health [facility] Comprehensive metabolic 1999 panel - Serum or PlasmaSelect Medical [facility] Rehabilitation HospitalComprehensive metabolic 1999 panel - Serum or PlasmaColumbia Miami Heart Institute Immunizations Immunization DateImmunizationNotesCare YdmoppocKicryziw44-66-1271cdezvio and diphtheria toxoids, adsorbed, preservative free, for adult use (5 Lf of tetanus toxoid and 2 Lf of diphtheria toxoid)Jairo Moe Other [facility]10-01-2021tetanus toxoid, reduced diphtheria toxoid, and acellular pertussis vaccine, adsorbed [facility] 84-53-1009WUEE-CoV-2 (COVID-19) mRNA-1273 vaccineLannette ClemonsExecutive [facility]rology of [facility] Hospitaly04-16-2021SARS-CoV-2 (COVID-19) mRNA-1273 vaccineLannette ClemonsExecutive [facility] of [facility] Hospitaly03-12-2021SARS-CoV-2 (COVID-19) Ad26 vaccine, recombinantLannette ClemonsExecutive [facility] of [facility] Hospitaly02-19-2021 SARS-CoV-2 (COVID-19) Ad26 vaccine, recombinantLannette ClemonsExecutive Urology of [facility] Hospitaly10-20-2020pneumococcal polysaccharide vaccine, 23 valentBenjamin Ball Other [facility]09-19-2012tetanus toxoid, reduced diphtheria toxoid, and acellular pertussis vaccine, adsorbed Eric Rose Other [facility] Payers DatePayer CategoryPayerPolicy [id number] [id number] MMO MEDICARE SUPPLEMENT [id number] 2019-Present [phone] [address] [place] [address] [id number] 2019MedicareMEDICARE MEDICARE A AND B [id number] 2018-Present [phone] [address] [address] [place] [address] [id number] [id number] [id number] [id number] [id number]-[id number] [id number] [id number]-[id number]-c4j8gb5rhn4a Social History DateTypeDetailFacilityStart: 01-27-2020 End: 81-69-0464Jpv [facility] Hospitaltart: 01-15-2020 End: 39-98-0691Iebhzxw smoking statusNever smoked tobacco (finding)[facility] SandcambriayTobacco smoking statusNever [facility] SandcambriayStart: 11-02-2017 Tobacco use and exposureSmokeless tobacco non-userWayne HealthCare Main Campustart: 80-13-6927Zex Assigned At BirthNot on fileWayne HealthCare Main Campustart: 01-27-2020 End: 86-88-8393Psyiqnx of Social functionWayne HealthCare Main Campustart: 01-08-2022 End: 03-45-9419Lbzizfbf to SARS-CoV-2 (event)Not sureSumma Health [facility] - [facility] Medical Center Work Phone: Start: 97-13-9019Eel Assigned At [facility] HospitalexMale (finding)[facility] Hospitaltart: 52-45-4160Djmdnhv smoking status NHISCurrent some day smokerOrthoAlliance of North CarolinaStart: 86-47-4509Wpsznio intakeAlcohol Use DetailsOrthoAlliance of [place] Start: 11-58-6367Nlzyght use and exposureNon-Smoking Tobacco Use Details [facility] CarolinaStart: 33-97-5692Yzgpcr OrientationChoose not to disclose [facility] CarolinaStart: 61-62-3041Jsriwbr smoking status NHISUnknown if ever smokedOrthoAlliance of [place] Functional Status NwktGzbxksfygxZtebfuMwmbcgkt98-03-0163Szlwmtaero StatusN/AExecutive [facility] of [facility] Centerue04-03-2024Functional StatusN/A[facility] [place] 646101-14-2023Functional StatusN/A [facility]01-11-2023Functional StatusN/A[facility] Clinical Notes 02-22-2021 to 12-19-2024 Note Date & YgcmTozuXxlqxvjy28-88-3960 Evaluation note* Type Assessment Date assessment [facility] Work Phone: [phone] 529-297110-17-2025 Evaluation note* Type Assessment Date assessment Tmi-40-0636lnnvwimwjtWij-17-2025 [facility] Work Phone: [phone] 954-949810-17-2025 History of Present illness Narrative* Encounter Date Complaint History Of Prese nt Illness Knee [facility] Work Phone: [phone] 798-901510-03-2025 Evaluation note* Diagnosis Onset Date Resolution Status Admit Date Acute gout acuteOctober 2024 10:49amPrepatellar bursitis of right kneeacuteOctober 2024 10:49amHypercholesterolemiaacuteOctober 2024 8:37amIFG (impaired fasting glucose)acuteOctober 2024 8:37amMedicare annual wellness visit, subsequentacuteOctober 2024 8:37amObesityacuteOctober 2024 8:37am Obstructive sleep apnea (adult) (pediatric)acuteOctober 2024 8:37amPrimary hypertensionacuteOctober 2024 8:37amScreening PSA (prostate specific antigen)acuteOctober 2024 8:37am [facility] Work Phone: [phone]) 697-487311-04-2024 Hospital Discharge instructions Patient Education 12/24/2023 13:34:03 Urethral Stricture Urethral Stricture Urethral stricture is when the tube that drains pee (urine) from the bladder out of the body (urethra) becomes too narrow. The urethra can become narrow because of scar tissue, infection, surgery, manuel injury. This can make it difficult to [...] peeing. This may cause decreased pee flow, dribbling,or spraying of pee. Other symptom of this [...] camera on the end (urethroscope) is used tolook at the urethra. A CT scan or [...] reconstructed. Follow these instructions at home: Take klmp-aib-fgylaqy and prescription medicines only as told by [...] provider. Document Revised: 11/30/2022 Document Reviewed: 11/30/2022 [employer] Patient Education 2023 [employer]. Follow Up Care 12/24/2023 09:50:39 With:MANJINDER LYLES, Lorenzo Valenzuela, URL Address: [facility] [address] [place] [address]- When: Unknown [facility] [place] 04-03-2024 Evaluation + Plan note Diagnostic Tests Pending * PSA Screen, Total 05/23/23 [facility] 04-03-2024 Hospital Discharge instructions Patient Education 05/23/2023 09:19:23 Urethral Stricture [...] camera on the end (urethroscope) is used tolook at the urethra. How is this treated? [...] reconstructed. Follow these instructions at home: Take gyjt-iuv-pzfycao and prescription medicines only as told by your health care provider. If you were prescribed an antibiotic medicine, take it as told by your health care provider. Do notstop taking the antibiotic even if you start [...] provider. Document Revised: 12/13/2021 Document Reviewed: 12/13/2021 [employer] Patient Education 2022 [employer]. Follow Up Care 01/22/2023 12:42:55 With:MANJINDER LYLES, Lorenzo Valenzuela, URL Address: [facility] [address], [place] [address]- When: Unknown [facility] 01-16-2024 Evaluation note* Encounter Date Diagnosis Assessment Notes Treatment Notes Treatment Clinical Notes Feb, Iron deficiency anemia due to ch ronic blood loss (ICD-10 - D50.0) [facility] [employer] Other 01-09-2024 Evaluation note* Encounter Date Diagnosis Assessment Notes Treatment Notes Treatment Clinical Notes Feb, Anemia (ICD-10 - D64.9) [facility] [employer] Other 11-14-2023 Evaluation + Plan note Diagnostic Tests Pending * UroVysion Fish and Urine Cyto ([facility]) 01/02/23 [facility]10-25-2023 Evaluation note* Encounter Date Diagnosis Assessment [...] reviewed and amended by provider signed below. Nov,IFG (impaired fasting glucose) (ICD-10 - R73.01)Healthy diet and exercise Weight loss encouraged. A1C yearly Nov,Hypertension (ICD-10 - I10)This patient is instructed to consume a healthy, low-fat, low-salt diet. They are also encouraged to continue exercise to achieve/maintain a normal BMI. Nov,leeding from urethra in male (ICD-10 - N36.8)Recurrent bleeding Occasionally will have urgency and hesitancy but resolves w/o treatment CT abdomen/pelvis and cystoscopy completed last year. Recommend referral back to Urology Nov,hronic venous insufficiency (ICD-10 - I87.2)Avoid salt and elevate lower extremities, support stockings, inspect legs and feet daily for blisters and ulcerations. Nov,enign prostatic hyperplasia with lower urinary tract symptoms (ICD- 10 - N40.1)Symptoms tolerable. Nov,Nocturia (ICD-10 - R35.1) Nov,Screening PSA (prostate specific antigen) (ICD-10 - Z12.5)Yearly FARAZ and PSA Nov,cute bronchitis due to other specified organisms (ICD-10 - J20.8) Instructed to use Robitussin or Mucinex for cough, saline or Flonase NS for congestion, Tylenol forpain and fever. [employer] Other 01-27-2023 NoteHNO ID: [id number] Author: Aure Piper MD Service: ? Author [...] Yes, Claudication:No CONDITIONS: Hypertension: Yes, Heart failure:No, [place] [employer] Functional Classification: Class I, Atrial [...] pacemaker/ICD:No, Median sternotomy scar:No, Sternal instability:No CARDIAC: [place] beat not localized, Cardiac thrill:No, Heart rate [...] present:Yes, Popliteal pulse:Yes, Beau (more content not included)...[facility]01-27-2023 History of Present illness Narrative* Aure [...] Yes, Claudication:No CONDITIONS: Hypertension: Yes, Heart failure:No, [place] [employer] Functional Classification: Class I,Atrial fibrillation:No, [...] pacemaker/ICD:No, Median sternotomy scar:No, Sternal instability:No CARDIAC: [place] beat not localized, Cardiac thrill:No, Heart rate [...] R06.09 Aure Piper MD documented in this encounterSumma Health W[facility] Center01-26-2023 Evaluation note* Encounter Date Diagnosis Assessment Notes Treatment Notes Treatment Clinical Notes Feb, Acute non-recurrent maxillary si nusitis (ICD-10 - J01.00) Instructed to use Robitussin or Mucinex for cough, saline or Flonase NS for congestion, Tylenol forpain and fever. Feb,IFG (impaired fasting glucose) (ICD-10 - R73.01)Healthy diet, reduce calories, reduce carbs, increase activity/exercise and weight loss. A1C every 6 mo Feb,Hypertension (ICD-10 - I10)This patient is instructed to consume a healthy, low-fat, low-salt diet. They are also encouraged to continue exercise to achieve/maintain a normal BMI. Feb,Morbid exogenous obesity (ICD-10 - E66.01)This patient has been instructed on a low-fat, high-fiber diet. They are instructed to reduce calori es, portion sizes and snacks. It is recommended that they exercise for 30 minutes, 3-5 times weekly. Feb,Other iron deficiency anemia (ICD-10 - D50.8)UTD w/ CRC screening w/o melena, hematochezia or change in appetite or bowel habits. B12, FA normal w/ low normal Fe. Fe supplement w/ recheck in 3 mo. Any symptoms of esophagitis, PUD, lower GE bleeding: EGD, scope Feb,hronic venous insufficiency (ICD-10 - I87.2)Avoid salt and elevate lower extremities, support stockings, inspect legs and feet daily for blisters and ulcerations. [employer] Other 01-11-2023 Hospital Discharge instructions Follow Up Care 03/01/2022 08:39:24 With:MANJINDER LYLES, Lorenzo Valenzuela, URL Address: [facility] [address] [place] [address]- When: Unknown Comments:Sched Cysto w/Possible UD [facility] 01-11-2023 Hospital Discharge instructions Patient Education 03/01/2022 08:31:17 Testicular Self-Exam, Gbhk-mw-Wxzp Testicular Self-Exam A self-exam of your testicles [...] 05/04/2009 Document Revised: 05/29/2019 Document Reviewed: 01/01/2017 [employer] Patient Education 2020 [employer]. 03/01/2022 08:31:11 Prostate Cancer Screening Prostate Cancer [...] have oneof these risk factors: ?Being of -[place] descent. ?Having a family history of prostate [...] you: Are older than age 55. Are -[place]. Have a father, brother, or uncle who [...] 11/16/2017 Document Revised: 01/18/2018 Document Reviewed: 11/16/2017 [employer] Patient Education 2019 [employer]. Follow Up Care 01/24/2021 09:05:41 With:Ricardo Hinson MD, PERCY Florentino Address: [facility] [address], [place] [address]- When:Within 1 Year(s) [facility] 11-30-2022 NoteHNO ID: [id number] Author: Damaris Gonzalez [employer] Service: ? Author Type: Statement Request Clerk Type: Progress Notes Filed: 01/18/2022 2:00 PM [...] STATUS: Discontinued PROCEDURE TYPE: NM Stress: 15.7mCi Di21h-Yrykdpl was administered IV for Rest Imaging at 12:40 by Hien Meza HARDWARE DEVELOPER. 46 mCi Mi41v-Asegaym was administered IV for Stress Imaging at 1357 by Hien Meza RT. ADMINISTRATION TIME: PATIENT DISCHARGED TO: Ambulatory patient, left NM department area. A Diagnostic radioactive procedure has taken place, with no further precautions necessary other than routine body substance precautions. More information regarding radiation safety can be found using this link: [email or web address] SIGNATURE: Damaris Gonzalez [employer] PATIENT NAME: Marlo Davies DATE: January 18, 2022 TIME: 12:38 PM PAGER/CONTACT #:[facility]11-30-2022 History of Present illness Narrative* Damaris [...] STATUS: Discontinued PROCEDURE TYPE: NM Stress: 15.7mCi Tn87n-Nwfupoc was administered IV for Rest Imaging at 12:40 by Hien Meza HARDWARE DEVELOPER. 46 mCi Qc03z-Kbcnnuz was administered IV for Stress Imaging at [...] 12:38 PM PAGER/CONTACT #: documented in this encounterSumma Health Wad[facility] - [facility]ittman [facility] Center01-04-2022 Evaluation note* Encounter Date Diagnosis Assessment Notes Treatment Notes Treatment Clinical Notes 04 Garrett, 2022 Obstructive sleep apnea (ICD-10 - G47.33) Fortunately the patient is using and benefiting from treatment. Reviewed download, pressures and AHI well-controlled. Encouraged to increase sleep time more possible. Call if problems, recheck 2 years Feb,Insomnia, unspecified type (ICD-10 - G47.00) Has some reinitiation insomnia if he goes to bed too early. Discussed sleep hygiene practices that could help with this, conservative intervention for reinitiation insomnia discussed. Hopefully this will allow him to increase sleep time. Call if problems Feb,therCall if any questions or problems. Patient is advised to work on healthy diet choices and appropriate servings, weight control, regular exercise as directed, and reduce fat intake. Use machine regularly, and keep up with mask changes as needed. Call if problems with mask toleration, increased sleepiness, or poor response to treatment. . [employer] Other Consult note* Clinical Note Date No Information [facility] Work Phone: Discharge summary* Clinical Note Date No Information [facility] Work Phone: Evaluation + Plan note Future Appointments Appointment Date:03/01/2023 08:30:00 AM Scheduled Provider:CONNER TELLES PA-C Location:[facility] Appointment Type:URO Office Visit [facility] Evaluation + Plan note Future Appointments Appointment Date:12/26/2023 09:00:00 AM Scheduled Provider: Location:[facility] Appointment Type:URO Nurse Visit [facility] evaluation note* Diagnosis Dyspnea on exertion- Primary Other dyspnea and respiratory abnormality Morbid obesity with BMI of 40.0-44.9, adult (HCC) Morbid obesity documented in this encounter [facility] CenterEvalutrinity health noteNo InformationNort [employer] Other Evaluation note* Diagnosis Other chest pain documented in this encounter [facility] CenterEvalutrinity health noteNo assessment information [facility] Work Phone: Evaluation note* Diagnosis Onset Date Resolution Status Acute gout acutePrimary hypertensionacuteUrethral strictureacuteHypercholesterolemiaacute IFG (impaired fasting glucose)acuteMedicare annual wellness visit, subsequent acuteObesityacuteObstructive sleep apnea (adult) (pediatric)acutePrimary hypertensionacuteScreening PSA (prostate specific antigen)acute [facility] Work Phone: History and physical note* Clinical Note Date No Information [facility] Work Phone: History general Narrative - Reported* Type Description Date Medical History Obstructive sleep apnea (adult) (pediatric) Medical HistoryDependence on other enabling machines and devicesSurgical History arthroscopic knee surgeryHospitalization HistoryNo Hospitalization history information [facility] Other [facility] general Narrative - Reported* Type Description Date Medical History Obstructive sleep apnea (adult) (pediatric) Medical HistoryDependence on other enabling machines and devicesMedical History Anemia, unspecified typeMedical HistoryHypertensionMedical HistoryBloody urethral dischargeMedical HistoryBenign prostatic hyperplasia with lower urinary tract symptoms, symptom details unspecifiedMedical HistoryCellulitis of left leg Medical HistoryChest painMedical HistoryIFG (impaired fasting glucose)Medical HistoryGastro-esophageal reflux disease with esophagitis, without bleeding Medical HistoryHigh risk medication useMedical HistoryHypercholesterolemia Surgical Historyarthroscopic knee surgeryHospitalization HistorySEE SURGICAL [facility] Other [facility] general Narrative - Reported* Type Description Date Medical History Obstructive sleep apnea (adult) (pediatric) Medical HistoryDependence on other enabling machines and devicesMedical History Anemia, unspecified typeMedical HistoryHypertensionMedical HistoryBloody urethral dischargeMedical HistoryBenign prostatic hyperplasia with lower urinary tract symptoms, symptom details unspecifiedMedical HistoryCellulitis of left leg Medical HistoryChest painMedical HistoryIFG (impaired fasting glucose)Medical HistoryGastro-esophageal reflux disease with esophagitis, without bleeding Medical HistoryHigh risk medication useMedical HistoryHypercholesterolemia Surgical Historyarthroscopic knee surgerySurgical [id number] HistoryColonoscopy07/2017Hospitalization HistorySEE [facility] Other History general Narrative - Reported* Type Description Date Medical History Obstructive sleep apnea (adult) (pediatric) Medical HistoryDependence on other enabling machines and devicesMedical History Anemia, unspecified typeMedical HistoryHypertensionMedical HistoryBloody urethral dischargeMedical HistoryBenign prostatic hyperplasia with lower urinary tract symptoms, symptom details unspecifiedMedical HistoryCellulitis of left leg Medical HistoryChest painMedical HistoryIFG (impaired fasting glucose)Medical HistoryGastro-esophageal reflux disease with esophagitis, without bleeding Medical HistoryHigh risk medication useMedical HistoryHypercholesterolemia Medical HistoryLeft Renal CystSurgical Historyarthroscopic knee surgerySurgical [id number] HistoryColonoscopy07/2017Hospitalization HistorySEE SURGICAL [facility] Other Hospital course Narrative No data available for this section [facility] Hospital Discharge instructions No data available for this section [facility] Date Instruction Additional Infor mation No Information [facility] Work Phone: Progress note No data available for this section [facility] Progress note* Clinical Note Date No Information [facility] Work Phone: Reason for referral (narrative)No reason for referral [facility]: Reason for referral (narrative)* Reason For Referral No Information [facility] Work Phone: Summary Purpose Family History No Family History Records Found Relationship Condition Age at Onset Recorded Date/T cristian father Unknown Family Member Type Diagnosis Age At Onset No Information Advance Directives No Advanced Directives Records Found Advance Directive Response Recorded Date/ Time Advance Directives No December 16, 2016 11:33am Advance Directive Response Recorded Date/ Time Advance Directives No December 16, 2016 12:33pm Directive Yes / No Effective Date File Name No Information Reason for Referral Reason Mr. Davies is kylah ng referred for persistent urethral bleeding Diagnosis 1 Bleeding from urethr a in male (N36.8) Referral Organization [facility] Tasneem clau Referring Provider First Name Jairo Referring Provider Last Name Abhi Referring Provider Specialty Internal Me dicine Referred Organization [facility] Referred Provider Lorenzo Chau Referred Address [address], [place],[address] Referred Provider Specialty Urology Referral Priority Routine [...] Chief Complaint gout in big toe Medicare WellnessReason for VisitAcute gout Primary hypertension Urethral stricture Hypercholesterolemia IFG (impaired fasting glucose) Medicare annual wellness visit, subsequent Obesity Obstructive sleep apnea (adult) (pediatric) Primary hypertension Screening PSA (prostate specific antigen) Chief Complaint Admit Date right elbow pain August 18, 2024 1:42 pm Chief Complaint Admit Date right knee inflammation November 21 10:49am Chief Complaint Admit Date right knee inflammation November 21 10:49am Wellness December 18, 2024 8 :37am Reason for Visit Admit Date Acute gout November 21, 2024 10 :49am Prepatellar bursitis of right knee Octob er 2024 10:49am Hypercholesterolemia December 18, 2024 8:37am IFG (impaired fasting glucose) November 212024 8:37am Medicare annual wellness visit, subseque nt December 18, 2024 8:37am Obesity December 18, 2024 8 :37am Obstructive sleep apnea (adult) (pediatr ic) December 18, 2024 8:37am Primary hypertension December 18, 2024 8:37am Screening PSA (prostate specific antigen ) December 18, 2024 8:37am Additional Source Comments (unrecognized sect ion and content) No Status Records FoundNo Status Records FoundNo Status Records FoundNo Status Records FoundNo Status Records FoundNo Status Records Found INFORMATION SOURCE (unrecogn ized section and content) DATE CREATED AUTHOR 08/13/2018 [facility] DATE CREATED AUTHOR AUTHOR'S ORGANIZ ATION 02/10/2022 [facility] DATE CREATED AUTHOR AUTHOR'S ORGANIZ ATION 03/17/2022 [facility] DATE CREATED AUTHOR AUTHOR'S ORGANIZ ATION 03/27/2023 [facility] DATE CREATED AUTHOR AUTHOR'S ORGANIZ ATION 12/21/2024 [facility] DATE CREATED AUTHOR AUTHOR'S ORGANIZ ATION 12/26/2024 [facility] Patient Care team informatio n (unrecognized section and content) Team MemberRelationshipSpecialtyStart DateEnd Date Jairo Moe DO [address] [place] [address] PCP - GeneralInternal Qekflorx80/30/22Team MemberRelationshipSpecialtyStart Date End Date Jairo Moe DO [address] [place] [address] PCP - GeneralInternal Ljukkdxd29/30/22Team MemberRelationshipSpecialtyStart Date End Date Jairo Moe DO [address] [place] [address] PCP - GeneralInternal Tcdsbsdw50/30/22 Team Status: Active Member Role Status Dates Jairo Moe DO Primary Care Provider Active Team Status: Inactive Member Role Status Dates Eric Rose MD Attending Provider Active S tart: February 22, 2023 End: February 22, 2023 Team Status: Inactive Member Role Status Dates Jairo Moe DO Primary Care Provider Active Start: March 20, 2023 End: March 20Millicent Voss ProviderActiveStart: March 20, 2023 End: March 20, 2023 Team Status: Inactive Member Role Status Dates Jairo Moe DO Primary Care Provide r, Attending Provider Active Start: September 27, 2023 End: September 27, 2023 Team Status: Inactive Member Role Status Dates Jairo Moe DO Primary Care Provide r, Attending Provider Active Start: December 18, 2023 End: December 18, 2023 Team Status: Inactive Member Role Status Dates Jairo Moe DO Primary Care Provider Active Start: August 18, 2024 End: August 18ten Moe , DOAttending ProviderActiveStart: August 18, 2024 End: August 18, 2024 Team Status: Inactive Member Role Status Dates Jairo Moe DO Primary Care Provider Active Start: November 21, 2024 End: November 21enkamar Moe , DOAttending ProviderActiveStart: November 21, 2024 End: November 21, 2024 Team Status: Active Member Role/Relationship Status Dates Jairo Moe DO Primary Care Provider Active Team Status: Inactive Member Role/Relationship Status Dates Jairo Moe , Primary Care Provider Active Start: November 21, 2024 End: November 21enkamar Moe , DOAttending ProviderActiveStart: November 21, 2024 End: November 21, 2024 Team Status: Inactive Member Role/Relationship Status Dates Jairo Moe DO Primary Care Provider Active Start: December 18, 2024 End: December 18enkamar Moe , DOAttending ProviderActiveStart: December 18, 2024 End: December 18, 2024 Name Effective Dates (start - stop) Status Members No Information Source Comments (unrecognize d section and content) In the event this informatio n is protected by the Federal Confidentiality of Alcohol and Drug Abuse Patient Records regulations: The Federal rules restrict any use of the information to criminally investigate or prosecute any alcohol or drug abuse patient.[facility] CenterIn the event this information is protected by the Federal Confidentiality of Alcohol and Drug Abuse Patient Records regulations: The Federal rules restrict any use of the information to criminally investigate or prosecute any alcohol or drug abuse patient.[facility] CenterIn the event this information is protected by the Federal Confidentiality of Alcohol and Drug Abuse Patient Records regulations: The Federal rules restrict any use of the information to criminally investigate or prosecute any alcohol or drug abuse patient.[facility] Reason for Visit (unrecogniz ed section and content) Repeat LabReminder ReasonCommentsRadiology NMSpecialtyDiagnoses / ProceduresReferred By Contact Referred To ContactMOLECULAR & FUNCTIONAL IMAGING Diagnoses Other chest pain Procedures NM CARDIAC PERF STRESS/EXERCISE MYOCARDIAL SPECT MULTIPLE STUDIES Provider, [facility] Molecular & Functional Imaging [address] [place] [address] Referral IDStatusReasonStart DateExpiration DateVisits RequestedVisits [id number] Auto-Generated Referral [facility] resultsMedication ClarificationDiscussion ReasonCommentsNew Patient Goals (unrecognized section and content) Goals [...] BE BASED ON THE PRIMARY CLINICAL RECORDS. [employer] [facility]. provides no warranty or guarantee of the accuracy or completeness of information in this document.
[2025-01-12 10:45] LABS: Alanine Aminotransferase 32 U/L (16-63); Albumin Globulin Ratio 0.9; Albumin Level 3.3 g/dL (3.4-5.0); Alkaline Phosphatase 70 U/L (46-116); Anion Gap 12.9; Aspartate Amino Transferase 17 U/L (15-37); Blood Urea Nitrogen 22.0 mg/dL (7.0-18.0); Calcium 8.5 mg/dL (8.5-10.1); Carbon Dioxide 28.7 mmol/L (21.0-32.0); Chloride 104 mmol/L (98-107); Cholesterol 185 mg/dL (<=200); Estimated GFR (African America >60 (>=60 mL/min/1.73m^2); Estimated GFR (Non-African Ame >60 (>=60 mL/min/1.73m^2); Globulin 3.6 g/dL; Glucose 108 mg/dL (74-106); HDL Cholesterol 69 mg/dL (40-60); Potassium 3.6 mmol/L (3.5-5.1); Sodium 142 mmol/L (136-145); Total Protein 6.9 g/dL (6.4-8.2); Triglycerides 87 mg/dL (<=150); Uric Acid 5.6 mg/dL (3.5-7.2); VLDL CHOLESTEROL 17.4 mg/dL
== END 2025-01-12 09:24 | disposition home or self-care (01) ==
LOC: LAB 09:29
PROVIDERS: PCP Internal Medicine; Visit Provider Internal Medicine
DX: E78.00 Pure hypercholesterolemia, unspecified (principal); I10 Essential (primary) hypertension; R73.01 Impaired fasting glucose; Z12.5 Encounter for screening for malignant neoplasm of prostate
CPT/HCPCS: 36415; 80053; 80061; 83036; 84550; 85025; G0103